=== PATIENT | male | born 1950 | race Caucasian/White ===

== ENCOUNTER 2021-09-06 10:59 | Inpatient (IN) | payer MEDICARE, OTHER, SELFPAY ==
[2021-09-06] VITALS (39 sets, daily range): BP systolic 86–140; BP diastolic 55–124; PULSE 68–94; RESP 11–38; TEMP 36–36.3; O2SAT 93–100; BMI 30.5
--- NOTE | ~2021-09-06 | US_ITS ---
EXAMINATION: US venous doppler [facility] DATE: 09/07/2021 19:10 INDICATION: elevated D-Dimer, SOB . TECHNIQUE: Grayscale images without and with compression and Doppler images of the bilateral lower ex tremity veins were obtained. COMPARISON: 02/27/2018. FINDINGS: The right common femoral vein, profunda (deep) femoral vein, femoral vein, popliteal vein, peroneal v ein, posterior tibial veins, gastrocnemius vein, and greater saphenous vein are patent. The left common femoral vein, profunda (deep) femoral vein, femoral vein, popliteal vein, peroneal ve in, posterior tibial veins, gastrocnemius vein, and greater saphenous vein are patent. IMPRESSION: 1. Patent bilateral lower extremity veins. No evidence of deep venous thrombosis Reviewed, dictated and finalized at location K. IMPRESSION: 1. Patent bilateral lower extremity veins. No evidence of deep venous thrombos is
--- NOTE | ~2021-09-06 | XR_ITS ---
EXAMINATION: XR chest 2V DATE: 09/06/2021 11:41 INDICATION: Shortness of breath. TECHNIQUE: Frontal and lateral views of the chest were obtained. COMPARISON: Chest 2 views 12/26/2018 FINDINGS: Tamiko B lines are noted, consistent with mild pulmonary edema. No pleural effusion or pneu mothorax. Cardiomegaly is noted. Median sternotomy wires and mediastinal surgical clips are seen, lik peggy from prior coronary artery bypass grafting. There is a left chest pacer/defibrillator with lead i n right ventricle. There is an old healed fracture of left clavicle. IMPRESSION: 1. Mild pulmonary edema. 2. Cardiomegaly. Reviewed, dictated and finalized at location B.
--- NOTE | ~2021-09-06 | XR_ITS ---
EXAMINATION: XR chest 2V DATE: 09/07/2021 14:08 INDICATION: Shortness of breath. TECHNIQUE: Frontal and lateral views of the chest were obtained. COMPARISON: Chest 2 views 09/06/2021 FINDINGS: There is no pneumonia, pleural effusion, or pneumothorax. Cardiomediastinal is noted. Media n sternotomy wires and mediastinal surgical clips are seen, likely from prior coronary artery bypass grafting. There is a left chest pacer/defibrillator with lead in right ventricle. There is an old hea led left clavicle fracture. IMPRESSION: 1. Cardiomegaly. Reviewed, dictated and finalized at location B. IMPRESSION: 1. Cardiomegaly.
--- NOTE | ~2021-09-06 | NM_ITS ---
EXAMINATION: NM pulmonary perfusion DATE: 09/08/2021 11:02 INDICATION: Shortness of breath. TECHNIQUE: 4.9 mCi Tc-99m MAA was administered intravenously for perfusion images. Scintigraphic jeremy ges of the chest were obtained. COMPARISON: Chest 2 views 09/07/2021 FINDINGS: Perfusion images show no defects. IMPRESSION: 1. Pulmonary embolism absent. Reviewed, dictated and finalized at location B.
--- NOTE | 2021-09-06 11:04 | ECG_ITS ---
Measurements Intervals [place] Rate: 78 P: FL: 0 QRS: 263 QRSD: 187 T: 109 QT: 471 QTc: 539 Interpretive Statements SINUS RHYTHM BORDERLINE AV CONDUCTION DELAY VENTRICULAR BIGEMINY RIGHT BUNDLE BRANCH BLOCK LEFT POSTERIOR FASCICULAR BLOCK ST-T WAVE ABNORMALITY IN ANTEROLATERAL LEADS- CONSIDER ISCHEMIA BASELINE ARTIFACT- I, III, AVR, AVL ABNORMAL ECG Electronically Signed On 09-06-2021 11:24:06 CDT by Perez Ariza D.O.
--- NOTE | 2021-09-06 12:31 | ED.SOB ---
HPI - SOB/Dyspnea General Chief Complaint: Shortness of Breath/Dyspnea Stated Complaint: dyspnea Time Seen by Provider: 09/06/21 11:50 History of Present Illness HPI Narrative: 71 y/o male presents to the ER today for worsening problems with shortness of breath over the past several days. He gets very short of breath and his O2 sats have been dropping into the 80s at home with minimal exertion. He has intermittent coughing spells as well, non-productive. No fever or chills. He denies having chest pain but says he gets annoying sensation in his ribs at times. No dizziness or lightheadeness. No abdominal pain, nausea or vomiting. No leg swelling. He has significant cardiac history. He has has 6 previous heart attacks. No history on file at our hospital. Related Data Allergies Allergy/AdvReac Type Severity Reaction Status Date / Time No Known Allergies Allergy Unknown Unverified 12/26/18 18:12 Review of Systems Constitutional: Constitutional: Denies chills, Denies fever(s) and Denies weakness Eyes: Eyes: Reports no additional eye complaints ENT: Reports system reviewed and no additional complaints, except as documented Cardiovascular: Cardiovascular: Reports no additional cardiovascular complaints, Denies chest pain and Denies radiating jaw, neck or arm pain Respiratory: Respiratory: Reports cough, Reports dyspnea and Denies wheezing Gastrointestinal: Gastrointestinal: Denies abdominal pain, Denies diarrhea, Denies nausea and Denies vomiting Genitourinary: Genitourinary: Denies oliguria, Denies dysuria and Denies urinary frequency Musculoskeletal: Musculoskeletal: Denies back pain, Denies myalgias and Denies arthralgias Integumentary/Breasts: Skin/Breast: Reports system reviewed and no additional complaints, except as docu Neurologic: Denies dizziness, Denies headache(s), Denies focal weakness and Denies numbness Psychiatric: Psychiatric: Denies anxiety and Denies depression Endocrine: Endocrine: Denies fatigue Hematologic/Lymphatic: Hematologic/Lymphatic: Reports no additional hematologic/lymphatic complaints Allergic/Immunologic: Allergic/Immunologic: Reports no additional allergic/immunologic complaints [facility] Past Medical History Medical History (Updated 09/06/21 @ 18:31 by Lata Lara, SANA) CAD (coronary artery disease) CHF (congestive heart failure) Myocardial infarction Exam Const: General: no acute distress Orientation/consciousness: patient oriented x3 HENMT: Head: normal to inspection Eyes: Conjunctivae: conjunctivae normal Neck: Neck: normal visual inspection Chest: Chest palpation & inspection: normal inspection of the chest Resp: Effort & Inspection: normal respiratory effort Auscultation: clear to auscultation bilaterally Cardio: Rate: regular rate Rhythm: regular rhythm GI: GI Palp: Yes Soft to palpation, No Tenderness to palpation present (GI) and No Guarding due to palpation present (GI) : Male General Exam: Yes normal external exam Testes: Testes normal Skin: General skin exam: normal color Rashes: no rashes Neuro: General: patient oriented x3 Extrem: General: normal to inspection Psych: Mental Status: mental status grossly normal Affect: normal affect Attitude: cooperative Course Course Emergency Course: 1500 Discussed with Yana CARY, hospitalist, accepting patient for admission for CHF exacerbation. Vital Signs Vital signs: Vital Signs Temperature 36.3 C L 09/06/21 11:03 Pulse Rate 79 09/06/21 11:03 Respiratory Rate 21 H 09/06/21 11:03 Blood Pressure 131/89 09/06/21 11:03 Pulse Oximetry 97 09/06/21 11:03 Temperature 36.3 C L 09/06/21 11:03 Pulse Rate 70 09/06/21 16:32 Respiratory Rate 23 H 09/06/21 16:32 Blood Pressure 110/85 09/06/21 16:02 Pulse Oximetry 97 09/06/21 16:32 MDM - SOB/Dyspnea Lab Data Attestation: I reviewed the patient's lab results. Result diagrams: 09/06/21 12:35 09/06/21 12:35
[2021-09-06 12:44] LABS: Basophils Absolute Auto 0.1 K/mm3 (0.0-0.1); Basophils Percent Auto 0.6 % (0.2-1.2); Eosinophils Percent Auto 0.2 % (0-4.4); Hematocrit 52.6 % (42.0-52.0); Hemoglobin 17.3 g/dL (14.0-18.0); Immature Granulocyte Absolute 0.02 K/mm3 (0.00-0.031); Immature Granulocyte Percent A 0.2 % (0-0.5); Lymphocytes Absolute Auto 1.08 K/mm3 (0.9-3.2); Mean Corpuscular HGB Conc 32.9 g/dl (32-36); Mean Corpuscular Hemoglobin 28.7 pg (26-34); Mean Corpuscular Volume 87.2 fl (80-100); Mean Platelet Volume 11.3 fl (7.4-10.4); Monocytes Absolute Auto 0.3 K/mm3 (0.1-0.6); Neutrophils Absolute Auto 7.6 K/mm3 (1.3-6.7); Platelet Count Result 171 k/mm3 (150-375); Red Blood Count 6.03 M/mm3 (4.6-6.20); Red Cell Distribution Width 13.2 % (11.5-14.5)
[2021-09-06 12:56] LABS: Alanine Aminotransferase 19 U/L (6-50); Albumin Level 4.2 g/dL (3.5-5.1); Alkaline Phosphatase 67 U/L (38-126); Anion Gap 8 mmol/L (8-16); Aspartate Amino Transferase 23 U/L (17-59); Bilirubin,Total 1.3 mg/dL (0.2-1.3); Blood Urea Nitrogen 18 mg/dL (9-20); Calcium 8.3 mg/dL (8.4-10.2); Carbon Dioxide 23 mmol/L (22-30); Chloride 106 mmol/L (98-107); Estimated CRCL calculation 55 ml/min; Estimated Glomerular Filt Rate 54; Glucose 116 mg/dL (65-110); Potassium 3.9 mmol/L (3.4-5.0); Sodium 137 mmol/L (137-145)
[2021-09-06 12:58] LABS: INR 1.2; Prothrombin Time 14.3 Seconds (11.1-14.7)
[2021-09-06 12:59] LABS: Partial Thromboplastin Time 27.9 SECONDS (22.3-36.8)
[2021-09-06 13:08] LABS: NT Pro B Type Natriuretic Pept 4440 pg/mL (5-100); Troponin I 0.029 ng/mL (0.000-0.034)
[2021-09-06] MEDS: FUROSEMIDE INJ 40 MG/4 ML VIAL IV PUSH (14:32)
--- NOTE | 2021-09-06 17:33 | PM.IMHP ---
H&P: HPI History of Present Illness Date/Time: 09/06/21 17:33 this is a 71-year-old male patient who states that he does have CHF he came to the emergency room today for worsening shortness of breath over the last several days. The patient stated that his O2 was dropping to the 80s at home with minimal exertion. Also when the patient fell asleep in the emergency room his son stated that the patient was having periods of apnea. The patient denies having any chest pain. The patient has no fever chills. No abdominal pain no nausea vomiting. He has trace swelling to his lower extremities. The patient does have a significant cardiac history with a triple bypass in 2 stents. He also has a defibrillator. The patient goes elsewhere for his cardiology care. EKG today shows sinus rhythm borderline AV conduction delay ventricular bigeminy right bundle branch block. Left posterior fascicular block. ST T-wave abnormality in anterolateral leads consider ischemia. Baseline artifact 1 3 AVR and aVL. Troponin negative x2. BNP is 4440. Patient typically has his care at [facility]. Patient is on room air and his chest x-ray was read as mild pulmonary edema. Cardiomegaly. Patient was given IV Lasix in the emergency room. The patient voided approximately 2000 mL in the emergency room. The patient also has a history of COPD. The patient is being admitted for observation on the date of service of 09/06/2021. Chief Complaint: Shortness of breath Review of Systems Review of Systems: All systems reviewed & are unremarkable except as noted in HPI and below Constitutional: Constitutional: Reports as per HPI and Reports no additional constitutional complaints Eyes: Eyes: Reports as per HPI and Reports no additional eye complaints ENT: Reports system reviewed and no additional complaints, except as documented and Reports Normal hearing present Cardiovascular: Cardiovascular: Reports no additional cardiovascular complaints Respiratory: Respiratory: Reports no additional respiratory complaints and Reports no additional respiratory complaints Gastrointestinal: Gastrointestinal: Reports as per HPI and Reports no additional gastrointestinal complaints Musculoskeletal: Musculoskeletal: Reports no additional musculoskeletal complaints Integumentary/Breasts: Skin/Breast: Reports system reviewed and no additional complaints, except as docu and Reports as per HPI Neurologic: Reports system reviewed and no additional complaints, except as documented, Reports as per HPI and Reports Normal hearing present Psychiatric: Psychiatric: Reports no additional psychiatric complaints and Reports as per HPI Endocrine: Endocrine: Reports no additional endocrine complaints Hematologic/Lymphatic: Hematologic/Lymphatic: Reports no additional hematologic/lymphatic complaints Allergic/Immunologic: Allergic/Immunologic: Reports no additional allergic/immunologic complaints [facility], [facility] Past Medical History Medical History (Updated 09/06/21 @ 22:14 by Yana Joseph NP) CAD (coronary artery disease) Cardiac defibrillator in situ CHF (congestive heart failure) COPD (chronic obstructive pulmonary disease) HTN (hypertension), malignant Hyperlipidemia Myocardial infarction Surgical History Surgical History History of coronary artery stent placement X2 History of tonsillectomy S/P triple vessel bypass Family History Family History (Updated 09/06/21 @ 22:14 by Yana Joseph NP) Mother Acute myocardial infarction Social History Social History (Updated 09/06/21 @ 22:15 by Yana Joseph NP) Social History: The patient lives at home with his . He has 4 children. His is the durable power claims attorney for healthcare. The patient occasionally has a social drink. The patient stated that he quit smoking at the beginning of COVID 19. He is retired. Code status full code Smoking packs per day: 1 Smoking c
--- NOTE | 2021-09-06 18:29 | PC.NURSE ---
This patient, Lamont Bustillo, was admitted to Medical Room 258-01. Patient/family oriented to hospital policies and general routines including ID bracelet, bed and alarms, visiting hours, pain management, procedures, bathroom and other care routines, personal items, smoking policy, room service/diet, and visiting hours. Information on how to activate the Rapid Response Team has been discussed. Patient/Family are encouraged to report perceived risks to care and to ask questions if they do not understand what they are told or what they should do.
[2021-09-06 20:20] LABS: Troponin I 0.033 ng/mL (0.000-0.034)
[2021-09-07] VITALS (14 sets, daily range): BP systolic 100–109; BP diastolic 74–77; PULSE 52–93; RESP 18–22; TEMP 36.1–36.3; O2SAT 95–100
--- NOTE | 2021-09-07 | ECHO_ITS ---
Patient Info Name: Lamont Bustillo Age: 71 years : 1950 Gender: Male Ht: 71 in Wt: 219 lbs BSA: 2.26 m2 HR: 93 bpm BP: 100 / 77 mmHg Heart Rhythm: Sinus Rhythm Technical Quality: Fair Exam Date: 09/07/2021 8:47 AM Exam Location: [facility] Pulmonary Patient Status: Outpatient Admit Date: 09/06/2021 Staff Ordering Physician: Yana Joseph NP Plastic And Reconstructive Surgeon: Khushboo Rossi RDCS Attending Provider: Mckenna Stokes PA-C Referring Physician: Jake LANDRUM; Exam Type: CA echo dop color flow w con Study Info Indications - pulmonary edema Complete two-dimensional, color flow and Doppler transthoracic echocardiogram is performed with contrast to opacify the left ventricle and to improve the deliniation of the left ventricle endocardial borders. Contrast/Agitated Saline Contrast/Ag. Saline: Definity Amount: 2.00 ml Administered By: Khushboo Rossi RDCS Existing IV Access: Yes IV Access Condition: patent with no signs of infiltration Summary 1. Echo contrast was used. Severe LV enlargement, normal wall thickness, severe global LV systolic dysfunction, ejection fraction about 20-25%. Grade 3/4 diastolic dysfunction. Mild left atrial enlargement. Normal mitral valve structure, trivial MR. Normal aortic valve structure, no stenosis or regurgitation. Trace TR, mild pulmonary hypertension, RVSP 36 mmHg. Left Ventricle Left ventricular chamber dimension is severely enlarged. Left ventricular systolic function is severely reduced, estimated at 20-25%. There is no increased left ventricular wall thickness. The left ventricular diastolic function is abnormal. Right Ventricle Right ventricular chamber dimension is normal. Right ventricular systolic function is reduced. Left Atria Left atrial chamber dimension is mildly enlarged. Right Atria Right atrial chamber dimension is mildly enlarged. Aortic Valve The aortic valve is normal. There is no aortic valve stenosis. Pulmonic Valve The pulmonic valve is normal. Mitral Valve The mitral valve has normal leaflets. There is trace mitral valve regurgitation. Tricuspid Valve The tricuspid valve leaflets are normal. There is trace tricuspid valve regurgitation. Mild pulmonary hypertension, estimated pulmonary arterial systolic pressure is 36 mmHg. Pericardium/Pleural The pericardium appears normal. Aorta The aortic root size at the sinus of Valsalva is normal. Left Ventricular Outflow Tract Name Value Normal LVOT 2D LVOT Diameter 2.10 cm LVOT Doppler LVOT Peak Gradient 2 mmHg LVOT Mean Gradient 1 mmHg LVOT VTI 10.74 cm LVOT VTI/AV VTI Ratio 0.68 LVOT Stroke Volume 37.17 ml LVOT CO 2.33 l/min LVOT CI 1.03 L/min/m2 Pulmonic Valve Name Value Normal
[2021-09-07 05:25] LABS: Basophils Absolute Auto 0.1 K/mm3 (0.0-0.1); Basophils Percent Auto 0.7 % (0.2-1.2); Eosinophils Absolute Auto 0.1 K/mm3 (0-0.3); Eosinophils Percent Auto 1.5 % (0-4.4); Hematocrit 49.8 % (42.0-52.0); Hemoglobin 16.7 g/dL (14.0-18.0); Immature Granulocyte Absolute 0.03 K/mm3 (0.00-0.031); Immature Granulocyte Percent A 0.4 % (0-0.5); Lymphocytes Absolute Auto 2.17 K/mm3 (0.9-3.2); Lymphocytes Percent Auto 30.1 % (18.3-44.2); Mean Corpuscular HGB Conc 33.5 g/dl (32-36); Mean Corpuscular Hemoglobin 29.2 pg (26-34); Mean Corpuscular Volume 87.2 fl (80-100); Mean Platelet Volume 11.3 fl (7.4-10.4); Monocytes Absolute Auto 0.4 K/mm3 (0.1-0.6); Neutrophils Absolute Auto 4.4 K/mm3 (1.3-6.7); Neutrophils Percent Auto 61.3 % (45.5-73.1); Platelet Count Result 146 k/mm3 (150-375); Red Blood Count 5.71 M/mm3 (4.6-6.20); Red Cell Distribution Width 12.8 % (11.5-14.5); White Blood Count 7.2 K/mm3 (4.5-10.0)
[2021-09-07 05:32] LABS: Alanine Aminotransferase 18 U/L (6-50); Albumin Level 4.1 g/dL (3.5-5.1); Alkaline Phosphatase 64 U/L (38-126); Anion Gap 10 mmol/L (8-16); Aspartate Amino Transferase 23 U/L (17-59); Blood Urea Nitrogen 20 mg/dL (9-20); Calcium 8.4 mg/dL (8.4-10.2); Carbon Dioxide 21 mmol/L (22-30); Chloride 106 mmol/L (98-107); Estimated CRCL calculation 48 ml/min; Estimated Glomerular Filt Rate 46; Glucose 106 mg/dL (65-110); Potassium 3.6 mmol/L (3.4-5.0); Sodium 137 mmol/L (137-145)
--- NOTE | 2021-09-07 08:47 | PM.IMPN ---
Progress Note: A&P Assessment and Plan (1) Acute exacerbation of CHF (congestive heart failure): Qualifiers: Heart failure type: unspecified Qualified Code(s): I50.9 - Heart failure, unspecified <Mckenna Stokes PA-C - Last Filed: 09/07/21 12:13> Code(s): I50.9 - Heart failure, unspecified <Mckenna Stokes PA-C - Last Filed: 09/07/21 12:13> Status: Acute <Mckenna TonyKathi Stokes PA-C - Last Filed: 09/07/21 12:13> Assessment and Plan: 09/07/2021 echo shows severe LV enlargement, severe global LV systolic dysfunction, EF 20-25%. Grade 3/4 diastolic dysfunction. Mild left atrial enlargement. No prior echos to compare to. Given his history I have consulted Cardiology and greatly appreciate their recommendations. Patient was admitted for shortness of breath x several days. Troponin I and 3 hour or 0.29 and 0.33 respectively, given his history, will complete third troponin. He does endorse orthopnea, PND, and his family does observed apneic episodes. Denies lower extremity swelling. EKG shows bigeminy, RBBB, LPFB, and ST-T wave abnormalities in Leads V1-V3. Chest x-ray was read as mild pulmonary edema with cardiomegaly. Patient was given IV Lasix and has already had 2000 mL out. Please continue with strict I&O. Continue with Coreg and lisinopril. Echo ordered Final troponin. Consult placed to cardiology Will continue diuresis. Daily weights Strict I&Os <Mckenna Stokes PA-C - Last Filed: 09/07/21 12:13> (2) Hx of CABG: Code(s): Z95.1 - Presence of aortocoronary bypass graft <Mckenna Stokes PA-C - Last Filed: 09/07/21 12:13> Status: Acute <Mckenna Stokes PA-C - Last Filed: 09/07/21 12:13> Assessment and Plan: Patient denies any chest pain, diaphoresis. Serial troponins negative here. Review of labs shows troponin elevations in 2019. Patient does verbally report history of CABG and now s/p revision potentially in 2020. He is a poor historian, and he is uncertain when he last saw his social psychologist. Patient is unsure if he takes aspirin and Plavix anymore at home. I do see that it is on his med list and have continued here. I have consulted cardiology given his history. Continue aspirin and plavix Continue to monitor for chest pain. <Mckenna Stokes PA-C - Last Filed: 09/07/21 12:13> (3) Ventricular bigeminy: Code(s): I49.8 - Other specified cardiac arrhythmias <Mckenna Stokes PA-C - Last Filed: 09/07/21 12:13> Status: Acute <Mckenna Stokes PA-C - Last Filed: 09/07/21 12:13> Assessment and Plan: Ventricular bigeminy seen upon admission. Patient is reportedly having runs of V-tach during his stay, and is symptomatically dyspneic during these. He does have a cardiac pacemaker defibrillator, and he states it has never gone off. He denies syncope or near syncope. TSH normal magnesium 2.0, potassium 3.6, calcium 8.4. Continue to monitor, plan as above. <Mckenna Stokes PA-C - Last Filed: 09/07/21 12:13> (4) Sleep apnea: Code(s): G47.30 - Sleep apnea, unspecified <Mckenna Stokes PA-C - Last Filed: 09/07/21 12:13> Status: Acute <Mckenna Stokes PA-C - Last Filed: 09/07/21 12:13> Assessment and Plan: Son reports several minutes on apneic episodes last night in the ER. Patient has never been previously evaluated for sleep apnea. ApneaLink was ordered on patient which showed N HI od 25.4 and probably silvia franco respirations with 112 apneic episodes. Patient hs a suspected breathing disorder, will be referred for OP sleep study. <Mckenna Stokes PA-C - Last Filed: 09/07/21 12:13> (5) COPD (chronic obstructive pulmonary disease): Code(s): J44.9 - Chronic obstructive pulmonary disease, unspecified <Mckenna Stokes PA-C - Last Filed: 09/07/21 12:13> Status: Acute <Mckenna Stokes PA-C - Last Filed: 09/07/21 12:13> As
[2021-09-07] MEDS: ATORVASTATIN 40 MG TABLET 80 MG PO (09:04)
[2021-09-07] MEDS: CLOPIDOGREL BISULFATE 75 MG TABLET PO (09:04)
[2021-09-07] MEDS: lisinopriL 20 MG TABLET PO (09:04)
[2021-09-07] MEDS: ENOXAPARIN 40 MG/0.4 ML SYRINGE SUB-Q (09:04)
[2021-09-07] MEDS: FUROSEMIDE INJ 40 MG/4 ML VIAL IV PUSH (09:04)
[2021-09-07] MEDS: carvediloL 25 MG TABLET PO ×2 (09:04→21:25)
[2021-09-07] MEDS: ASPIRIN 81 MG CHEWABLE TABLET PO (09:05)
[2021-09-07] MEDS: UMECLIDINIUM BROMIDE 62.5 MCG ELLIPTA 1 PUFF INHALATION (09:05)
[2021-09-07] MEDS: PERFLUTREN LIPID MICROSPHERES 1.5 ML VIAL DILUTED TO 10 ML TOTAL VOLUME IV PUSH (09:30)
--- NOTE | 2021-09-07 09:31 | IVDEFINITY ---
Prior to administration of IV Definity the patient was educated on the risks and benefits of the imaging enhancing agent including potential adverse side effects. The patient verbalized understanding. Allergies were verified. No exclusion criteria were identified and at least one of the following inclusion criteria were met: 1) physician request, 2) patient technically difficult to image (per the [place] [employer]chocardi[employer] guidelines of two or more segments not discernable within the apical view), or 3) questionable left ventricular function. ?
--- NOTE | 2021-09-07 09:42 | ECG_ITS ---
Measurements Intervals [place] Rate: 70 P: 57 MD: 201 QRS: 166 QRSD: 199 T: 73 QT: 463 QTc: 501 Interpretive Statements SINUS RHYTHM FREQUENT VENTRICULAR PREMATURE COMPLEXES RIGHT BUNDLE BRANCH BLOCK LEFT POSTERIOR FASCICULAR BLOCK ST-T WAVE ABNORMALITY IN ANTEROLATERAL LEADS- CONSIDER ISCHEMIA ABNORMAL ECG Electronically Signed On 09-07-2021 10:30:34 CDT by Perez Ariza D.O.
[2021-09-07 09:49] LABS: Troponin I 0.024 ng/mL (0.000-0.034)
--- NOTE | 2021-09-07 12:33 | PC.NURSE ---
1010am Called Mckenna DE LUNA to report Stat EKG findings. No new orders given.
[2021-09-07] MEDS: ALBUTEROL SULFATE NEB 2.5 MG/3 ML INH 0.63 MG INHALATION (13:39)
--- NOTE | 2021-09-07 14:06 | PM.CNCAR ---
Assessment and Plan Assessment and plan (1) Acute on chronic combined systolic and diastolic CHF (congestive heart failure): Code(s): I50.43 - Acute on chronic combined systolic (congestive) and diastolic (congestive) heart failure Status: Acute Assessment and Plan: Patient has worsening shortness of breath, somewhat odd because of its episodic nature which can occur at rest. Volume overloaded on admission, with edema and an elevated BNP. Does not appear to be very volume overloaded today, after receiving IV diuretic therapy. Chest x-ray is clear today.. Some of the patient's problem is just severe cardiomyopathy and very poor cardiac output. Wonder if some of the episodic nature is due to Valeriano-Brar respiration? Some is probably due to orthopnea and PND. I also wonder if any of this is due to arrhythmias--some tachycardia seen particularly with activity, but nothing that is clearly atrial fibrillation. Occasionally the patient's heart rate will a drop suddenly and he will start pacing VVI rate 40. Also he has spells of ventricular bigeminy. Unlikely that this is due to intermittent ischemic events. Troponins are minimally elevated and flat, and there is no chest pain. However, I will compare his current EKGs with old ones. Check a D-dimer, consider PE etc. although unlikely. (2) Ischemic cardiomyopathy: Code(s): I25.5 - Ischemic cardiomyopathy Status: Acute Assessment and Plan: Longstanding severe ischemic cardiomyopathy, EF 20-25%. Currently taking carvedilol and lisinopril Try switching lisinopril to enalapril, although this is not affordable in the past. Add spironolactone Add Farxiga Unlikely to benefit from an upgrade to a biventricular pacemaker since he has a right bundle branch block, not a left bundle branch block. Would be hesitant to use dobutamine or Milrinone because of his frequent ventricular ectopy. Try to increase carvedilol, samaria becaue of the ventricular ectopy, if his heart rate and blood pressure allow. (3) PVCs (premature ventricular contractions): Code(s): I49.3 - Ventricular premature depolarization Status: Acute Assessment and Plan: Patient has frequent PVCs, some brief nonsustained ventricular tachycardia, and occasional bigeminy. (4) Bradycardia: Code(s): R00.1 - Bradycardia, unspecified Status: Acute Assessment and Plan: Patient has exhibited a couple episodes of fairly abrupt but also fairly brief bradycardia during which he paces VVI rate 40. Has a single lead ICD; if he has frequent episodes of bradycardia and paces a lot we may need to consider an upgrade to a dual chamber device. So far I do not see evidence that we need to pursue this. (5) ICD (implantable cardioverter-defibrillator) in place: Code(s): Z95.810 - Presence of automatic (implantable) cardiac defibrillator Status: Acute Assessment and Plan: Implanted for primary prevention, no therapies delivered. (6) CAD (coronary artery disease): Code(s): I25.10 - Atherosclerotic heart disease of [place] coronary artery without angina pectoris Status: Acute Assessment and Plan: Extensive coronary history with CABG and interventions in the past. Flat troponins, minimally elevated No chest pain CAD is probably stable. Continue aspirin, Plavix and atorvastatin Patient does have anterolateral T-wave inversion however, will try to find an old EKG for comparison. (7) MADHU (obstructive sleep apnea): Code(s): G47.33 - Obstructive sleep apnea (adult) (pediatric) Status: Acute Assessment and Plan: Apnea link suggested sleep apnea and possible Valeriano-Brar respiration. Son describes seeing cyclical breathing consistent with Valeriano-Brar respiration, a sign of severely poor cardiac output History of Present Illness History of Present Illness Consult date/time: 09/07/21 14:06 Reason For Visit: CHF exa
[2021-09-07 15:56] LABS: D Dimer 1.74 ug/mL (<0.48)
[2021-09-07] MEDS: busPIRone HCL 10 MG, busPIRone HCL 5 MG 15 MG PO (21:25)
[2021-09-08] VITALS (23 sets, daily range): BP systolic 80–120; BP diastolic 40–72; PULSE 48–64; RESP 17–20; TEMP 35.8–36.3; O2SAT 93–100
[2021-09-08] MEDS: ALBUTEROL SULFATE NEB 2.5 MG/3 ML INH 0.63 MG INHALATION ×4 (02:09→21:20)
[2021-09-08] MEDS: carvediloL 25 MG TABLET PO (08:30)
[2021-09-08] MEDS: ENOXAPARIN 40 MG/0.4 ML SYRINGE SUB-Q (08:30)
[2021-09-08] MEDS: EMPAGLIFLOZIN 10 MG TABLET PO (08:30)
[2021-09-08] MEDS: UMECLIDINIUM BROMIDE 62.5 MCG ELLIPTA 1 PUFF INHALATION (08:31)
[2021-09-08] MEDS: ASPIRIN 81 MG CHEWABLE TABLET PO (08:31)
[2021-09-08] MEDS: ATORVASTATIN 40 MG TABLET 80 MG PO (08:31)
[2021-09-08] MEDS: busPIRone HCL 10 MG, busPIRone HCL 5 MG 15 MG PO ×2 (08:31→21:08)
[2021-09-08] MEDS: CLOPIDOGREL BISULFATE 75 MG TABLET PO (08:31)
[2021-09-08] MEDS: SPIRONOLACTONE 25 MG TABLET PO (08:31)
[2021-09-08] MEDS: FUROSEMIDE INJ 40 MG/4 ML VIAL IV PUSH (09:40)
--- NOTE | 2021-09-08 13:22 | PM.IMPN ---
Progress Note: A&P Assessment and Plan (1) Acute exacerbation of CHF (congestive heart failure): Qualifiers: Heart failure type: unspecified Qualified Code(s): I50.9 - Heart failure, unspecified Code(s): I50.9 - Heart failure, unspecified Status: Acute Assessment and Plan: 09/07/2021 echo shows severe LV enlargement, severe global LV systolic dysfunction, EF 20-25%. Grade 3/4 diastolic dysfunction. Mild left atrial enlargement. No prior echos to compare to. Given his history I have consulted Cardiology and greatly appreciate their recommendations. Patient was admitted for shortness of breath x several days. Troponins are minimally elevated and flat. He does endorse orthopnea, PND, and his family does observed apneic episodes. Denies lower extremity swelling. EKG shows bigeminy, RBBB, LPFB, and ST-T wave abnormalities in Leads V1-V3. Chest x-ray was read as mild pulmonary edema with cardiomegaly. Patient is on 40 mg IV Lasix daily with good output. Continue with Coreg and lisinopril. Echo reviewed Final troponin. Will continue diuresis. Daily weights Strict I&Os Further management per cardiology (2) Hx of CABG: Code(s): Z95.1 - Presence of aortocoronary bypass graft Status: Acute Assessment and Plan: Patient denies any chest pain, diaphoresis. Serial troponins minimally elevated but flat as noted above. Review of labs shows troponin elevations in 2019. Patient does verbally report history of CABG and now s/p revision potentially in 2019. 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 Patient is unsure if he takes aspirin and Plavix anymore at home. I do see that it is on his med list and have continued here. I have consulted cardiology given his history. Continue aspirin and plavix (3) Ventricular bigeminy: Code(s): I49.8 - Other specified cardiac arrhythmias Status: Acute Assessment and Plan: Ventricular bigeminy seen upon admission. Patient is reportedly having runs of V-tach during his stay, and is symptomatically dyspneic during these. He does have a cardiac pacemaker defibrillator, and he states it has never gone off. He denies syncope or near syncope. TSH normal magnesium 2.0, potassium 3.6, calcium 8.4. Continue to monitor, plan as above. (4) Sleep apnea: Code(s): G47.30 - Sleep apnea, unspecified Status: Acute Assessment and Plan: Son reports several minutes on apneic episodes last night in the ER. Patient has never been previously evaluated for sleep apnea. ApneaLink was ordered on patient which showed N HI od 25.4 and probably silvia franco respirations with 112 apneic episodes. Patient has a suspected breathing disorder. Consulted pulmonology as patient will need follow up for his COPD and MADHU and has never established with a log clerk. Will likely need to go home with home oxygen overnight until he can get a formal sleep study and CPAP (5) COPD (chronic obstructive pulmonary disease): Code(s): J44.9 - Chronic obstructive pulmonary disease, unspecified Status: Acute Assessment and Plan: Patient does not require supplemental oxygen at home. Saturating 99 on 2 L supplemental O2. Continue with Spiriva and albuterol. Currently has venturi mask, saturating 99% on RA, but continues to feel sob pulmonary consult appreciated (6) Hyperlipidemia: Code(s): E78.5 - Hyperlipidemia, unspecified Status: Acute Assessment and Plan: Continue with atorvastatin. (7) HTN (hypertension), malignant: Code(s): I10 - Essential (primary) hypertension Status: Acute Assessment and Plan: Continue with Coreg and lisinopril. (8) Hyperventilation: Code(s): R06.4 - Hyperventilation Status: Acute Assessment and Plan: -pt has been noted to have panic like episodes
[2021-09-08] MEDS: IPRATROPIUM BR 0.02% INH SOLN 0.5 MG/2.5 ML VIAL INHALATION ×2 (13:46→21:50)
--- NOTE | 2021-09-08 14:20 | PM.PNCARD ---
Progress Note: A&P Assessment and Plan (1) Acute on chronic combined systolic and diastolic CHF (congestive heart failure): Code(s): I50.43 - Acute on chronic combined systolic (congestive) and diastolic (congestive) heart failure Status: Acute Assessment and Plan: Patient has worsening shortness of breath, somewhat odd because of its episodic nature which can occur at rest. Mild volume overloaded on admission, with edema and an elevated BNP. Quickly resolved, after receiving IV diuretic therapy. Chest x-ray is clear today. PE ruled out May have a component of anxiety However, he has some periods of sinus bradycardia and has frequent ventricularly paced beats (ICD is set to pace when HR < 40 BPM), competing with atrial beats since he has just a single lead ICD implanted. Perhaps the bradycardia and AV desynchrony is contributing. Also, the pt just resumed his carvedilol 1 week ago and his problems worsened a few days ago, so his bradycardia may be worse than previous. Rec we reduce the carvedilol fr 25 mg BID to 6.25 mg BID and follow. Hold if HR < 60. If this problem continues, he may need an upgrade to a dual chamber device, or an electrophysiology consultation. (2) Ischemic cardiomyopathy: Code(s): I25.5 - Ischemic cardiomyopathy Status: Acute Assessment and Plan: Longstanding severe ischemic cardiomyopathy, EF 20-25%. Currently taking carvedilol and lisinopril Try switching lisinopril to Entresto, although this is not affordable in the past. (Will try this when BP better.) Added spironolactone Added Farxiga Unlikely to benefit from an upgrade to a biventricular pacemaker since he has a right bundle branch block, not a left bundle branch block. Would be hesitant to use dobutamine or Milrinone because of his frequent ventricular ectopy. (3) PVCs (premature ventricular contractions): Code(s): I49.3 - Ventricular premature depolarization Status: Acute Assessment and Plan: Patient has frequent PVCs, some brief nonsustained ventricular tachycardia, and occasional bigeminy. (4) Bradycardia: Code(s): R00.1 - Bradycardia, unspecified Status: Acute Assessment and Plan: Patient has exhibited a couple episodes of fairly abrupt but also fairly brief bradycardia during which he paces VVI rate 40. Has a single lead ICD; if he has frequent episodes of bradycardia and paces a lot we may need to consider an upgrade to a dual chamber device. REducing carvedilol dose (5) Hypotension: Code(s): I95.9 - Hypotension, unspecified Status: Acute Assessment and Plan: BP 80/60 this afternoon. Reducing carvedilol Discontinue IV furosemide IV fluids 125 ccc/hr X 2 hours; may need more (6) ROMIE (acute kidney injury): Code(s): N17.9 - Acute kidney failure, unspecified Status: Acute Assessment and Plan: BUN and creat rising Reduced/discontinued meds as above Small infusion IV fluids (7) ICD (implantable cardioverter-defibrillator) in place: Code(s): Z95.810 - Presence of automatic (implantable) cardiac defibrillator Status: Acute Assessment and Plan: Implanted for primary prevention, no therapies delivered. (8) CAD (coronary artery disease): Code(s): I25.10 - Atherosclerotic heart disease of [place] coronary artery without angina pectoris Status: Acute Assessment and Plan: Extensive coronary history with CABG and interventions in the past. Flat troponins, minimally elevated No chest pain CAD is probably stable. Continue aspirin, Plavix and atorvastatin Patient does have anterolateral T-wave inversion however, unable to find any old EKGs in our system or Epic for comparison. (9) MADHU (obstructive sleep apnea): Code(s): G47.33 - Obstructive sleep apnea (adult) (pediatric) Status: Acute Assessment and Plan: Apnea link suggested sleep apnea and possible C
[2021-09-08 14:30] LABS: Basophils Percent Auto 0.4 % (0.2-1.2); Eosinophils Percent Auto 0.4 % (0-4.4); Hematocrit 50.2 % (42.0-52.0); Hemoglobin 16.7 g/dL (14.0-18.0); Immature Granulocyte Absolute 0.02 K/mm3 (0.00-0.031); Immature Granulocyte Percent A 0.3 % (0-0.5); Lymphocytes Absolute Auto 1.16 K/mm3 (0.9-3.2); Lymphocytes Percent Auto 14.8 % (18.3-44.2); Mean Corpuscular HGB Conc 33.3 g/dl (32-36); Mean Corpuscular Volume 87.2 fl (80-100); Mean Platelet Volume 11.6 fl (7.4-10.4); Monocytes Absolute Auto 0.3 K/mm3 (0.1-0.6); Monocytes Percent Auto 3.8 % (2.6-8.5); Neutrophils Absolute Auto 6.3 K/mm3 (1.3-6.7); Neutrophils Percent Auto 80.3 % (45.5-73.1); Platelet Count Result 175 k/mm3 (150-375); Red Blood Count 5.76 M/mm3 (4.6-6.20); Red Cell Distribution Width 13.1 % (11.5-14.5); White Blood Count 7.9 K/mm3 (4.5-10.0)
--- NOTE | 2021-09-08 14:31 | PM.CNPUL ---
Assessment and Plan Assessment and plan (1) Acute on chronic combined systolic and diastolic CHF (congestive heart failure): Code(s): I50.43 - Acute on chronic combined systolic (congestive) and diastolic (congestive) heart failure Status: Acute Assessment and Plan: This 71-year-old man has history of congestive heart failure, coronary artery disease with previous MIs, presented with increasing shortness of breath related to exacerbation of his congestive heart failure. The patient is currently on treatment for his cardiac disease. He has history of COPD for which he has been on maintenance Lama bronchodilator for the last 2 years. there was no evidence of COPD exacerbation at this point. No previous pulmonary function testing are available. The patient was found to have evidence of sleep disordered breathing on ApneaLink while on supplemental oxygen 2 liters/minute. However, there was no significant oxyhemoglobin desaturation on oxygen 2 liters/minute. The patient will require a sleep study as outpatient as he may have sleep apnea. He will probably need supplemental oxygen 2 liters/minute while waiting for sleep apnea. 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 (2) COPD (chronic obstructive pulmonary disease): Code(s): J44.9 - Chronic obstructive pulmonary disease, unspecified Status: Acute (3) Nocturnal hypoxemia: Code(s): G47.34 - Idiopathic sleep related nonobstructive alveolar hypoventilation Status: Acute History of Present Illness History of Present Illness Consult date: 09/08/21 Chief complaint: CHF exacerbation Narrative: This 71-year-old man presented with shortness of breath. The patient has history of ischemic cardiomyopathy congestive heart failure, previous IA and previous coronary artery bypass grafting, status post pacemaker implantation approximately 2 years ago. In addition the patient has history of COPD diagnosed after pulmonary function testing at [facility] approximately 2 years ago. Since then he has been on Spiriva inhaler and short-acting bronchodilators for p.r.n. use. The patient had shortness of breath which was mostly episodic but no cough sputum production. He had no wheezing. He reported chronic orthopnea. Patient has been diagnosed with exacerbation of his CHF and has been followed by cardiology services. Workup with chest x-ray showed no lung infiltrates cardiomegaly. His BNP was elevated and workup for pulmonary embolism with perfusion scan was negative for pulmonary embolism. Patient underwent apnea link on 2 liters/minute supplemental oxygen which showed elevated AHI but no significant oxyhemoglobin desaturation. Patient never had a history of sleep apnea. Review of Systems Review of Systems: All systems reviewed & are unremarkable except as noted in HPI and below PMFSH Past Medical History Medical History (Updated 09/08/21 @ 14:40 by Carlos Bernard MD) Acute on chronic combined systolic and diastolic CHF (congestive heart failure) Bradycardia CAD (coronary artery disease) Cardiac defibrillator in situ CHF (congestive heart failure) COPD (chronic obstructive pulmonary disease) HTN (hypertension), malignant Hyperlipidemia ICD (implantable cardioverter-defibrillator) in place Ischemic cardiomyopathy Myocardial infarction MADHU (obstructive sleep apnea) PVCs (premature ventricular contractions) Surgical History Surgical History History of coronary artery stent placement X2 History of tonsillectomy S/P triple vessel bypass Family History Family History Mother Acute myocardial infarction Social History Social History (Reviewed 0
[2021-09-08 14:49] LABS: Alanine Aminotransferase 20 U/L (6-50); Albumin Level 4.2 g/dL (3.5-5.1); Alkaline Phosphatase 66 U/L (38-126); Anion Gap 10 mmol/L (8-16); Aspartate Amino Transferase 27 U/L (17-59); Bilirubin,Total 1.4 mg/dL (0.2-1.3); Blood Urea Nitrogen 32 mg/dL (9-20); Calcium 8.8 mg/dL (8.4-10.2); Carbon Dioxide 20 mmol/L (22-30); Chloride 106 mmol/L (98-107); Estimated CRCL calculation 42 ml/min; Estimated Glomerular Filt Rate 40; Glucose 140 mg/dL (65-110); Potassium 3.7 mmol/L (3.4-5.0); Sodium 136 mmol/L (137-145)
[2021-09-08] MEDS: SODIUM CHLORIDE 0.9% IV 1,000 ML 125 ML IV CONT (15:28)
[2021-09-08] MEDS: ALPRAZolam (*CRX) 0.5 MG TABLET PO (16:37)
[2021-09-08] MEDS: ALBUTEROL SULFATE NEB 2.5 MG/0.5 ML INH (21:52)
[2021-09-09] VITALS (21 sets, daily range): BP systolic 88–109; BP diastolic 52–74; PULSE 43–75; RESP 16–24; TEMP 36.3–36.6; O2SAT 92–98
[2021-09-09] MEDS: ALBUTEROL SULFATE NEB 2.5 MG/3 ML INH (02:05)
[2021-09-09] MEDS: ALBUTEROL SULFATE NEB 2.5 MG/3 ML INH 0.63 MG INHALATION ×4 (02:05→21:35)
[2021-09-09] MEDS: IPRATROPIUM BR 0.02% INH SOLN 0.5 MG/2.5 ML VIAL INHALATION ×4 (02:06→21:35)
[2021-09-09 06:03] LABS: Basophils Absolute Auto 0.1 K/mm3 (0.0-0.1); Basophils Percent Auto 0.7 % (0.2-1.2); Eosinophils Absolute Auto 0.1 K/mm3 (0-0.3); Eosinophils Percent Auto 1.5 % (0-4.4); Hematocrit 48.2 % (42.0-52.0); Hemoglobin 16.1 g/dL (14.0-18.0); Immature Granulocyte Absolute 0.01 K/mm3 (0.00-0.031); Immature Granulocyte Percent A 0.1 % (0-0.5); Immature Platelet Fraction Pct 8.6 % (0.9-11.2); Lymphocytes Absolute Auto 2.11 K/mm3 (0.9-3.2); Lymphocytes Percent Auto 31.3 % (18.3-44.2); Mean Corpuscular HGB Conc 33.4 g/dl (32-36); Mean Corpuscular Hemoglobin 29.1 pg (26-34); Mean Corpuscular Volume 87.2 fl (80-100); Mean Platelet Volume 11.4 fl (7.4-10.4); Monocytes Absolute Auto 0.4 K/mm3 (0.1-0.6); Monocytes Percent Auto 6.4 % (2.6-8.5); Neutrophils Absolute Auto 4.1 K/mm3 (1.3-6.7); Platelet Count Result 144 k/mm3 (150-375); Red Blood Count 5.53 M/mm3 (4.6-6.20); White Blood Count 6.8 K/mm3 (4.5-10.0)
[2021-09-09 06:23] LABS: Alanine Aminotransferase 19 U/L (6-50); Albumin Level 3.8 g/dL (3.5-5.1); Alkaline Phosphatase 62 U/L (38-126); Anion Gap 12 mmol/L (8-16); Aspartate Amino Transferase 24 U/L (17-59); Bilirubin,Total 0.9 mg/dL (0.2-1.3); Blood Urea Nitrogen 32 mg/dL (9-20); Calcium 8.1 mg/dL (8.4-10.2); Carbon Dioxide 20 mmol/L (22-30); Chloride 104 mmol/L (98-107); Estimated CRCL calculation 45 ml/min; Estimated Glomerular Filt Rate 43; Glucose 88 mg/dL (65-110); Potassium 3.4 mmol/L (3.4-5.0); Sodium 136 mmol/L (137-145)
[2021-09-09] MEDS: UMECLIDINIUM BROMIDE 62.5 MCG ELLIPTA 1 PUFF INHALATION (08:23)
[2021-09-09] MEDS: ENOXAPARIN 40 MG/0.4 ML SYRINGE SUB-Q (08:23)
[2021-09-09] MEDS: ASPIRIN 81 MG CHEWABLE TABLET PO (08:24)
[2021-09-09] MEDS: ALPRAZolam (*CRX) 0.5 MG TABLET PO ×3 (08:24→16:29)
[2021-09-09] MEDS: ATORVASTATIN 40 MG TABLET 80 MG PO (08:24)
[2021-09-09] MEDS: CLOPIDOGREL BISULFATE 75 MG TABLET PO (08:24)
[2021-09-09] MEDS: EMPAGLIFLOZIN 10 MG TABLET PO (08:24)
[2021-09-09] MEDS: SPIRONOLACTONE 25 MG TABLET PO (08:24)
[2021-09-09] MEDS: busPIRone HCL 10 MG, busPIRone HCL 5 MG 15 MG PO ×2 (08:24→20:46)
--- NOTE | 2021-09-09 14:13 | PM.PNCARD ---
Progress Note: A&P Assessment and Plan (1) Acute on chronic combined systolic and diastolic CHF (congestive heart failure): Code(s): I50.43 - Acute on chronic combined systolic (congestive) and diastolic (congestive) heart failure Status: Acute Assessment and Plan: Patient has worsening shortness of breath, somewhat odd because of its episodic nature which can occur at rest. Mild volume overloaded on admission, with edema and an elevated BNP. Quickly resolved after receiving IV diuretic therapy. PE ruled out May have a component of anxiety However, he has some periods of sinus bradycardia and has frequent ventricularly paced beats (ICD is set to pace when HR < 40 BPM), competing with atrial beats since he has just a single lead ICD implanted. Perhaps the bradycardia and AV desynchrony is contributing. Also, the pt just resumed his carvedilol 1 week ago and his problems worsened a few days ago, so his bradycardia may be worse than previous. Continue decreased dose of carvedilol 6.25 mg BID and follow. HR generally in the 60's, fewer episodes of bradycardia/pacing. Hold if HR < 60. If this problem continues, he may need an upgrade to a dual chamber device, or an electrophysiology consultation. (2) Ischemic cardiomyopathy: Code(s): I25.5 - Ischemic cardiomyopathy Status: Acute Assessment and Plan: Longstanding severe ischemic cardiomyopathy, EF 20-25%. Currently taking carvedilol and lisinopril Try switching lisinopril to Entresto, although this is not affordable in the past. (Will try this when BP better.) Added spironolactone Added Farxiga Unlikely to benefit from an upgrade to a biventricular pacemaker since he has a right bundle branch block, not a left bundle branch block. Would be hesitant to use dobutamine or Milrinone because of his frequent ventricular ectopy. Currently all HF meds on hold due to hypotension (3) PVCs (premature ventricular contractions): Code(s): I49.3 - Ventricular premature depolarization Status: Acute Assessment and Plan: Patient has frequent PVCs, some brief nonsustained ventricular tachycardia, and occasional bigeminy. (4) Bradycardia: Code(s): R00.1 - Bradycardia, unspecified Status: Acute Assessment and Plan: Patient has exhibited a couple episodes of fairly abrupt but also fairly brief bradycardia during which he paces VVI rate 40. Has a single lead ICD; if he has frequent episodes of bradycardia and paces a lot we may need to consider an upgrade to a dual chamber device. Reduced carvedilol dose (5) Hypotension: Code(s): I95.9 - Hypotension, unspecified Status: Acute Assessment and Plan: BP 80-90's systolically. Holding spironolactone, lasix, entresto. Decreased coreg yesterday. BP somewhat improved this evening. (6) ROMIE (acute kidney injury): Code(s): N17.9 - Acute kidney failure, unspecified Status: Acute Assessment and Plan: BUN and creat rising Reduced/discontinued meds as above Small infusion IV fluids given yesterday, Cr slightly improved today (7) ICD (implantable cardioverter-defibrillator) in place: Code(s): Z95.810 - Presence of automatic (implantable) cardiac defibrillator Status: Acute Assessment and Plan: Implanted for primary prevention, no therapies delivered. (8) CAD (coronary artery disease): Code(s): I25.10 - Atherosclerotic heart disease of [place] coronary artery without angina pectoris Status: Acute Assessment and Plan: Extensive coronary history with CABG and interventions in the past. Flat troponins, minimally elevated No chest pain CAD is probably stable. Continue aspirin, Plavix and atorvastatin Patient does have anterolateral T-wave inversion however, unable to find any old EKGs in our system or [facility] for comparison. (9) MADHU (obstructive sleep apnea): Code(s): G47.33 - Obstructiv
--- NOTE | 2021-09-09 16:10 | P.PNIM_ITS ---
Progress Note: A&P Assessment and Plan (1) Acute exacerbation of CHF (congestive heart failure): Qualifiers: Heart failure type: unspecified Qualified Code(s): I50.9 - Heart failure, unspecified Code(s): I50.9 - Heart failure, unspecified Status: Acute Assessment and Plan: Patient was admitted for shortness of breath x several days. Troponins are minimally elevated and flat. He does endorse orthopnea, PND, and his family does observed apneic episodes. Denies lower extremity swelling. EKG shows bigeminy, RBBB, LPFB, and ST-T wave abnormalities in Leads V1-V3. Chest x-ray was read as mild pulmonary edema with cardiomegaly. 09/07/2021 echo shows severe LV enlargement, severe global LV systolic dysfunction, EF 20-25%. Grade 3/4 diastolic dysfunction. Mild left atrial enlargement. No prior echos to compare to. * Continue with Coreg as BP toelrates * He is off Lasix now * Further management per cardiology (2) CAD (coronary artery disease): Code(s): I25.10 - Atherosclerotic heart disease of [place] coronary artery without angina pectoris Status: Acute Assessment and Plan: Patient denies chest pain. Serial troponins minimally elevated but flat as noted above. Patient has a history of CABG and now s/p revision potentially in 2019. Patient was unsure if he takes aspirin and Plavix anymore at home. * Continue aspirin and plavix * Continue medical management (3) Ventricular bigeminy: Code(s): I49.8 - Other specified cardiac arrhythmias Status: Acute Assessment and Plan: Ventricular bigeminy seen upon admission. Patient is reportedly having runs of V-tach during his stay and may correlate with his symptomatic dyspnea. He does have a cardiac pacemaker defibrillator, and he states it has never gone off. TSH normal. * Continue to monitor, plan as above. * Appreciate Cardiology input (4) Sleep apnea: Code(s): G47.30 - Sleep apnea, unspecified Status: Acute Assessment and Plan: * Son reports several minutes on apneic episodes when patient in the ER. Patient has never been previously evaluated for sleep apnea. * ApneaLink on 2L showed AHI 25.4 and probably Valeriano Brar respirations with 112 apneic episodes. * Pulmonology following (5) Hyperventilation: Code(s): R06.4 - Hyperventilation Status: Acute Assessment and Plan: * Patient has been noted to have panic like episodes with hyperventilation. Oxygen saturations remain in the high 90s during these episodes * VQ ruled out PE. Venous doppler negative. * Patient was started on Buspar and Xanax added. * Symptoms better today. Follow (6) COPD (chronic obstructive pulmonary disease): Code(s): J44.9 - Chronic obstructive pulmonary disease, unspecified Status: Acute Assessment and Plan: Patient does not require supplemental oxygen at home. * Medications changed to Incruse * He remains on Albuterol and Atrovent nebs and feels these are helping him * Currently has venturi mask that he uses intermittently * Appreciate pulmonary input (7) HTN (hypertension), malignant: Code(s): I10 - Essential (primary) hypertension Status: Acute Assessment and Plan: * Patient with episode of HoTN related to over-diuresis. Aldactone held. Entresto stopped. Remains on Coreg but held. Continue Coreg with parameters. (8) Hyperlipidemia: Code(s): E78.5 - Hyperlipidemia, unspecified Status: Acute Assessment and Plan: * LFTs normal * Continu
--- NOTE | 2021-09-09 16:10 | PM.IMPN ---
Progress Note: A&P Assessment and Plan (1) Acute exacerbation of CHF (congestive heart failure): Qualifiers: Heart failure type: unspecified Qualified Code(s): I50.9 - Heart failure, unspecified Code(s): I50.9 - Heart failure, unspecified Status: Acute Assessment and Plan: Patient was admitted for shortness of breath x several days. Troponins are minimally elevated and flat. He does endorse orthopnea, PND, and his family does observed apneic episodes. Denies lower extremity swelling. EKG shows bigeminy, RBBB, LPFB, and ST-T wave abnormalities in Leads V1-V3. Chest x-ray was read as mild pulmonary edema with cardiomegaly. 09/07/2021 echo shows severe LV enlargement, severe global LV systolic dysfunction, EF 20-25%. Grade 3/4 diastolic dysfunction. Mild left atrial enlargement. No prior echos to compare to. Continue with Coreg as BP toelrates He is off Lasix now Further management per cardiology (2) CAD (coronary artery disease): Code(s): I25.10 - Atherosclerotic heart disease of [place] coronary artery without angina pectoris Status: Acute Assessment and Plan: Patient denies chest pain. Serial troponins minimally elevated but flat as noted above. Patient has a history of CABG and now s/p revision potentially in 2019. Patient was unsure if he takes aspirin and Plavix anymore at home. Continue aspirin and plavix Continue medical management (3) Ventricular bigeminy: Code(s): I49.8 - Other specified cardiac arrhythmias Status: Acute Assessment and Plan: Ventricular bigeminy seen upon admission. Patient is reportedly having runs of V-tach during his stay and may correlate with his symptomatic dyspnea. He does have a cardiac pacemaker defibrillator, and he states it has never gone off. TSH normal. Continue to monitor, plan as above. Appreciate Cardiology input (4) Sleep apnea: Code(s): G47.30 - Sleep apnea, unspecified Status: Acute Assessment and Plan: Son reports several minutes on apneic episodes when patient in the ER. Patient has never been previously evaluated for sleep apnea. ApneaLink on 2L showed AHI 25.4 and probably Valeriano Brar respirations with 112 apneic episodes. Pulmonology following (5) Hyperventilation: Code(s): R06.4 - Hyperventilation Status: Acute Assessment and Plan: Patient has been noted to have panic like episodes with hyperventilation. Oxygen saturations remain in the high 90s during these episodes VQ ruled out PE. Venous doppler negative. Patient was started on Buspar and Xanax added. Symptoms better today. Follow (6) COPD (chronic obstructive pulmonary disease): Code(s): J44.9 - Chronic obstructive pulmonary disease, unspecified Status: Acute Assessment and Plan: Patient does not require supplemental oxygen at home. Medications changed to Incruse He remains on Albuterol and Atrovent nebs and feels these are helping him Currently has venturi mask that he uses intermittently Appreciate pulmonary input (7) HTN (hypertension), malignant: Code(s): I10 - Essential (primary) hypertension Status: Acute Assessment and Plan: Patient with episode of HoTN related to over-diuresis. Aldactone held. Entresto stopped. Remains on Coreg but held. Continue Coreg with parameters. (8) Hyperlipidemia: Code(s): E78.5 - Hyperlipidemia, unspecified Status: Acute Assessment and Plan: LFTs normal Continue with atorvastatin. Subjective Date/time seen: 09/09/21 16:10 Interval history: 71yo male with hx of COPD, HTN, CAD with HI and CABG, CHF, and cardiac defibrillator in-situ who presents with worsening shortness of breath over the last several days from self reported oxygen saturations in the 80s at home. Cough this morning. He did sleep well last night. Sill episodes of shortness of breath but family f
[2021-09-09] MEDS: POTASSIUM CHLORIDE 20 MEQ TABLET 40 MEQ PO (17:35)
[2021-09-09] MEDS: carvediloL 6.25 MG TABLET PO (22:07)
--- NOTE | 2021-09-09 22:17 | PC.NURSE ---
DISCUSSED VITAL SIGNS AND COREG WITH HAYLEY BAEZ NP, ORDER TO GIVE COREG DOSE TONIGHT
[2021-09-10] VITALS (18 sets, daily range): BP systolic 93–129; BP diastolic 45–99; PULSE 51–78; RESP 18–22; TEMP 35.8–36.6; O2SAT 95–100
[2021-09-10] MEDS: ALBUTEROL SULFATE NEB 2.5 MG/3 ML INH 0.63 MG INHALATION ×4 (02:29→21:10)
[2021-09-10] MEDS: IPRATROPIUM BR 0.02% INH SOLN 0.5 MG/2.5 ML VIAL INHALATION ×4 (02:30→21:07)
[2021-09-10 06:38] LABS: Hematocrit 48.9 % (42.0-52.0); Hemoglobin 16.3 g/dL (14.0-18.0); Mean Corpuscular HGB Conc 33.3 g/dl (32-36); Mean Corpuscular Hemoglobin 29.3 pg (26-34); Mean Corpuscular Volume 87.9 fl (80-100); Mean Platelet Volume 11.9 fl (7.4-10.4); Platelet Count Result 169 k/mm3 (150-375); Red Blood Count 5.56 M/mm3 (4.6-6.20); Red Cell Distribution Width 12.9 % (11.5-14.5); White Blood Count 6.4 K/mm3 (4.5-10.0)
[2021-09-10 06:49] LABS: Albumin Level 3.7 g/dL (3.5-5.1); Anion Gap 9 mmol/L (8-16); Blood Urea Nitrogen 27 mg/dL (9-20); Calcium 8.3 mg/dL (8.4-10.2); Carbon Dioxide 21 mmol/L (22-30); Chloride 108 mmol/L (98-107); Estimated CRCL calculation 55 ml/min; Estimated Glomerular Filt Rate 54; Glucose 93 mg/dL (65-110); Magnesium 2.2 mg/dL (1.6-2.3); Phosphorus 3.8 mg/dL (2.5-4.5); Potassium 4.1 mmol/L (3.4-5.0); Sodium 138 mmol/L (137-145)
[2021-09-10] MEDS: UMECLIDINIUM BROMIDE 62.5 MCG ELLIPTA 1 PUFF INHALATION (08:00)
[2021-09-10] MEDS: ENOXAPARIN 40 MG/0.4 ML SYRINGE SUB-Q (08:47)
[2021-09-10] MEDS: busPIRone HCL 10 MG, busPIRone HCL 5 MG 15 MG PO ×2 (08:49→21:15)
[2021-09-10] MEDS: carvediloL 6.25 MG TABLET PO ×2 (08:49→21:15)
[2021-09-10] MEDS: CLOPIDOGREL BISULFATE 75 MG TABLET PO (08:49)
[2021-09-10] MEDS: ASPIRIN 81 MG CHEWABLE TABLET PO (08:49)
[2021-09-10] MEDS: ALPRAZolam (*CRX) 0.5 MG TABLET PO ×3 (08:49→16:58)
[2021-09-10] MEDS: ATORVASTATIN 40 MG TABLET 80 MG PO (08:49)
[2021-09-10] MEDS: EMPAGLIFLOZIN 10 MG TABLET PO (08:50)
--- NOTE | 2021-09-10 10:05 | PM.PNCARD ---
Progress Note: A&P Assessment and Plan (1) Acute on chronic combined systolic and diastolic CHF (congestive heart failure): Code(s): I50.43 - Acute on chronic combined systolic (congestive) and diastolic (congestive) heart failure Status: Acute Assessment and Plan: Patient has worsening shortness of breath, somewhat odd because of its episodic nature which can occur at rest. Mild volume overloaded on admission, with edema and an elevated BNP. Quickly resolved after receiving IV diuretic therapy. PE ruled out May have a component of anxiety However, he has some periods of sinus bradycardia and has frequent ventricularly paced beats (ICD is set to pace when HR < 40 BPM), competing with atrial beats since he has just a single lead ICD implanted. Perhaps the bradycardia and AV desynchrony is contributing. Also, the pt just resumed his carvedilol 1 week ago and his problems worsened a few days ago, so his bradycardia may be worse than previous. Continue decreased dose of carvedilol 6.25 mg BID and follow. HR generally in the 60's, fewer episodes of bradycardia/pacing. Hold if HR < 60. If this problem continues, he may need an upgrade to a dual chamber device, or an electrophysiology consultation. (2) Ischemic cardiomyopathy: Code(s): I25.5 - Ischemic cardiomyopathy Status: Acute Assessment and Plan: Longstanding severe ischemic cardiomyopathy, EF 20-25%. Currently taking carvedilol and lisinopril Try switching lisinopril to Entresto when BP improves, although was not affordable in the past. Added spironolactone Added Farxiga Unlikely to benefit from an upgrade to a biventricular pacemaker since he has a right bundle branch block, not a left bundle branch block. Would be hesitant to use dobutamine or Milrinone because of his frequent ventricular ectopy. Currently all HF meds on hold due to hypotension... (3) PVCs (premature ventricular contractions): Code(s): I49.3 - Ventricular premature depolarization Status: Acute Assessment and Plan: Patient has frequent PVCs, some brief nonsustained ventricular tachycardia, and occasional bigeminy. (4) Bradycardia: Code(s): R00.1 - Bradycardia, unspecified Status: Acute Assessment and Plan: Patient has exhibited a couple episodes of fairly abrupt but also fairly brief bradycardia during which he paces VVI rate 40. Has a single lead ICD; if he has frequent episodes of bradycardia and paces a lot we may need to consider an upgrade to a dual chamber device. Reduced carvedilol dose (5) Hypotension: Code(s): I95.9 - Hypotension, unspecified Status: Acute Assessment and Plan: BP 80-90's systolically. Holding spironolactone, lasix, entresto. Decreased coreg 09/08. BP is somewhat improved. (6) ROMIE (acute kidney injury): Code(s): N17.9 - Acute kidney failure, unspecified Status: Acute Assessment and Plan: BUN and creat rising Reduced/discontinued meds as above Small infusion IV fluids given yesterday, Cr improved (7) ICD (implantable cardioverter-defibrillator) in place: Code(s): Z95.810 - Presence of automatic (implantable) cardiac defibrillator Status: Acute Assessment and Plan: Implanted for primary prevention, no therapies delivered. (8) CAD (coronary artery disease): Code(s): I25.10 - Atherosclerotic heart disease of [place] coronary artery without angina pectoris Status: Acute Assessment and Plan: Extensive coronary history with CABG and interventions in the past. Flat troponins, minimally elevated No chest pain CAD is probably stable. Continue aspirin, Plavix and atorvastatin Patient does have anterolateral T-wave inversion however, unable to find any old EKGs in our system or [facility] for comparison. (9) MADHU (obstructive sleep apnea): Code(s): G47.33 - Obstructive sleep apnea (adult) (pediatric) Status: A
--- NOTE | 2021-09-10 13:19 | P.PNIM_ITS ---
Progress Note: A&P Assessment and Plan (1) Acute exacerbation of CHF (congestive heart failure): Qualifiers: Heart failure type: unspecified Qualified Code(s): I50.9 - Heart failure, unspecified Code(s): I50.9 - Heart failure, unspecified Status: Acute Assessment and Plan: Patient was admitted for shortness of breath x several days prior to admission. Troponins are minimally elevated but flat. EKG shows bigeminy, RBBB, LPFB, and ST-T wave abnormalities in Leads V1-V3. CXR showing mild pulmonary edema with cardiomegaly. Echo shows severe LV enlargement, severe global LV systolic dysfunction, EF 20-25%, Grade 3/4 diastolic dysfunction, and mild LAE. He was treated with IV lasix but held due to soft BP. Having episodes of SOB with panting. Repeat CXR clear. Pulm perfusion scan showing no PE and venous doppler negative for DVT. Symptoms better. As below. (2) Hyperventilation: Code(s): R06.4 - Hyperventilation Status: Acute Assessment and Plan: Patient has been noted to have panic like episodes with hyperventilation. Oxygen saturations remain in the high 90s during these episodes. VQ ruled out PE. Venous doppler negative. Suspect component of anxiety and patient was started on Buspar and Xanax. He did recently resume his Coreg 25mg bid and is having some periods of sinus bradycardia with frequent ventricularly paced beats (ICD paced at HR<40bpm) that is competing with atrial beats since he has just a single lead ICD implanted. Perhaps the bradycardia and AV desynchrony is contributing to his symptoms. Coreg dose cut back so may also be helping his symptoms. * Continue Buspar and Xanax * Symptoms better today. * Start PT/OT. Out of bed. * Care coordination consult for discharge planning for possible SNF placement (3) CAD (coronary artery disease): Code(s): I25.10 - Atherosclerotic heart disease of [place] coronary artery without angina pectoris Status: Acute Assessment and Plan: Patient denies chest pain. Serial troponins minimally elevated but flat as not ed above. Patient has a history of CABG and now s/p revision potentially in 2019. Patient was unsure if he takes aspirin and Plavix anymore at home. Aspirin and Plavix resumed here. Coreg dose has been decreased and appears to be tolerating this. Continue Lipitor. Continue medical management (4) Ventricular bigeminy: Code(s): I49.8 - Other specified cardiac arrhythmias Status: Acute Assessment and Plan: Ventricular bigeminy seen upon admission. Patient is reportedly having runs of V-tach during his stay and may correlate with his symptomatic dyspnea. He does have a cardiac pacemaker defibrillator, and he states it has never gone off. T SH normal. Continue to monitor, plan as above. Appreciate Cardiology input (5) Sleep apnea: Code(s): G47.30 - Sleep apnea, unspecified Status: Acute Assessment and Plan: * Son reports several minutes on apneic episodes when patient in the ER. Sesar mills has never been previously evaluated for sleep apnea. * ApneaLink on 2L showed AHI 25.4 and probably Valeriano Brar respirations with 112 apneic episodes. * Pulmonology following and appreciate their input (6) COPD (chronic obstructive pulmonary disease): Code(s): J44.9 - Chronic obstructive pulmonary disease, unspecified Status: Acute Assessment and Plan: Patient does not require supplemental oxygen at home. * Medications changed to Incruse * He remains on Albuterol and Atrovent nebs and feels these are helping him * Appreciate pulmonary input
[2021-09-11] VITALS (23 sets, daily range): BP systolic 103–127; BP diastolic 59–79; PULSE 57–78; RESP 16–18; TEMP 36.1–36.7; O2SAT 90–100
--- NOTE | 2021-09-11 05:14 | PC.NURSE ---
called respiratory pt requesting his breathing treatment.
[2021-09-11] MEDS: IPRATROPIUM BR 0.02% INH SOLN 0.5 MG/2.5 ML VIAL INHALATION ×4 (05:32→20:54)
[2021-09-11] MEDS: ALBUTEROL SULFATE NEB 2.5 MG/3 ML INH 0.63 MG INHALATION ×4 (05:32→20:54)
[2021-09-11] MEDS: UMECLIDINIUM BROMIDE 62.5 MCG ELLIPTA 1 PUFF INHALATION (08:13)
[2021-09-11] MEDS: busPIRone HCL 10 MG, busPIRone HCL 5 MG 15 MG PO ×2 (08:14→20:31)
[2021-09-11] MEDS: ENOXAPARIN 40 MG/0.4 ML SYRINGE SUB-Q (08:14)
[2021-09-11] MEDS: CLOPIDOGREL BISULFATE 75 MG TABLET PO (08:14)
[2021-09-11] MEDS: ATORVASTATIN 40 MG TABLET 80 MG PO (08:14)
[2021-09-11] MEDS: carvediloL 6.25 MG TABLET PO ×2 (08:14→20:30)
[2021-09-11] MEDS: EMPAGLIFLOZIN 10 MG TABLET PO (08:15)
[2021-09-11] MEDS: ASPIRIN 81 MG CHEWABLE TABLET PO (08:15)
[2021-09-11] MEDS: ALPRAZolam (*CRX) 0.5 MG TABLET PO ×3 (08:15→16:19)
--- NOTE | 2021-09-11 11:54 | PCOTNOTE ---
OT treatment not completed this date x3 attempts due to patient sleeping soundly. ECT handouts left for pending review.
--- NOTE | 2021-09-11 12:32 | PM.PNCARD ---
Progress Note: A&P Additional Plan 71-year-old man with: Relatively severe ischemic cardiomyopathy who is in a state of decompensation. He is not really not very volume overloaded at this point. Going to resume his lisinopril at a modest dose and observe his a blood pressure carefully. Long discussion with the family about the concept of reduction of his beta-keegan dose so he does not pace in the ventricle as much. They understand this but are skeptical of the contribution this made because they point out that he was not pacing at the time he was having spells of severe shortness of breath. Rhett Farmer MD [facility] Subjective Date/time seen: Date of service: 09/11/21 12:32 Interval history: FU SOB, CHF, Longstanding cardiomyopathy, EF 25-30%, PVCs. 09/08/2021: Check a D-Dimer, cont tx CHF Date of service 09/09/2021: D-Dimer was high, but VQ scan neg for PE and LE doppler neg for DVT. Still feeling SOB, sometimes episodic for 5 minutes. There is concern some of this may be 2nd anxiety; trying hydroxyzine and also albuterol nebs to see if any better. Son reports pt was off all heart meds, nebs for a month; just resumed 1 week ago and seems worse since then. Telemetry shows sinus rate dropping at times then ICD paces a few beats; set for 40 BPM. However since there is no atrial lead this is desynchronous with atrial contractions. Also occ to frequent PVCs, couplets, triplets, up to 5 beats VT. Date of service 09/09/2021: Continues to feel short of breath with episodes significant dyspnea from time to time. Somewhat lethargic today. Remains hypotensive. Telemetry shows sinus rhythm rate improved since coreg decreased, predominantly in the 60s. Still has frequent PVCs. He denies any palpitations or chest pain. Date of service 09/10/2021: No acute events overnight. He reports that his breathing is slightly improved. He is fatigued. Date of service 09/11/2021: Patient visiting family members does not appear to be in any distress this morning. Did note that with getting up with a therapist he was short of breath just ambulating in the room. Long discussion with the patient and the family about resuming vasodilators. He is no longer hypotensive. He mentioned several times that Entresto was not affordable for him. He was on lisinopril at 20 mg per day. Plan to resume that at a lower dose today Exam Narrative: Const: General: comfortable, no acute distress and uncomfortable; No confusion Orientation/consciousness: No confusion HENMT: General nose exam: no epistaxis Mouth: Yes moist mucous membranes Eyes: EOM: EOMs intact bilaterally Neck: Neck: supple and no JVD Thyroid: thyroid normal Carotids: no bruits Lymphatic: lymphadenopathy not noted Resp: Effort & Inspection: normal respiratory effort Auscultation: clear to auscultation bilaterally Other: Had an episode of acute dyspnea while laying 45? in bed. Resolved with sitting up on the edge of the bed. Cardio: Rate: regular rate Rhythm: regular rhythm Heart sounds: no gallops and no murmurs Other: Pedal pulses not palpable but feet are warm and not discolored GI: Inspection: non-distended Skin: General skin exam: normal color and no rashes or lesions noted Neuro: General: No confusion Cognition (Neuro): normal cognition Speech: normal speech and No Abnormal speech present Extrem: General: no edema and no pedal edema Psych: Mental Status: mental status grossly normal Affect: normal affect and Anxious affect present Objective Data Vital Signs Vital Signs: Vital Signs - 24 hr 09/10/21 13:44 09/10/21 13:52 09/10/21 14:00 Temperature 36.4 C Pulse Rate 68 Pulse Rate [At Rest Prior to Therapy Session] Respiratory Rate 18 20 18 Blood Pressure 112/65 Pulse Oximetry 100 Pulse Oximetry [At Rest Prior to Therapy Session] 09/10/21 16:00 09/10/21 20:00 09/10/21 21:06 Temperature 35.8 C L Pulse Rate 66 64 63 Pulse Rate [At
[2021-09-11] MEDS: lisinopriL 5 MG TABLET PO (12:57)
--- NOTE | 2021-09-11 15:28 | PM.IMPN ---
Progress Note: A&P Assessment and Plan (1) Acute exacerbation of CHF (congestive heart failure): Qualifiers: Heart failure type: unspecified Qualified Code(s): I50.9 - Heart failure, unspecified Code(s): I50.9 - Heart failure, unspecified Status: Acute Assessment and Plan: Patient was admitted for shortness of breath x several days prior to admission. Troponins are minimally elevated but flat. EKG shows bigeminy, RBBB, LPFB, and ST-T wave abnormalities in Leads V1-V3. CXR showing mild pulmonary edema with cardiomegaly. Echo shows severe LV enlargement, severe global LV systolic dysfunction, EF 20-25%, Grade 3/4 diastolic dysfunction, and mild LAE. He was treated with IV lasix but held due to soft BP. Having episodes of SOB with panting. Repeat CXR clear. Pulm perfusion scan showing no PE and venous doppler negative for DVT. Symptoms better. As below. (2) Hyperventilation: Code(s): R06.4 - Hyperventilation Status: Acute Assessment and Plan: Patient has been noted to have panic like episodes with hyperventilation. Oxygen saturations remain in the high 90s during these episodes. VQ ruled out PE. Venous doppler negative. Suspect component of anxiety and patient was started on Buspar and Xanax. He did recently resume his Coreg 25mg bid and is having some periods of sinus bradycardia with frequent ventricularly paced beats (ICD paced at HR<40bpm) that is competing with atrial beats since he has just a single lead ICD implanted. Perhaps the bradycardia and AV desynchrony is contributing to his symptoms. Coreg dose cut back so may also be helping his symptoms. Continue Buspar and Xanax Symptoms better today. Start PT/OT. Out of bed. Care coordination consult for discharge planning for possible SNF placement (3) CAD (coronary artery disease): Code(s): I25.10 - Atherosclerotic heart disease of [place] coronary artery without angina pectoris Status: Acute Assessment and Plan: Patient denies chest pain. Serial troponins minimally elevated but flat as noted above. Patient has a history of CABG and now s/p revision potentially in 2019. Patient was unsure if he takes aspirin and Plavix anymore at home. Aspirin and Plavix resumed here. Coreg dose has been decreased and appears to be tolerating this. Continue Lipitor. Continue medical management (4) Ventricular bigeminy: Code(s): I49.8 - Other specified cardiac arrhythmias Status: Acute Assessment and Plan: Ventricular bigeminy seen upon admission. Patient is reportedly having runs of V-tach during his stay and may correlate with his symptomatic dyspnea. He does have a cardiac pacemaker defibrillator, and he states it has never gone off. TSH normal. Continue to monitor, plan as above. Appreciate Cardiology input (5) Sleep apnea: Code(s): G47.30 - Sleep apnea, unspecified Status: Acute Assessment and Plan: Son reports several minutes on apneic episodes when patient in the ER. Patient has never been previously evaluated for sleep apnea. ApneaLink on 2L showed AHI 25.4 and probably Valeriano Brar respirations with 112 apneic episodes. Pulmonology following and appreciate their input (6) COPD (chronic obstructive pulmonary disease): Code(s): J44.9 - Chronic obstructive pulmonary disease, unspecified Status: Acute Assessment and Plan: Patient does not require supplemental oxygen at home. Medications changed to Incruse He remains on Albuterol and Atrovent nebs and feels these are helping him Appreciate pulmonary input (7) Hyperlipidemia: Code(s): E78.5 - Hyperlipidemia, unspecified Status: Acute Assessment and Plan: LFTs normal Continue with atorvastatin. (8) HTN (hypertension), benign: Code(s): I10 - Essential (primary) hypertension Status: Acute Assessment and Plan: Patient with episode of HoTN re
[2021-09-12] VITALS (21 sets, daily range): BP systolic 95–116; BP diastolic 45–65; PULSE 58–80; RESP 14–20; TEMP 36.1–36.4; O2SAT 98–100
[2021-09-12] MEDS: ALBUTEROL SULFATE NEB 2.5 MG/3 ML INH 0.63 MG INHALATION ×4 (02:52→19:39)
[2021-09-12] MEDS: IPRATROPIUM BR 0.02% INH SOLN 0.5 MG/2.5 ML VIAL INHALATION ×4 (02:52→19:39)
[2021-09-12] MEDS: UMECLIDINIUM BROMIDE 62.5 MCG ELLIPTA 1 PUFF INHALATION (07:50)
[2021-09-12] MEDS: ENOXAPARIN 40 MG/0.4 ML SYRINGE SUB-Q (08:33)
[2021-09-12] MEDS: ATORVASTATIN 40 MG TABLET 80 MG PO (08:33)
[2021-09-12] MEDS: CLOPIDOGREL BISULFATE 75 MG TABLET PO (08:34)
[2021-09-12] MEDS: carvediloL 6.25 MG TABLET PO ×2 (08:34→20:15)
[2021-09-12] MEDS: lisinopriL 5 MG TABLET PO (08:35)
[2021-09-12] MEDS: ASPIRIN 81 MG CHEWABLE TABLET PO (08:35)
[2021-09-12] MEDS: EMPAGLIFLOZIN 10 MG TABLET PO (08:35)
[2021-09-12 09:00] LABS: Anion Gap 9 mmol/L (8-16); Blood Urea Nitrogen 20 mg/dL (9-20); Calcium 8.2 mg/dL (8.4-10.2); Carbon Dioxide 22 mmol/L (22-30); Chloride 105 mmol/L (98-107); Estimated CRCL calculation 55 ml/min; Estimated Glomerular Filt Rate 54; Glucose 93 mg/dL (65-110); Magnesium 2.4 mg/dL (1.6-2.3); Potassium 4.2 mmol/L (3.4-5.0); Sodium 136 mmol/L (137-145)
[2021-09-12] MEDS: busPIRone HCL 10 MG, busPIRone HCL 5 MG 15 MG PO ×2 (09:07→20:15)
--- NOTE | 2021-09-12 11:41 | PM.PNPUL ---
Progress Note: A&P Additional Plan Assessment and plan (1) Acute on chronic combined systolic and diastolic CHF (congestive heart failure): Code(s): I50.43 - Acute on chronic combined systolic (congestive) and diastolic (congestive) heart failure Status: Acute Assessment and Plan: This 71-year-old man has history of congestive heart failure, coronary artery disease with previous MIs, presented with increasing shortness of breath related to exacerbation of his congestive heart failure. The patient is currently on treatment for his cardiac disease. He has history of COPD for which he has been on maintenance [place] bronchodilator for the last 2 years. there was no evidence of COPD exacerbation at this point. No previous pulmonary function testing are available. The patient was found to have evidence of sleep disordered breathing on ApneaLink while on supplemental oxygen 2 liters/minute. However, there was no significant oxyhemoglobin desaturation on oxygen 2 liters/minute. The patient will require a sleep study as outpatient as he may have sleep apnea. He will probably need supplemental oxygen 2 liters/minute while waiting for sleep apnea. patient will need to return to pulmonary clinic for evaluation for COPD and sleep apnea. Plan: I would repeat ApneaLink study on room air tonight as the patient was in acute exacerbation of congestive heart failure when studied with ApneaLink and may no longer has nocturnal hypoxemia. Code(s): J44.9 - Chronic obstructive pulmonary disease, unspecified Status: Acute (3) Nocturnal hypoxemia: Code(s): G47.34 - Idiopathic sleep related nonobstructive alveolar hypoventilation Status: Acu Subjective Date/time seen: 09/12/21 11:41 Patient's respiratory status significantly improved. He has no new respiratory symptoms. He still on supplemental oxygen. Review of Systems Review of Systems: All systems reviewed & are unremarkable except as noted in HPI and below Exam Narrative: GENERAL APPEARANCE: Well developed, well nourished, alert and cooperative, and appears to be in no acute distress While on supplemental oxygen via nasal cannula SKIN: Inspection of the skin reveals no rashes, ulcerations or petechiae. HEENT: Sclerae anicteric and conjunctivae pink and moist. Extraocular movements were intact and pupils were equal. NECK: Supple. There was no thyroid enlargement, and no tenderness, or masses were felt. CHEST: Normal AP diameter and normal contour without any kyphoscoliosis. LUNGS: Auscultation of the lungs revealed distant breath sounds bilaterally no wheezing. CARDIAC: There was a regular rate and rhythm without any murmurs, gallops, rubs. ABDOMEN: Soft and nontender with normal bowel sounds. There was no organomegaly. LYMPH NODES: No lymphadenopathy was appreciated in the neck. EXTREMITIES: No cyanosis, clubbing or edema. NEUROLOGIC: Alert and oriented x 3. Normal affect. Objective Data Vital Signs Vital Signs: Vital Signs - 24 hr 09/11/21 12:00 09/11/21 13:58 09/11/21 14:09 Temperature Pulse Rate 78 60 63 Respiratory Rate 18 18 Blood Pressure Pulse Oximetry 09/11/21 14:17 09/11/21 16:00 09/11/21 20:00 Temperature 36.7 C Pulse Rate 64 59 L 64 Respiratory Rate 16 Blood Pressure 103/79 Pulse Oximetry 100 09/11/21 20:30 09/11/21 20:55 09/11/21 21:00 Temperature Pulse Rate 77 71 Respiratory Rate 18 Blood Pressure Pulse Oximetry 95 09/11/21 21:05 09/11/21 22:56 09/12/21 00:00 Temperature 36.4 C Pulse Rate 70 70 72 Respiratory Rate 18 16 Blood Pressure 118/59 L Pulse Oximetry 97 09/12/21 00:18 09/12/21 02:52 09/12/21 03:04 Temperature Pulse Rate 60 67 69 Respiratory Rate 18 18 Blood Pressure Pulse Oximetry 09/12/21 04:00 09/12/21 06:17 09/12/21 07:45 Temperature 36.1 C L Pulse Rate 63 68 66 Respiratory Rate 14 18 Blood Pressure 95/65 L Pulse Oximetry 98 05
--- NOTE | 2021-09-12 11:42 | PM.PNCARD ---
Progress Note: A&P Additional Plan 71-year-old man with: Congestive heart failure significant LV systolic dysfunction. Patient is being placed back on basal dilator treatment. Lisinopril is being used because he could not afford Entresto in the past. So far tolerating 5 mg daily without problematic/symptomatic hypotension. Continue lower dose of carvedilol as mentioned in previous notes so that he does less ventricular pacing. Patient still is rather weak and deconditioned. Will not recommend any advancement in his heart failure medication today with systolic blood pressure in the mid 90s. Rhett Farmer MD [facility] Subjective Date/time seen: Date of service: 09/12/21 11:42 Interval history: FU SOB, CHF, Longstanding cardiomyopathy, EF 25-30%, PVCs. 09/08/2021: Check a D-Dimer, cont tx CHF Date of service 09/09/2021: D-Dimer was high, but VQ scan neg for PE and LE doppler neg for DVT. Still feeling SOB, sometimes episodic for 5 minutes. There is concern some of this may be 2nd anxiety; trying hydroxyzine and also albuterol nebs to see if any better. Son reports pt was off all heart meds, nebs for a month; just resumed 1 week ago and seems worse since then. Telemetry shows sinus rate dropping at times then ICD paces a few beats; set for 40 BPM. However since there is no atrial lead this is desynchronous with atrial contractions. Also occ to frequent PVCs, couplets, triplets, up to 5 beats VT. Date of service 09/09/2021: Continues to feel short of breath with episodes significant dyspnea from time to time. Somewhat lethargic today. Remains hypotensive. Telemetry shows sinus rhythm rate improved since coreg decreased, predominantly in the 60s. Still has frequent PVCs. He denies any palpitations or chest pain. Date of service 09/10/2021: No acute events overnight. He reports that his breathing is slightly improved. He is fatigued. Date of service 09/11/2021: Patient visiting family members does not appear to be in any distress this morning. Did note that with getting up with a therapist he was short of breath just ambulating in the room. Long discussion with the patient and the family about resuming vasodilators. He is no longer hypotensive. He mentioned several times that Entresto was not affordable for him. He was on lisinopril at 20 mg per day. Plan to resume that at a lower dose today Date of service 09/12/2021: Patient feels and looks better today. Stop receiving Xanax and is more alert following that. He was a loose typical stand up in the room and ambulate to the bathroom a couple of times. Seems to be tolerating low-dose of lisinopril which was resumed yesterday. Systolic blood pressure in the mid 90s. Exam Narrative: Const: General: comfortable, no acute distress and uncomfortable; No confusion Orientation/consciousness: No confusion HENMT: General nose exam: no epistaxis Mouth: Yes moist mucous membranes Eyes: EOM: EOMs intact bilaterally Neck: Neck: supple and no JVD Thyroid: thyroid normal Carotids: no bruits Lymphatic: lymphadenopathy not noted Resp: Effort & Inspection: normal respiratory effort Auscultation: clear to auscultation bilaterally Other: Had an episode of acute dyspnea while laying 45? in bed. Resolved with sitting up on the edge of the bed. Cardio: Rate: regular rate Rhythm: regular rhythm Heart sounds: no gallops and no murmurs Other: Pedal pulses not palpable but feet are warm and not discolored GI: Inspection: non-distended Skin: General skin exam: normal color and no rashes or lesions noted Neuro: General: No confusion Cognition (Neuro): normal cognition Speech: normal speech and No Abnormal speech present Extrem: General: no edema and no pedal edema Psych: Mental Status: mental status grossly normal Affect: normal affect and Anxious affect present Objective Data Vital Signs Vital Signs: Vital Signs - 24 hr 09/11/21 12:00 09/11/21 13:58 09/11/21
[2021-09-13] VITALS (14 sets, daily range): BP systolic 90–105; BP diastolic 55–68; PULSE 57–90; RESP 16–20; TEMP 36.3–36.6; O2SAT 84–100
[2021-09-13 06:22] LABS: Hemoglobin 16.2 g/dL (14.0-18.0); Mean Corpuscular HGB Conc 32.4 g/dl (32-36); Mean Corpuscular Hemoglobin 29.1 pg (26-34); Mean Corpuscular Volume 89.9 fl (80-100); Mean Platelet Volume 11.3 fl (7.4-10.4); Platelet Count Result 145 k/mm3 (150-375); Red Blood Count 5.56 M/mm3 (4.6-6.20); Red Cell Distribution Width 12.7 % (11.5-14.5); White Blood Count 5.4 K/mm3 (4.5-10.0)
[2021-09-13 06:32] LABS: Anion Gap 8 mmol/L (8-16); Blood Urea Nitrogen 20 mg/dL (9-20); Calcium 8.1 mg/dL (8.4-10.2); Carbon Dioxide 20 mmol/L (22-30); Chloride 109 mmol/L (98-107); Estimated CRCL calculation 55 ml/min; Estimated Glomerular Filt Rate 54; Glucose 96 mg/dL (65-110); Potassium 3.8 mmol/L (3.4-5.0); Sodium 137 mmol/L (137-145)
[2021-09-13] MEDS: UMECLIDINIUM BROMIDE 62.5 MCG ELLIPTA 1 PUFF INHALATION (08:24)
[2021-09-13] MEDS: CLOPIDOGREL BISULFATE 75 MG TABLET PO (08:34)
[2021-09-13] MEDS: lisinopriL 5 MG TABLET PO (08:34)
[2021-09-13] MEDS: EMPAGLIFLOZIN 10 MG TABLET PO (08:34)
[2021-09-13] MEDS: ENOXAPARIN 40 MG/0.4 ML SYRINGE SUB-Q (08:34)
[2021-09-13] MEDS: busPIRone HCL 10 MG, busPIRone HCL 5 MG 15 MG PO (08:34)
[2021-09-13] MEDS: ATORVASTATIN 40 MG TABLET 80 MG PO (08:34)
[2021-09-13] MEDS: ASPIRIN 81 MG CHEWABLE TABLET PO (08:35)
[2021-09-13] MEDS: carvediloL 6.25 MG TABLET PO (08:35)
--- NOTE | 2021-09-13 09:34 | PM.PNCARD ---
Progress Note: A&P Assessment and Plan (1) Acute on chronic combined systolic and diastolic CHF (congestive heart failure): Code(s): I50.43 - Acute on chronic combined systolic (congestive) and diastolic (congestive) heart failure Status: Acute Assessment and Plan: Patient has worsening shortness of breath, somewhat odd because of its episodic nature which can occur at rest. Mild volume overloaded on admission, with edema and an elevated BNP. Quickly resolved after receiving IV diuretic therapy. PE ruled out May have a component of anxiety Continue decreased dose of carvedilol 6.25 mg BID and follow. HR generally in the 60's, fewer episodes of bradycardia/pacing. Hold if HR < 60. If this problem continues, he may need an upgrade to a dual chamber device, or an electrophysiology consultation. (2) Ischemic cardiomyopathy: Code(s): I25.5 - Ischemic cardiomyopathy Status: Acute Assessment and Plan: Longstanding severe ischemic cardiomyopathy, EF 20-25%. Currently taking carvedilol and lisinopril Added spironolactone Added Farxiga Unlikely to benefit from an upgrade to a biventricular pacemaker since he has a right bundle branch block, not a left bundle branch block. Would be hesitant to use dobutamine or Milrinone because of his frequent ventricular ectopy. (3) PVCs (premature ventricular contractions): Code(s): I49.3 - Ventricular premature depolarization Status: Acute Assessment and Plan: Patient has frequent PVCs, some brief nonsustained ventricular tachycardia, and occasional bigeminy. (4) Bradycardia: Code(s): R00.1 - Bradycardia, unspecified Status: Acute Assessment and Plan: Patient has exhibited a couple episodes of fairly abrupt but also fairly brief bradycardia during which he paces VVI rate 40. Has a single lead ICD; if he has frequent episodes of bradycardia and paces a lot we may need to consider an upgrade to a dual chamber device. Reduced carvedilol dose (5) Hypotension: Code(s): I95.9 - Hypotension, unspecified Status: Acute Assessment and Plan: BP 80-90's systolically earlier in admission. Improving. (6) ROMIE (acute kidney injury): Code(s): N17.9 - Acute kidney failure, unspecified Status: Acute Assessment and Plan: BUN and creat improved Has been restarted on JESICA (7) ICD (implantable cardioverter-defibrillator) in place: Code(s): Z95.810 - Presence of automatic (implantable) cardiac defibrillator Status: Acute Assessment and Plan: Implanted for primary prevention, no therapies delivered. (8) CAD (coronary artery disease): Code(s): I25.10 - Atherosclerotic heart disease of [place] coronary artery without angina pectoris Status: Acute Assessment and Plan: Extensive coronary history with CABG and interventions in the past. Flat troponins, minimally elevated No chest pain CAD is probably stable. Continue aspirin, Plavix and atorvastatin Patient does have anterolateral T-wave inversion however, unable to find any old EKGs in our system or [employer] for comparison. (9) MADHU (obstructive sleep apnea): Code(s): G47.33 - Obstructive sleep apnea (adult) (pediatric) Status: Acute Assessment and Plan: Apnea link suggested sleep apnea and possible Valeriano-Brar respiration. Son describes seeing cyclical breathing consistent with Valeriano-Brar respiration, a sign of severely poor cardiac output Pulmonary consulted, appreciate recs Subjective Date/time seen: 09/13/21 09:34 Interval history: FU SOB, CHF, Longstanding cardiomyopathy, EF 25-30%, PVCs. 09/08/2021: Check a D-Dimer, cont tx CHF Date of service 09/09/2021: D-Dimer was high, but VQ scan neg for PE and LE doppler neg for DVT. Still feeling SOB, sometimes episodic for 5 minutes. There is concern some of this may be 2nd anxiety; trying hydroxyzine and also albuterol
[2021-09-13] MEDS: ALBUTEROL SULFATE NEB 2.5 MG/3 ML INH 0.63 MG INHALATION (10:20)
[2021-09-13 12:29] LABS: Alveolar/Arterial O2 Gradient 91.8 mmHg; Fractional Inspired Oxygen 28 %; HCO3 ABG 20.5 mEq/l (22.0-26.0); Oxygen Content ABG 23.7 %vol (16.0-22.0); Oxygen Saturation ABG 95.4 % (95.0-100.0); Oxyhemoglobin 94.2 % THb (90.0-100.0); PCO2 ABG 30.2 mmHg (35.0-45.0); PO2 ABG 72.2 mmHg (80.0-100.0); PO2 FiO2 Ratio Arterial Blood 2.58 %; Total Hemoglobin 17.9 g/dL (12.0-18.0); pH ABG 7.449 (7.350-7.450)
[2021-09-13 12:31] LABS: Device NASAL CANNULA; Modified Allen's Test Pass; Site Drawn RIGHT RADIAL
--- NOTE | 2021-09-13 12:39 | PM.PNPUL ---
Progress Note: A&P Assessment and Plan (1) Nocturnal hypoxemia: Code(s): G47.34 - Idiopathic sleep related nonobstructive alveolar hypoventilation Status: Acute Assessment and Plan: Patient is obese with a BMI of 30.7 and with an abnormal apnea link on 09/06/2021. Overnight oximetry on room air on 09/12/2021 demonstrates Average saturation 94%. Lowest saturation 80%. Time with saturation less than or equal to 88% was 25 minutes. Of note patient had an oxygen desaturation index of 33.3. the patient states he occasionally naps during the day and does not know if he snores. The patient may have an sleep related breathing disorder and will require an outpatient split night sleep study. This will be ordered through the Pulmonary Clinic after he follows up with us in the clinic. He has no no evidence of daytime hypercarbia with a blood gas on 2 L today at 7.. While he is awaiting his outpatient split night sleep study, I would discharge him on 2 L nasal cannula at night. (2) COPD (chronic obstructive pulmonary disease): Code(s): J44.9 - Chronic obstructive pulmonary disease, unspecified Status: Acute Assessment and Plan: the patient carries a history of COPD. He is currently not smoking. I have no PFTs or CT scan of the chest. He is maintained on tiotropium bromide 2.5 mcg 2 puffs q.day at home and albuterol p.r.n.. There is no evidence of a COPD exacerbation at this time. Blood gases as above demonstrates no daytime hypercarbia. patient should have a home O2 assessment prior to discharge. Patient is stable for discharge from a pulmonary perspective on these pulmonary medicines: Spiriva Respimat 2.5 mcg at 2 inhalations q.day. Albuterol inhaler 2 puffs Q 4-6 hours p.r.n. shortness of breath or wheezing. Home O2 at rest and with ambulation per formal home O2 assessment on the day of discharge. 2 L nasal cannula oxygen at night and when he naps during the day. Follow-up in the Pulmonary Clinic in 2-4 weeks for outpatient split night sleep study and outpatient PFTs if he is clinically stable. Discussed with Dr. Nuñez, will sign off, call with questions. Subjective Date/time seen: 09/13/21 12:39 Interval history: 09/13 patient states that his breathing is much improved since admission. Patient had an overnight oximetry on room air. Average saturation 94%. Lowest saturation 80%. Time with saturation less than or equal to 88% was 25 minutes. Of note patient had an oxygen desaturation index of 33.3. DATA: Patient had an apnea link on 09/06/2021 after he was admitted to the hospital on 2 L nasal cannula oxygen. Patient had an average saturation of 96%, lowest saturation 85%, time with saturation less than or equal to 88% was 2 minutes. Of note patient had an oxygen desaturation in a day index of 20.6. Review of Systems Review of Systems: All systems reviewed & are unremarkable except as noted in HPI and below Eyes: Eyes: Reports no additional eye complaints ENT: Reports system reviewed and no additional complaints, except as documented Cardiovascular: Cardiovascular: Reports no additional cardiovascular complaints Respiratory: Respiratory: Reports no additional respiratory complaints Gastrointestinal: Gastrointestinal: Reports no additional gastrointestinal complaints Musculoskeletal: Musculoskeletal: Reports no additional musculoskeletal complaints Integumentary/Breasts: Skin/Breast: Reports system reviewed and no additional complaints, except as docu Neurologic: Reports system reviewed and no additional complaints, except as documented Psychiatric: Psychiatric: Reports no additional psychiatric complaints Endocrine: Endocrine: Reports no additional endocrine complaints Exam Const: General: cooperative and healthy appearing Orientation/consciousness: oriented to person, oriented to place and oriented to time HENMT: Head: normal to i
--- NOTE | 2021-09-13 15:19 | PM.DS ---
DS: Admitting Diagnosis Discharge Date 09/13/21 Admitting Diagnosis Shortness of breath DS: Discharge Diagnosis Discharge Diagnosis (1) Acute exacerbation of CHF (congestive heart failure): Qualifiers: Heart failure type: unspecified Qualified Code(s): I50.9 - Heart failure, unspecified Code(s): I50.9 - Heart failure, unspecified Status: Acute Assessment and Plan: Patient was admitted for shortness of breath x several days prior to admission. Troponins were minimally elevated but flat. EKG showed bigeminy, RBBB, LPFB, and ST-T wave abnormalities in Leads V1-V3. CXR with mild pulmonary edema with cardiomegaly. Echo shows severe LV enlargement, severe global LV systolic dysfunction, EF 20-25%, Grade 3/4 diastolic dysfunction, and mild LAE. He was treated with IV Lasix but held due to soft BP. He began to have episodes of SOB with hyperventilating. Repeat CXR clear. Pulm perfusion scan showing no PE and venous doppler negative for DVT. CHF symptoms have resolved. He has a defibrillator in place. Appreciate Cardiology input. (2) Hyperventilation: Code(s): R06.4 - Hyperventilation Status: Acute Assessment and Plan: Patient was having panic like episodes with hyperventilation. Oxygen saturations remain in the high 90s during these episodes. Pulmonary perfusion negative for PE. Venous doppler negative for DVT. Suspect component of anxiety and patient was started on Buspar and prn Xanax. He did recently resume his Coreg 25mg bid prior to admission and was having some periods of sinus bradycardia with frequent ventricularly paced beats (ICD paced at HR<40bpm) that is competing with atrial beats since he has just a single lead ICD implanted. Perhaps the bradycardia and AV desynchrony is contributing to his symptoms. Coreg dose was cut back so may also be helping his symptoms. He worked with therapy. He is up walking in the room and to the bathroom with standby assist. He was independent. (3) CAD (coronary artery disease): Code(s): I25.10 - Atherosclerotic heart disease of [place] coronary artery without angina pectoris Status: Acute Assessment and Plan: Patient denied chest pain. Serial troponins minimally elevated but flat as noted above. Patient has a history of CABG and now s/p revision potentially in 2019. Patient was unsure if he takes aspirin and Plavix anymore at home. Aspirin and Plavix resumed here. Coreg dose was decreased and appears to be tolerating this. We continued Lipitor. (4) Ventricular bigeminy: Code(s): I49.8 - Other specified cardiac arrhythmias Status: Acute Assessment and Plan: Ventricular bigeminy seen on admission. Patient is reportedly having runs of nonsustained V-tach during his stay and may correlate with his symptomatic dyspnea. He does have a cardiac pacemaker defibrillator, and he states it has never gone off. TSH normal. Plan as above. Appreciate Cardiology input (5) Sleep apnea: Code(s): G47.30 - Sleep apnea, unspecified Status: Acute Assessment and Plan: Son reports several minutes on apneic episodes when patient in the ER. Patient has never been previously evaluated for sleep apnea. ApneaLink on 2L showed AHI 25.4 and probably Valeriano Brar respirations with 112 apneic episodes. Pulmonology followed and appreciate their input. Plan for outpatient sleep study. He did get another ApneaLink on room air that showed he need 2L O2 at night. Home oxygen evaluation also showing that he needs 2L with activity but room air at rest. This was arranged at discharge. (6) COPD (chronic obstructive pulmonary disease): Code(s): J44.9 - Chronic obstructive pulmonary disease, unspecified Status: Acute Assessment and Plan: Patient had not required supplemental oxygen at home prior to admission. He remains on Albuterol and Atrovent nebs and felt these were helping him. (7) Hyper
--- NOTE | 2021-09-13 15:40 | HOMEO2EVAL ---
Evaluation was performed at [facility] Home Oxygen Evaluation RC: Home Oxygen (O2) Evaluation Start: 09/13/21 14:39 Freq: ONCE Status: Active Protocol: RPE Activity Type Activity Date Activity User E-Sign Co-Sign Detail Recorded Client Recorded Date Recorded By Document 09/13/21 15:15 MOON [email or web address] 09/13/21 15:40 MOON Document 09/13/21 15:18 MOON [email or web address] 09/13/21 15:40 MOON Document 09/13/21 15:19 MOON [email or web address] 09/13/21 15:40 MOON Document 09/13/21 15:20 MOON [email or web address] 09/13/21 15:40 MOON Document 09/13/21 15:30 MOON [email or web address] 09/13/21 15:40 MOON 09/13/21 09/13/21 09/13/21 15:15 15:18 15:19 Home O2 Evaluation Test Phase Resting Exercise Exercise Oxygen Delivery Room Air Room Air Nasal Cannula Oxygen Flow Rate (L/min) 1 Pulse Oximetry (90-100 %) 100 84 L 87 L Pulse Rate (60-100 beats/min) 78 89 Home Oxygen Evaluation Comments Treatment Charges O2 Evaluation - Inpatient 09/13/21 09/13/21 15:20 15:30 Home O2 Evaluation Test Phase Exercise Resting Oxygen Delivery Nasal Cannula Room Air Oxygen Flow Rate (L/min) 2 Pulse Oximetry (90-100 %) 93 98 Pulse Rate (60-100 beats/min) 90 79 Home Oxygen Evaluation Comments PT REQUIRES 2 L O2 WITH ACTIVITY Treatment Charges
== END 2021-09-13 19:25 | disposition home or self-care (01) | DRG 291 ==
LOC: ANHED 13:45 → ANH2MED 16:27
PROVIDERS: Emergency Medicine; Family Medicine; Internal Medicine Cardiovascular Disease; Internal Medicine Pulmonary Disease; Nurse Practitioner; Physician Assistant; Student in an Organized Health Care Education/Training Program; Admitting Provider Student in an Organized Health Care Education/Training Program; Emergency Provider Nurse Practitioner Family; PCP Physician Assistant; Visit Provider Internal Medicine
DX: I11.0 Hypertensive heart disease with heart failure (principal); I50.43 Acute on chronic combined systolic (congestive) and diastolic (congestive) heart failure; N17.9 Acute kidney failure, unspecified; G47.33 Obstructive sleep apnea (adult) (pediatric); R06.4 Hyperventilation; I49.8 Other specified cardiac arrhythmias; I95.9 Hypotension, unspecified; J44.9 Chronic obstructive pulmonary disease, unspecified; E78.5 Hyperlipidemia, unspecified; I25.10 Atherosclerotic heart disease of native coronary artery without angina pectoris; I25.5 Ischemic cardiomyopathy; E66.9 Obesity, unspecified; Z68.30 Body mass index [BMI] 30.0-30.9, adult; I25.2 Old myocardial infarction; Z95.1 Presence of aortocoronary bypass graft; Z95.5 Presence of coronary angioplasty implant and graft; Z95.810 Presence of automatic (implantable) cardiac defibrillator; Z79.82 Long term (current) use of aspirin; Z79.899 Other long term (current) drug therapy
CPT/HCPCS: 36415; 36600; 71046; 78580; 80048; 80053; 80069; 82728; 82805; 83735; 83880; 84443; 84484; 85025; 85027; 85055; 85380; 85610; 85730; 93005; 93970; 94618; 94640; 94762; 96372; 96374; 96375; 96376; 97110; 97162; 97165; 97530; 97535; 99285; A9270; A9540; C8929; G0378; J1650; J1940; J7030; Q9957

== ENCOUNTER 2021-11-05 13:58 | Outpatient (CLI) | payer MEDICARE, OTHER, SELFPAY ==
--- NOTE | ~2021-11-05 | CT_ITS ---
EXAMINATION: CT lung screening DATE: 11/05/2021 15:11 INDICATION: COPD. Former smoker. Shortness of breath. TECHNIQUE: Computed tomography (CT) of the chest was performed without intravenous contrast. The dose -length product was 180.47 mGy-cm. Automated exposure control and iterative reconstruction technique were employed. COMPARISON: Chest x-ray dated 09/07/2021 FINDINGS: No significant pleural or pericardial effusion. Borderline heart size. There is atheroscler osis of the aorta and coronary arteries. Status post median sternotomy for CABG. No thoracic lymphade nopathy. There are pancreatic calcifications, consistent with chronic pancreatitis. There is gynecoma stia. There are a few scattered subpleural 1-2 mm nodules there are a few small focal areas of ground glass opacification in the upper lobes, possibly small airway disease there are small fissural nodule s on the right measuring 4 mm or less. There is mild emphysema. Mild thoracic spondylosis.. IMPRESSION: 1. Lung-RADS category 2: Benign appearance or behavior. Continue annual screening with noncontrast lo w-dose chest CT in 12 months. Reviewed, dictated and finalized at location A. IMPRESSION: 1. Lung-RADS category 2: Benign appearance or behavior. Continue annual screeni ng with noncontrast low-dose chest CT in 12 months.
--- NOTE | 2021-11-07 17:01 | WPDPFTINT ---
PFT Interpretation DOS: 11/05/2021 REQUESTING: Dr Rhett Ardon REASON FOR TESTING: Dyspnea PULMONARY FUNCTION TESTS The patient had COVID a month prior to testing. Results are reliable and reproducible. Spirometry: Pre bronchodilator FEV1 is 72% predicted, 2.33 L, normal. Pre bronchodilator FVC is 75% predicted, 3.24 L, normal. FEV1/FVC ratio is 72% normal. FEV F 25-75 is 57% predicted. After bronchodilator administration, there is a non statistically significant change in the FVC which is now 80% predicted, 6% increase, 3.44 L. There is a 5% increase in the FEV1, 76% predicted, 2.44 L. There is a 9% increase in the MEU40-89%, 62% predicted, 1.49 L. Lung volumes: Total lung capacity is 90% predicted, 6.48 L, normal. ERV is 17% predicted, 0.26 L, decreased. Residual volume is 125% predicted, mildly increased, 3.18 L consistent with mild air trapping. RV/TLC is increased 49% consistent with air trapping. Airway resistance is 233 elevated. Diffusion: DLCO 61% predicted. DLCO/VA 83%. Flow volume loop: Incomplete closure of the inspiratory limb. This was reproduced on all efforts. IMPRESSION: Normal spirometry without change to bronchodilator, mild air trapping and mild diffusion impairment. This is a non-specific pattern. Lack of response to bronchodilator should not preclude use if clinically indicated. Isabel Mari MD
== END 2021-11-05 13:59 | disposition home or self-care (01) ==
LOC: ANHPFT 14:03
PROVIDERS: PCP Physician Assistant; Visit Provider Internal Medicine Pulmonary Disease
DX: Z12.2 Encounter for screening for malignant neoplasm of respiratory organs (principal); Z87.891 Personal history of nicotine dependence; R06.00 Dyspnea, unspecified
CPT/HCPCS: 71271; 94060; 94726; 94729

== ENCOUNTER → 2021-11-16 00:21 | Outpatient (CLI) | payer MEDICARE, OTHER, SELFPAY ==
[2021-11-16 11:11] LABS: SARS-CoV-2 RNA PCR Negative
== END ==
PROVIDERS: PCP Physician Assistant; Visit Provider Internal Medicine Critical Care Medicine
DX: R68.89 Other general symptoms and signs (principal); Z20.822 Contact with and (suspected) exposure to COVID-19
CPT/HCPCS: C9803; U0003; U0005

== ENCOUNTER 2021-11-18 08:40 | Outpatient (CLI) | payer MEDICARE, OTHER, SELFPAY ==
--- NOTE | 2021-12-16 12:11 | WPDSLEEPSTUD ---
Sleep Study Date of Study: 11/18/21 Ordering Provider: Rhett Ardon MD Interpreting Physician: Isabel Mari MD Sleep Study Type: Polysomnogram Height: 1.8 m Weight: 94.347 kg Body Mass Index: 29.0 Neck Circumference (inches): 17.5 [place]: 4 Reason for Sleep Study Poor quality of sleep, shortness of breath at night Sleep History Buck Bustillo is a 71-year-old man with systolic congestive heart failure, his EF is 25%. He does not sleep well at night and he feels short of breath at night. He wakes up throughout the night. He occasionally wakes up at night gasping for breath. Occasionally wakes up with breathing problems observed by others. He occasionally falls asleep during the day. He occasionally remembers his dreams. He does not grind his teeth during sleep, he is not bothered by pain during the day and he is not awakened by pain during the night. He does not wake up feeling stiff in the morning with sore achy muscles or pain in the neck and spine. His bedtime is midnight, falling asleep within 5-10 minutes, waking throughout the night a minimum of 6 episodes sometimes more. He may change positions before returning to sleep. On average he stays awake for 3 minutes. He wakes up for the day by 6:00 a.m.. His weekend schedule is the same. He takes naps during the day. A short nap may be refreshing. He is usually drowsy after waking for 3 hours or longer. Habits: Tobacco: 1 and half packs per day, quit 2 years ago. Caffeine: He drinks soda, 3 bottles 12 oz or less daily. No alcohol or recreational drugs. [facility] Past Medical History Medical History Acute on chronic combined systolic and diastolic CHF (congestive heart failure) Bradycardia CAD (coronary artery disease) Cardiac defibrillator in situ CHF (congestive heart failure) COPD (chronic obstructive pulmonary disease) HTN (hypertension), malignant Hyperlipidemia ICD (implantable cardioverter-defibrillator) in place Ischemic cardiomyopathy Myocardial infarction MADHU (obstructive sleep apnea) PVCs (premature ventricular contractions) Surgical History Surgical History History of coronary artery stent placement X2 History of tonsillectomy S/P triple vessel bypass Family History Family History Mother Acute myocardial infarction Social History Social History Social History: The patient lives at home with his . He has 4 children. 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 The patient occasionally has a social drink. The patient stated that he quit smoking at the beginning of COVID 19. He is retired. Code status full code Smoking packs per day: 1 Smoking cigarettes per day: 20.0 Smoking status: Former smoker Tobacco type: cigarettes Second hand tobacco smoke exposure: No Smoking end date: 08/23/19 Alcohol intake: former Spiritual care concerns: No Medications Home Medications Medication Instructions Recorded Confirmed Type albuterol sulfate 0.63 mg/3 mL 0.63 mg inhalation Q6H PRN Wheezing 09/06/21 11/10/21 History solution for nebulization albuterol sulfate 90 mcg/actuation 2 puff inhalation Q4-6H 09/06/21 11/10/21 History aerosol inhaler aspirin 81 mg tablet 81 mg PO DAILY 09/06/21 11/10/21 History atorvastatin 80 mg tablet 80 mg PO DAILY 09/06/21 11/10/21 History clopidogrel 75 mg tablet 75 mg PO DAILY 09/06/21 11/10/21 History alprazolam 0.5 mg tablet 0.5 mg PO TID PRN Anxiety #20 tabs 09/13/21 11/10/21 Rx buspirone 15 mg tablet 15 mg PO Q12HR #60 tabs 09/13/21 11/10/21 Rx carvedilol 6.25 mg tablet (Coreg) 6.25 mg PO Q12HR #60 tabs 09/13/21 11/10/21 Rx empagliflozin 10 mg tablet 10 mg PO QAM #30 tabs 09/13/21 11/10/21 Rx (Jardiance) lisinopril 5 mg tablet 5 mg PO QAM #3
[2021-12-16 13:20] VITALS: BMI 29.0
== END 2021-11-19 06:34 | disposition home or self-care (01) ==
LOC: ANHCSM 08:42
PROVIDERS: PCP Physician Assistant; Visit Provider Internal Medicine Pulmonary Disease
DX: G47.10 Hypersomnia, unspecified (principal); G47.30 Sleep apnea, unspecified; G47.33 Obstructive sleep apnea (adult) (pediatric); G47.31 Primary central sleep apnea
CPT/HCPCS: 95810

== ENCOUNTER 2022-04-20 09:45 | Outpatient (RCR) | payer MEDICARE, OTHER, SELFPAY ==
[2022-01-25 11:37] VITALS: PULSE 62
== END 2022-04-20 13:10 | disposition home or self-care (01) ==
LOC: ANHCPREHAB 09:45
PROVIDERS: PCP Physician Assistant; Visit Provider Nurse Practitioner Adult Health
DX: I50.89 Other heart failure (principal)
CPT/HCPCS: 93798

== ENCOUNTER 2022-08-26 17:25 | Outpatient (CLI) | payer MEDICARE, OTHER, SELFPAY ==
[2022-08-26 18:29] LABS: Anion Gap 10 mmol/L (8-16); Blood Urea Nitrogen 26 mg/dL (9-20); Calcium 8.7 mg/dL (8.4-10.2); Carbon Dioxide 28 mmol/L (22-30); Chloride 99 mmol/L (98-107); Estimated Glomerular Filt Rate 46; Glucose 123 mg/dL (65-110); Potassium 3.6 mmol/L (3.4-5.0); Sodium 137 mmol/L (137-145)
== END 2022-08-26 17:26 | disposition home or self-care (01) ==
PROVIDERS: PCP Physician Assistant; Visit Provider Internal Medicine Cardiovascular Disease
DX: I25.5 Ischemic cardiomyopathy (principal)
CPT/HCPCS: 36415; 80048

== ENCOUNTER 2024-06-18 11:07 | Outpatient (CLI) | payer MEDICARE, OTHER, SELFPAY ==
[2024-06-18 11:38] LABS: Basophils Absolute Auto 0.1 K/mm3 (0.0-0.1); Basophils Percent Auto 1.4 % (0.2-1.2); Eosinophils Absolute Auto 0.4 K/mm3 (0-0.3); Eosinophils Percent Auto 5.6 % (0-4.4); Hematocrit 52.3 % (42.0-52.0); Hemoglobin 17.5 g/dL (14.0-18.0); Immature Granulocyte Absolute 0.02 K/mm3 (0.00-0.031); Immature Granulocyte Percent A 0.3 % (0-0.5); Lymphocytes Absolute Auto 1.54 K/mm3 (0.9-3.2); Mean Corpuscular HGB Conc 33.5 g/dl (32-36); Mean Corpuscular Hemoglobin 29.6 pg (26-34); Mean Corpuscular Volume 88.3 fl (80-100); Mean Platelet Volume 10.4 fl (7.4-10.4); Monocytes Absolute Auto 0.3 K/mm3 (0.1-0.6); Monocytes Percent Auto 3.8 % (2.6-8.5); Neutrophils Percent Auto 67.9 % (45.5-73.1); Platelet Count Result 184 k/mm3 (150-375); Red Blood Count 5.92 M/mm3 (4.6-6.20); Red Cell Distribution Width 12.8 % (11.5-14.5); White Blood Count 7.3 K/mm3 (4.5-10.0)
--- OUTSIDE RECORDS SUMMARY | 2024-06-18 13:13 | XMS_ITS | Encounter Summary ---
Author Organization [facility]EL[facility] Address [address] [place] [address] Care Team Providers Care Station Worker Name Role Phone Unavailable Primary Care Provider Unavailabl e Reason for Referral * Laboratory Services (Routine) - Open Specialty Diagnoses / Procedures Referred By Contac t Referred To Contact Diagnoses Polycythemia, secondary Procedures JAK2 MUTATION Fortunato Kathleen MD [address] [facility] [place] [address] [address] Phone: tel: fax: Referral ID Status Reason Start Date Expiration Date Visits Re quested Visits Authorized [id number] Open 06/18/2024 07/19/2025 1 1 A LIBRARIAN Reason for Visit * Reason Comments Establish Care Encounter Details Date Type Department Care Team (Late st Contact Info) Description 06/18/2024 10:30 AM MEDIA LIBRARIAN Office Visit [facility] Oncology and Hematology - [place] [address] [place] [phone] Fortunato Kathleen MD [facility] [employer] [facility] [address] [place] [phone] Polycythemia, secondary (Primary Dx) Social History Tobacco Use Types Packs/Day Years Used Date Smoking Tobacco: Former Cigarettes 1 50 0 06/18/1964 - 06/18/2014 Smokeless Tobacco: Never Tobacco Cessation:Counseling Given: Not Answered Alcohol Use Standard Drinks/Week Comments Not Currently 0 (1 standard drink = 0.6 oz pur e alcohol) Sex and Gender Information Value Date Recorded Sex Assigned at Not on file Legal Sex Male 8:57 AM MEDIA LIBRARIAN Gender Identity Not on file Sexual Orientation Not on file documented as of this encounter Last Filed Vital Signs Vital Sign Reading Time Taken Comments Blood Pressure 117/77 06/18/2024 10:35 AM MEDIA LIBRARIAN Pulse 69 06/18/2024 10:35 AM MEDIA LIBRARIAN Temperature 36.8 C (98.3 F) 06/18/2024 10:35 AM MEDIA LIBRARIAN Respiratory Rate 17 06/18/2024 10:3 5 AM MEDIA LIBRARIAN Oxygen Saturation 97% 06/18/2024 10: 35 AM MEDIA LIBRARIAN Inhaled Oxygen Concentration - - Weight 98.8 kg (217 lb 12.8 oz) 025 10:35 AM MEDIA LIBRARIAN Height 180.3 cm (5' 11 ) 06/18/2024 10: 35 AM MEDIA LIBRARIAN Body Mass Index 30.38 06/18/2024 10:35 AM MEDIA LIBRARIAN documented in this encounter Progress Notes * Fortunato Kathleen MD - 06/18/2024 11:07 AM CST Hematology-oncology consult Note Requesting Physician Primary Care Physician No primary care provider on file. Problem list There is no problem list on file for this patient. Previous TREATMENT ? Measurable Disease ? Reason for Visit Lamont Bustillo is a 73 y.o. male who was referred for consultation for erythrocytosis. History of present illness This is a pleasant 73-year-old male with history of smoking and COPD quit smoking 10 years ago along with history of coronary artery disease status post coronary artery bypass grafting x 3 in 1999 currently on aspirin and Plavix referred to me for erythrocytosis. He also possibly has sleep apnea but did not complete the sleep study. He has history of hypertension and hyperlipidemia. He denies any history of thromboembolic events and stroke. He denies any chest pain but does have some shortness of breath and uses oxygen and nighttime. No other new complaints. Past Medical History Past Medical History: Diagnosis Date Emphysema of lung (CMS/HCC) Hyperlipidemia Hypertension Coronary artery disease status post coronary artery bypass grafting Surgical History Past Surgical History: Procedure Laterality Date HX BYPASS Defibrillator placement Medications Current Outpatient Medications Medication Sig Dispense Refill carvediloL (COREG) 25 mg tablet Take 25 mg by mouth 2 times daily. furosemide (LASIX) 40 mg tablet Take 40 mg by mouth daily. lisinopriL (PRINIVIL) 20 mg tablet Take 20 mg by mouth daily. aspirin (ECOTRIN EC) 81 mg Tablet, Delayed Release (E.C.) Take 81 mg by mouth daily. atorvastatin (LIPITOR) 80 mg tablet Take 80 mg by mouth daily. clopidogreL (PLAVIX) 75 mg Tablet Take 75 mg by mouth. empagliflozin (JARDIANCE) 10 mg tablet Take 10 mg by mouth daily. spironolactone (ALDACTONE) 25 mg tablet Take 25 mg by mouth daily. Breztri Aerosphere 160 mcg-9mcg-4.8mcg/actuation HFA aerosol inhaler Take 2 Puffs by inhalation 2 times daily. No current facility-administered medications for this visit. Allergies No Known Allergies Immunizations: There is no immunization history on file for this patient. Family History Family History Adopted: Yes Problem Relation Name Age of Onset No Known Problems Father Cancer Mother Heart Disease Mother No Known Problems Brother No Known Problems Brother No Known Problems Child No Known Problems Child No Known Problems Child No Known Problems Child Breast Cancer Sister Social History Social History Tobacco Use Smoking status: Former Current packs/day: 0.00 Average packs/day: 1 pack/day for 50.0 years (50.0 ttl pk-yrs) Types: Cigarettes Start date: 06/18/1964 Quit date: 06/18/2014 Years since quittin.0 Smokeless tobacco: Never Substance Use Topics Alcohol use: Not Currently Review of Systems Constitutional: Patient did not mention fever; no night sweats; no anorexia; no weight loss; no fatique NEENT: Patient did not mention headache; no change in vision; no change in hearing; no sore throat;no dysphagia Respiratory: Patient did not mention shortness of breath; no pleuritic chest pain; no cough; no hemoptysis Cardiac: Patient did not mention cardiac-like chest pain; no palpitations; no orthopnea; no PND; noDOE GI: Patient did not mention abdominal pain; no nausea; no vomiting; no diarrhea; no hematochezia; no melena : Patient did not mention dysuria; no frequency; no hesitancy; no hematuria RECORDS ASSOCIATE: Musculosketetal: Patient did not mention bone pain; no arthralgia; no joint swelling; no myalgia; Skin: Patient did not mention pruritis; no rash; no petechiae; no ecchymoses Endocrine: Patient did not mention polydipsia; no polyuria; no unusual weight gain Neuro: Patient did not mention headache; no change in vision; no sensory changes; no muscle weakness; no confusion; no seizures Psych: Patient did not mention anxiety; no depression; Physical Exam Vitals: As per nursing note Constitutional: Well developed, well nourished, no acute distress, non-toxic appearance Teeth and gum. No signs of infection or swelling. Eyes: PERRL, conjunctiva normal HEENT: Atraumatic, external ears normal, nose normal, oropharynx moist, no pharyngeal exudates. no sinus tenderness Neck- normal range of motion, no tenderness, supple Respiratory: No respiratory distress, normal breath sounds, no rales, no wheezing Cardiovascular: Normal rate, normal rhythm, no murmurs, no gallops, no rubs GI: Soft, nondistended, normal bowel sounds, nontender, no splenomegaly, no hepatomegaly, no mass, no rebound, no guarding : No costovertebral angle tenderness Musculoskeletal: No edema, no tenderness, no deformities. Back- no tenderness Integument: Well hydrated, no rash, Digits and nails inspection normal Lymphatic: No lymphadenopathy noted Neurologic: Alert & oriented x 3, CN 2-12 normal, normal motor function, normal sensory function, no focal deficits noted Psychiatric: Speech and behavior appropriate ? labs No results found for this or any previous visit (from the past 24 hours). Labs from March 27, 2024 showed WBC 6.6 hemoglobin 18.4 hematocrit 54 platelet 183,000 Pathology ? Imaging & Other Studies Performance Status? Assessment / Plan: ? Erythrocytosis. This is a pleasant 73-year-old male with history of smoking and COPD along with history of coronary artery disease status post coronary artery bypass grafting, hypertension and hyperlipidemia referred to me for erythrocytosis. He also possibly have history of sleep apnea but did not completed the sleep study. He uses oxygen at nighttime. He quit smoking about 10 years ago. I have discussed the differential diagnosis of erythrocytosis which include erythrocytosis secondary to smoking history/COPD and possibly sleep apnea and obesity. We will order the blood test including CBC with differential, CMP, erythropoietin level and JAK2 mutation. He will continue baby aspirin and Plavix. I will order phlebotomy of 500 cc to keep hematocrit less than 50 based on the repeatlabs. I will discuss this with patient in 2 weeks. I have answered all the questions to patient andson satisfaction. Coronary artery disease status post coronary artery bypass grafting. He is on Plavix and aspirin. Hypertension. He is on Prinivil and Coreg. Hyperlipidemia. Patient is on Lipitor. Thank you very much for allowing me to participate in Lamont Bustillo's evaluation and management. Please feel free to contact if I can be of any further assistance in your patient???s care requiring hematology or oncology evaluation. Sincerely, ? ? Fortunato Kathleen M.D. cell TOBACCO COUNSELING He is not a tobacco/nicotine user. Fortunato Kathleen MD ,06/18/2024 11:07 AM ? Total time spent 60 minutes, two third of the total time spent counseling patient [id number]. CC:? A LIBRARIAN documented in this encounter Plan of Treatment Upcoming Encounters Date Type Department Care Team (Late st Contact Info) Description 07/02/2024 4:30 PM CDT Telephone Check Up [facility] Oncology and Hematology [facility] [address] [facility] [address] [place] [phone] Fortunato Kathleen MD [address] [facility] [address] [place] [address] Scheduled Orders Name Type Priority Associated Diagnoses Orde r Schedule CBC WITH DIFFERENTIAL Lab Stat Polycythemia, secondary Expected: 06/18/2024, Expires: 06/18/2025 COMPREHENSIVE METABOLIC PANEL Lab Stat Polycythemia, secondary Expected: 06/18/2024, Expires: 06/18/2025 ERYTHROPOIETIN LEVEL Lab Routine Polycythemia, secondary Expected: 06/18/2024, Expires: 06/18/2025 JAK2 MUTATION Lab Routine Polycythemia, secondary Expected: 06/18/2024, Expires: 06/18/2025 documented as of this encounter Visit Diagnoses Diagnosis Polycythemia, secondary- Primary documented in this encounter
--- OUTSIDE RECORDS SUMMARY | 2024-06-18 13:13 | XMS_ITS | Clinical Summary ---
Author Organization [place] [id number] [facility] Address [address] [place] [address] Care Team Providers Care Monorail Car Operator Name Role Phone No, Physician Unavailable Vika Landa Primary Care Provider [phone] Allergies No known active allergies Medications albuterol 0.63 mg/3 mL nebulizer solutionIndication s:Shortness of breath Take 3 mL (0.63 mg total) by nebulization every 6 (six) hours as needed for wheezing 75 mL 3 10/15/19 21 Active albuterol HFA (ProAir HFA) 90 mcg/actuation inhalerIndications :Chronic obstructive pulmonary disease, unspecified COPD type (HCC) Inhale 2 puffs every 4 (four) hours as needed for wheezing or shortness of breath 3 Inhaler 3 10/15/19 21 Active aspirin 81 mg enteric coated tabletIndications: Coronary artery disease involving yomba shoshone coronary artery of yomba shoshone heart with angina pectoris (HCC) Take 1 tablet (81 mg total) by mouth daily 90 tablet 3 10/15/19 21 Active atorvastatin (LIPITOR) 80 mg tabletIndications: Coronary artery disease involving yomba shoshone coronary artery of yomba shoshone heart with angina pectoris (HCC) Take 1 tablet (80 mg total) by mouth daily 90 tablet 3 10/15/19 21 Active clopidogreL (PLAVIX) 75 mg tabletIndications: myocardial infarction prevention,cardiov ascular disease Take 1 tablet (75 mg total) by mouth daily 90 tablet 3 10/15/19 21 Active budesonide-glycopy r-formoterol (Breztri Aerosphere) 160-9-4.8 mcg/actuation HFA aerosol inhaler Inhale 2 puffs 2 (two) times a day Active empagliflozin (JARDIANCE) 10 mg tabletIndications: type 2 diabetes mellitus Take 1 tablet (10 mg total) by mouth daily Active spironolactone (ALDACTONE) 25 mg tablet daily Active furosemide (LASIX) 40 mg tablet Take 1 tablet (40 mg total) by mouth daily 30 tablet 11 08/19/19 23 Active carvediloL (COREG) 25 mg tabletIndications: Ischemic cardiomyopathy Take 1 tablet (25 mg total) by mouth 2 (two) times a day with meals 04/26/19 25 026 Active lisinopriL (PRINIVIL,ZESTRIL) 20 mg tablet Take 1 tablet (20 mg total) by mouth daily 90 tablet 3 06/17/19 25 026 Active lisinopriL (PRINIVIL,ZESTRIL) 20 mg tablet Take 1 tablet (20 mg total) by mouth daily 04/26/19 25 025 Discontin ued(Reord er) Active Problems Problem Noted Date Diagnosed Date Hx of CABG 04/26/2024 History of percutaneous coronary intervention Primary hypertension 04/26/2024 Chronic HFrEF (heart failure with reduced ejection fraction) (CMS/HCC) 01/20/2022 NSVT (nonsustained ventricular tachycardia) 12/24 Sensorineural hearing loss (SNHL) of both ears 0 10/09/2018 ICD (implantable cardioverter-defibrillator) in place 09/19/2018 Overview (09/24/2018): Medtronic Single ICD. Dx; ICM. Gen change 09/06/2018-[employer]heria, chronic lead 03/19/2007. Carelink remote monitoring, office device checks Q1 yr. Ischemic cardiomyopathy 08/28/2018 Assessment & Plan (08/28/2018 1:49 AM CDT): s/p ICD placement (Medtronic). Follow with [employer] Staff Officer Dr. Palomo at [facility]. ECHO in 02/2018 with reports of severe LV enlargement, with swevere global systolic dys function and moderate LAE. LVEF is </=25%. Report of battery needing replacement and currently non-functional (?) - Interrogate ICD - Consult EP for any necessary battery exchange. - If no LHC is pursued for NSTEMI, can consider obtaining TTE for further evaluation. COPD (chronic obstructive pulmonary disease) 10/2018 Assessment & Plan (08/28/2018 1:50 AM CDT): COPD is stable, and quite mild. Questionable diagnosis per family. Takes no home inhalers, although is prescribed albuterol PRN. No home oxygen requirement. - duonebs PRN for any SOB Mixed hyperlipidemia 08/28/2018 Assessment & Plan (08/28/2018 1:52 AM CDT): Lipid abnormalities are stable and generally at goal levels per OSH lipid Panel. Has been on 20mg Atorvastatin qPM prior to admission. - Increased to 80mg Atrovastatin qPM given apparent worsening of CAD in setting of NSTEMI (second in past year). CAD (coronary artery disease) 08/28/2018 Assessment & Plan (08/28/2018 1:54 AM CDT): Coronary artery disease is worsening given apparent second NSTEMI within past year. 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 Known graft and yomba shoshone artery occlusive disease. Most recent NSTEMI in 02/2018 managed medically without intervention. - Increasing atorvastatin from 20mg to 80mg given apparent worsening of CAD occlusive disease of yomba shoshone coronaries. Continue on Aspirin 81mg QD History of tobacco abuse 08/28/2018 Assessment & Plan (08/28/2018 1:56 AM CDT): Has smoked 1.5 ppd for ~57 years, more recently down to 1 ppd. Has made little improvement despite years of education and encouragement. - Empathized with patient that smoking cessation is difficult, but strongly advised patient to decrease and eventually quit smoking as this is contributing to his overall poor cardiovascular health. Resolved Problems Problem Noted Date Diagnosed Date Resolved Date Continuous dependence on cigarette smoking 03/13/2019 10/19/2020 Animal scratch 03/13/2019 10/19/2020 JESICA-inhibitor cough 12/12/2018 06/25/19 20 S/P coronary artery stent placement 09/19/2018 10/19/2020 Pseudoaneurysm following procedure ([facility]) 9 10/19/2020 Encounter due to AICD at end of battery life 9 10/19/2020 Overview (08/30/2018): Added automatically from request for surgery NSTEMI (non-ST elevated myoc ardial infarction) ([facility]) 08/28/2018 10/19/2020 Assessment & Plan (08/28/2018 1:45 AM CDT): Patient presented to OSH with chest discomfort with elevated trop as high as 10.0's. LHC at OSH was completed showing new subtotal blockage of circumflex. Chest discomfort no longer present after transfer, thsi is with nitro patch still in place from OSH. Troponin downtrended to 4.88 (appears to be same scale as OSH). - Trend trops, monitor on tele, continue heparain gtt, aspirin, high intensity atorvastatin, and beta keegan - Holding ACEi as patient had contrast load at OSH, with potential for additional contrast load. - Consult interventional cardiology for review of LHC images (uploaded and available for review) to determine need for possible LHC and stenting Encounters Date Type Department Care Team Description 05/28/2024 Telephone [facility] Cardiology [address] [facility] [address] [place] [phone] Deepa Hurd MD 04/26/2024 2:45 PM FAT PURIFICATION WORKER Office Visit [facility] Cardiology [address] [facility] [address] [place] [phone] Deepa Hurd MD Chronic HFrEF (heart failure with reduced ejection fraction) ([facility]) ([facility]) (Primary Dx); Coronary artery disease involving yomba shoshone coronary artery of yomba shoshone heart without angina pectoris; Hx of CABG; History of percutaneous coronary intervention; Ischemic cardiomyopathy; 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; Mixed hyperlipidemia; Primary hypertension 04/26/2024 1:00 PM FAT PURIFICATION WORKER Ancillary Procedure [facility] Cardiology [address] [place] [address] Ischemic cardiomyopathy; Mixed hyperlipidemia; Coronary artery disease involving yomba shoshone coronary artery of yomba shoshone heart without angina pectoris; 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; Chronic HFrEF (heart failure with reduced ejection fraction) ([facility]) ([facility]) 04/26/2024 Telephone [facility] Cardiology [address] [place] [phone] Deepa Hurd MD from Last 3 Months Immunizations Immunization Administration Dates Next Due Influenza, Trivalent, High D ose, Split, Preservative Free, Intramuscular 03/13/2019 Pneumococcal Conjugate PCV 13 06/12/2019 Tdap 03/13/2019 Medical History Medical History Date Comments Animal scratch 03/13/2019 NSTEMI (non-ST elevated myoc ardial infarction) ([facility] ([facility]) 08/28/2018 Encounter due to AICD at end of battery life 08/30/2018 Added automatically from [employer] TKO for surgery Pseudoaneurysm following pro cedure ([facility] ([facility]) 09/03/2018 S/P coronary artery stent placement 09/19/2018 Continuous dependence on cig arette smoking 03/13/2019 Family History Medical History Relation Name Comments No Known Problems Father No Known Problems Mother Relation Name Status Comments Father Mother Social History Tobacco Use Types Packs/Day Years Used Date Smoking Tobacco: Former Cigarettes 1 15 S tarted: 08/23/2018 Smokeless Tobacco: Never Tobacco Cessation:Counseling Given: Not Answered Comments:last cigarette 4 days ago Alcohol Use Standard Drinks/Week Comments Not Currently 0 (1 standard drink = 0.6 oz pur e alcohol) PHQ-2 Answer Date Recorded PHQ-2 Score 0 12/12/2018 Sex and Gender Information Value Date Recorded Sex Assigned at Not on file Legal Sex Male 2:13 AM FAT PURIFICATION WORKER Gender Identity Not on file Sexual Orientation Not on file Obstetrics History Last Filed Vital Signs Vital Sign Reading Time Taken Comments Blood Pressure 118/74 04/26/2024 2:34 PM FAT PURIFICATION WORKER Pulse 75 04/26/2024 2:34 PM FAT PURIFICATION WORKER Temperature 36.5 C (97.7 F) 06/12/2019 10:19 AM FAT PURIFICATION WORKER Respiratory Rate 18 06/12/2019 10:19 AM FAT PURIFICATION WORKER Oxygen Saturation 100% 04/26/2024 2:34 PM FAT PURIFICATION WORKER Inhaled Oxygen Concentration - - Weight 98.4 kg (217 lb) 04/26/2024 2:34 PM FAT PURIFICATION WORKER Height 180.3 cm (5' 11 ) 04/26/2024 2:34 PM FAT PURIFICATION WORKER Body Mass Index 30.27 04/26/2024 2:34 PM FAT PURIFICATION WORKER Plan of Treatment Health Maintenance Due Date Last Done Comments Colon Cancer Screening-Colonoscopy 1950 Fall Risk Assessment 1950 Hepatitis C Screening 1950 Hepatitis B Screening 07/01/1967 Zoster Vaccine (1 of 2) 07/01/1999 Abdominal Aortic Aneurysm (A AA) Screen 2014 Well Visit 65+ 2014 Depression Screening 08/28/2019 08/27/2018, 08/28/19 Pneumococcal vaccine 65+ (2 of 2 - PPSV23) 01/12/2022 11/17/2021, 06/12/2019, 11/19/2004 Influenza Vaccine (#1) 2023 9, 03/17/2004, 03/09/2001 DTaP/Tdap/Td Vaccine (3 - Td or Tdap) 11/18/2031 11/17/2021, 03/13/2019, 11/19/2004 Goals Goal Patient Goal Type Associated Problems Recent Progress Patient-Stated? Author Med Mgmt Goal - Patient will understand importance of following medication regimen and will take appropriate steps to maintain regimen ACO Care Management Bowen Mercer, RN Note: Problem: Medication management Interventions: - Assess barriers to medication adherence: Provide coordination of care, education and resources to address these barriers. Include SW in patient's plan of care for resources if needed. - Instruct patient to: Take each medication each day at the times indicated by using a system (list, pill box, etc.). Do not allow prescriptions to or bottles to become empty before requesting refills. Bring all medications to each office visit. Contact physician or CM if they feel they are having side effects from medications (rather than stopping them without telling anyone). Medical Devices Implanted Type Area Sales Manager [place] Device Identifier Shelf Expiration Date Model / Serial / Lot Medtronic Cardiac Rhythm Mgmt [id number] Visia Af Mri Surescan [id number] Defibrillator Cardiac - [id number] - [id number] Implanted:Qty: 1 on 09/06/2018 by Temo Mederos MD at [facility] ICD N/A: Chest Medtronic Cardiac Rhythm Mgmt 11/05/2019 [id number] / [id number] / [employer] Shantelle [id number] Synergy 3.5mm 16mm 144cm Radiopaque 1 Access Port Inflation Lumen - [id number] - [id number] Implanted:Qty: 1 on 08/28/2018 by Abdirashid Larsen MD PhD at [facility] Stent N/A: Coronary [employer] Shantelle 05/13/2020 [id number] / [id number] / [id number] [employer]ant[employer] [id number] Synergy 2.5mm 38mm 144cm Radiopaque 1 Access Port Inflation Lumen - [id number] - [id number] Implanted:Qty: 1 on 08/28/2018 by Abdirashid Larsen MD PhD at [facility] Stent N/A: Coronary [employer] Shantelle 06/06/2020 [id number] / [id number] / [id number] Icd Left: Chest Procedures Procedure Name Priority Date/Time Associated Diagnosis Comments POCT LIPID PANEL Routine 04/26/2024 4:04 PM FAT PURIFICATION WORKER Mixed hyperlipidemia TRANSTHORACIC ECHO (TTE) COMPLETE W DOPPLER/CF W CONTRAST W BUBBLE Routine 04/26/2024 1:55 PM FAT PURIFICATION WORKER Ischemic cardiomyopathy Mixed hyperlipidemia Coronary artery disease involving yomba shoshone coronary artery of yomba shoshone heart without angina pectoris 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 Chronic HFrEF (heart failure with reduced ejection fraction) (CMS/HCC) ([facility]) from Last 3 Months Results * POCT lipid panel (04/26/2024 4:04 PM FAT PURIFICATION WORKER) Cholesterol, POC 114 mg/dL Comment:GLU = 128 HDL, POC <15 mg/dL Triglycerides, POC 112 mg/dL LDL Cholesterol POC 76 mg/dL Chol/HDL Ratio, POC n/a Non-HDL Cholesterol, POC n/a mg/dL Cholesterol Total, POC 114 mg/dL Capillary blood 04/26/2024 4 :04 PM FAT PURIFICATION WORKER Deepa Hurd MD POINT OF CARE TEST ORDMian BRYAN Final Result * TRANSTHORACIC ECHO (TTE) COMPLETE W DOPPLER/CF W CONTRAST W BUBBLE (04/26/2024 1:55 PM FAT PURIFICATION WORKER) Anatomical Region Laterality Modality Ultrasound 04/26/2024 1:03 PM FAT PURIFICATION WORKER Narrative 04/26/2024 3:21 PM FAT PURIFICATION WORKER [facility] Cardiology [address] [facility] [address], [place] [address] [address] [facility] [address], [place] [address] P:[phone] P:[phone] Echocardiographic Report Patient Name: LAMONT BUSTILLO Radha : 1950 Study Date: 04/26/2024 1:03:44 PM Gender: M Tech: Location: [facility] Provider: DEEPA HURD Height(Cm): 180 BSA: 2.23 Weight(Kg): 99.3 Heart Rate: 99 BP: 128 / 78 Quality: Definity contrast agent used to enhance endocardial border definition Order Provider: DEEPA HURD PROCEDURES: Echocardiographic Report: Transthoracic echocardiogram with 2D, M-Mode, color Doppler/color flow examination with saline contrast study and Definity contrast. INDICATIONS: I25.5 Ischemic cardiomyopathy, E78.2 Mixed hyperlipidemia, I25.10 Atherosclerotic heart disease of yomba shoshone coronary artery without angina pectoris, Z95.810 Presence of automatic (implantable) cardiac defibrillator, and I50.22 Chronic systolic (congestive) heart failure. MEASUREMENTS: 2D/MM Value Range Doppler Value Range EF Mod BP 20 % [ 52 - 72 ] AV Mean PG 4 mmHg EF Teich MM 20 % [ 52 - 72 ] AV Peak Justino 1.39 m/s [ 1.00 - 1.70 ] Estimated EF 20-25 % AV Peak PG 8 mmHg LVIDd 2D 7.40 cm [ 4.20 - 5.80 ] AV VTI 21.78 cm LVIDd MM 7.57 cm [ 4.20 - 5.80 ] LVOT Peak Justino 1.07 m/s [ 0.70 - 1.10 ] LVIDs 2D 6.53 cm [ 2.50 - 4.00 ] LVOT VTI 20.17 cm LVIDs MM 6.85 cm [ 2.50 - 4.00 ] MV E Peak Justino 0.45 m/s [ 0.60 - 1.30 ] LVPWd MM 0.82 cm [ 0.60 - 1.00 ] MV A Peak Justino 0.73 m/s [ 1.00 - 1.20 ] IVSd 2D 1.09 cm [ 0.60 - 1.00 ] MV Decel Time 76 msec [ 104 - 258 ] IVSd MM 0.89 cm [ 0.60 - 1.00 ] PV Peak Justino 0.86 m/s [ 0.40 - 0.80 ] LA Dimension MM 4.49 cm [ 3.00 - 4.00 ] TR Peak Justino 2.64 m/s [ 1.00 - 2.80 ] AoR Diam MM 3.87 cm [ 3.10 - 3.70 ] TR Peak PG 28 mmHg LA Volume Index 37 cc/m2 [ 16 - 34 ] RVSP 36.00 mmHg [ 10.00 - 36.00 ] ACS MM 1.68 cm [ 1.50 - 2.60 ] E` 0.06 m/s E/E` 8 2D/MM Value Range Doppler Value Range - FINDINGS: Interpretation Site: Exam was interpreted at [facility]. Left Ventricle: Definity contrast agent used to visually enhance endocardial wall motion and contractility. Left ventricular wall thickness upper limits of normal. Severe enlargement of left ventricle cavity. Severe global left ventricular systolic dysfunction. Impaired diastolic relaxation Grade I. Ejection fraction is measured at 20 %. Ejection Fraction is visually estimated to be 20-25 %. Right Ventricle: Normal right ventricular size. Normal right ventricular systolic function. Linear artifact in right ventricle suggestive of catheter(s), pacemaker lead(s), or ICD lead(s). Left Atrium: There is mild enlargement of left atrium. Right Atrium: The right atrium is normal in size. Linear artifact in right atrium suggestive of catheter(s), pacemaker lead(s), or ICD lead(s). Atrial Septum: Normal atrial septum. Saline contrast study performed without evidence of right to left shunt. Mitral Valve: Mild mitral valve regurgitation. Aortic Valve: Aortic valve not well visualized. No evidence of hemodynamically significant aortic stenosis by Doppler. No aortic regurgitation. Tricuspid Valve: Estimated peak RVSP is 31 mmHg. Mild tricuspid regurgitation. Pulmonic Valve: Pulmonic valve not well visualized. Trivial regurgitation in the pulmonic valve. Pericardium: Normal pericardium with no significant pericardial effusion. Aorta: Normal aortic root. IVC: Normal size and normal respiratory collapse consistent with normal right atrial pressure (<5 mmHg). CONCLUSIONS: Left ventricular wall thickness upper limits of normal. Severe enlargement of left ventricle cavity. Severe global left ventricular systolic dysfunction. Impaired diastolic relaxation Grade I. Ejection fraction is measured at 20 %. Ejection Fraction is visually estimated to be 20-25 %. Normal right ventricular size. Normal right ventricular systolic function. There is mild enlargement of left atrium. Mild mitral valve regurgitation. Estimated peak RVSP is 31 mmHg. Mild tricuspid regurgitation. Electronically Signed By: Deepa Hurd MD 04/26/2024 3:20:39 PM FAT PURIFICATION WORKER 20-25 Procedure Note Deepa Hurd MD - 04/26/2024 [facility] Cardiology [address] [facility] [address], [place] [address] [address] [facility] [address], [place] [address] P:[phone] P:[phone] Echocardiographic Report Patient Name: LAMONT BUSTILLO D : 1950 Study Date: 04/26/2024 1:03:44 PM Gender: M Tech: Location: [place] Ref Provider: DEEPA HURD Height(Cm): 180 BSA: 2.23 Weight(Kg): 99.3 Heart Rate: 99 BP: 128 / 78 Quality: Definity contrast agent used to enhance endocardial borderdefinition Order Provider: DEEPA HURD PROCEDURES: Echocardiographic Report: Transthoracic echocardiogram with 2D, M-Mode, color Doppler/color flowexamination with saline contrast study and Definity contrast. INDICATIONS: I25.5 Ischemic cardiomyopathy, E78.2 Mixed hyperlipidemia, I25.10Atherosclerotic heart disease of yomba shoshone coronary artery without angina pectoris, Z95.810Presence of automatic (implantable) cardiac defibrillator, and I50.22 Chronic systolic(congestive) heart failure. MEASUREMENTS: 2D/MM Value Range Doppler ValueRange EF Mod BP 20 % [ 52 - 72 ] AV Mean PG 4mmHg EF Teich MM 20 % [ 52 - 72 ] AV Peak Justino 1.39m/s [ 1.00 - 1.70 ] Estimated EF 20-25 % AV Peak PG 8mmHg LVIDd 2D 7.40 cm [ 4.20 - 5.80 ] AV VTI 21.78cm LVIDd MM 7.57 cm [ 4.20 - 5.80 ] LVOT Peak Justino 1.07m/s [ 0.70 - 1.10 ] LVIDs 2D 6.53 cm [ 2.50 - 4.00 ] LVOT VTI 20.17cm LVIDs MM 6.85 cm [ 2.50 - 4.00 ] MV E Peak Justino 0.45m/s [ 0.60 - 1.30 ] LVPWd MM 0.82 cm [ 0.60 - 1.00 ] MV A Peak Justino 0.73m/s [ 1.00 - 1.20 ] IVSd 2D 1.09 cm [ 0.60 - 1.00 ] MV Decel Time 76 msec[ 104 - 258 ] IVSd MM 0.89 cm [ 0.60 - 1.00 ] PV Peak Justino 0.86m/s [ 0.40 - 0.80 ] LA Dimension MM 4.49 cm [ 3.00 - 4.00 ] TR Peak Justino 2.64m/s [ 1.00 - 2.80 ] AoR Diam MM 3.87 cm [ 3.10 - 3.70 ] TR Peak PG 28mmHg LA Volume Index 37 cc/m2 [ 16 - 34 ] RVSP 36.00mmHg [ 10.00 - 36.00 ] ACS MM 1.68 cm [ 1.50 - 2.60 ] E` 0.06m/s E/E` 8 2D/MM Value Range Doppler ValueRange - FINDINGS: Interpretation Site: Exam was interpreted at [facility]. Left Ventricle: Definity contrast agent used to visually enhance endocardial wall motionand contractility. Left ventricular wall thickness upper limits of normal.Severe enlargement of left ventricle cavity. Severe global left ventricular systolicdysfunction. Impaired diastolic relaxation Grade I. Ejection fraction is measured at 20 %.Ejection Fraction is visually estimated to be 20-25 %. Right Ventricle: Normal right ventricular size. Normal right ventricular systolic function.Linear artifact in right ventricle suggestive of catheter(s), pacemaker lead(s),or ICD lead(s). Left Atrium: There is mild enlargement of left atrium. Right Atrium: The right atrium is normal in size. Linear artifact in right atriumsuggestive of catheter(s), pacemaker lead(s), or ICD lead(s). Atrial Septum: Normal atrial septum. Saline contrast study performed without evidence ofright to left shunt. Mitral Valve: Mild mitral valve regurgitation. Aortic Valve: Aortic valve not well visualized. No evidence of hemodynamicallysignificant aortic stenosis by Doppler. No aortic regurgitation. Tricuspid Valve: Estimated peak RVSP is 31 mmHg. Mild tricuspid regurgitation. Pulmonic Valve: Pulmonic valve not well visualized. Trivial regurgitation in the pulmonicvalve. Pericardium: Normal pericardium with no significant pericardial effusion. Aorta: Normal aortic root. IVC: Normal size and normal respiratory collapse consistent with normal rightatrial pressure (<5 mmHg). CONCLUSIONS: Left ventricular wall thickness upper limits of normal. Severe enlargementof left ventricle cavity. Severe global left ventricular systolic dysfunction.Impaired diastolic relaxation Grade I. Ejection fraction is measured at 20 %. EjectionFraction is visually estimated to be 20-25 %. Normal right ventricular size. Normal right ventricular systolicfunction. There is mild enlargement of left atrium. Mild mitral valve regurgitation. Estimated peak RVSP is 31 mmHg. Mild tricuspid regurgitation. Electronically Signed By: Deepa Hurd MD 04/26/2024 3:20:39 PM FAT PURIFICATION WORKER 20-25 Deepa Hurd MD CV ECHO PROCEDURES Alecia l Result from Last 3 Months Insurance [facility] INSURANCE [facility] MEDICARE [facility]ICARE [facility] INSURANCE Advance Directives For more information, please contact: [phone] * Full Code (Latest Code Status on File) Date Activated Date Inactivated Comments 08/27/2018 8:59 PM 08/29/2018 10:12 PM Care Teams Monorail Car Operator Relationship Specialty Start Date End Date Vika Landa PA [address] [place] [address] PCP - General 10/14/21 No, Physician 08/27/18
--- OUTSIDE RECORDS SUMMARY | 2024-06-18 13:13 | XMS_ITS | Data Portability ---
Author Organization [place] - [facility], Main Office Address [address] [place] [address] Assessment No assessment recorded. Plan of Treatment Reminders Order Date Submit Date Provider Last Modified By Organization Details Last Modified Time Details Appointments None recorded. Lab noninvasiv e colorectal cancer DNA + occult blood screening, QL, stool 2023 [facility] (Cologuard Orders Only), [address], [address], [place], [address], 07:34:56 hepatitis C virus Ab, serum 2023 [facility] (Lab), [address] [place], [address], 4 23:40:21 lipid panel, serum 2023 [facility] (Lab), [address] [place], [address], 4 23:40:22 TSH, serum or plasma 2023 [facility] (Lab), [address] [place], [address], 4 23:40:22 CBC w/ auto diff 2023 [facility] (Lab), [address] [place], [address], 4 23:40:22 CMP, serum or plasma 2023 [facility] (Lab), [address] [place], [address], 4 23:40:21 unlisted lab - hemoglobin A1C 496 [facility]23 [facility] [address] [place], [address], 4 07:34:56 lipid panel, serum [address] (Lab), [address] [place], [address], 4 09:56:00 PSA, serum or plasma [address] (Lab), [address] [place], [address], 4 09:56:00 CMP, serum or plasma [address] (Lab), [address] [place], [address], 4 09:56:00 CBC w/ auto diff [address] (Lab), [address] [place], [address], 4 09:56:00 glycohemog lobin, total, blood [address] (Lab), [address] [place], [address], 4 09:56:00 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 2023 024 RITCHIE Guido, [address] [place], [address], Ph [phone] 13:49:50 Procedures None recorded. Surgeries None recorded. Imaging None recorded. Medication Orders clotrimazo le-betamet hasone 1 %-0.05 % topical cream 2023 024 [facility] [address] [facility], [place], [address], 11:00:12 Patient TargetsNo targets recorded. Patient Instructions Encounter Date Encounter Id Patient Instructions Last Modified By Organization Details Last Modified Time 08/25/2023 [id number] dementia rating scale-2* [email or web address] Not available 08/28/2023 08:49:46 multi-dimensiona l health assessment questionnaire* [email or web address] Not available 08/28/2023 08:49:50 care plan* Not available 08/24 16:34:59 advance care planning: care instructions Not available 08/25/2023 16:34:59 advance directiv es: care instructions Not available 08/25/2023 16:34:58 [place] Advance Directives Not available 08/25/2023 16:34:59 [facility] and Screening Recommendations Advance Directives - Do you have one? No Advance Directives - Do we have your advance directive on file in your health record? Primary Prevention/Interven tion (prevents or decreases the chance of common diseases from occurring) Smoking Risk: Non Smoker Alcohol Misuse Screening: Negative Weight: Appropriate Overwei ght Physical activity: Appropriate physical activity Nutrition: Good Average Fall Risk (screened today): Low Vaccines Pneumococcal: Ordered Recommended today Recommended today, but you have declined Influenza: Ordered Recommended today Recommended today, but you have declined Chronic Disease Risks Stroke: Low Risk Intermediate Risk I have no recommendations Act mat diagnosis, Continue current treatment plan Heart Attack: Low risk Intermediate Risk I have no recommendations Act mat diagnosis, Continue current treatment plan Clogging of the Arteries: Low risk I have no recommendations Act mat diagnosis, Continue current treatment plan Diabetes: Low Risk Active diagnosis, Continue current treatment plan Secondary Prevention/Interven tion (detects treatable diseases before they may cause symptoms, disability, or ) Prostate Cancer Screening: No PSA screening necessary Colon Cancer Screening: No screening necessary Date Screening Last Performed: Eye Disease Screening: Dementia Risk: Low Depression Screening: Negative Active diagnosis, Continue current treatment plan Not available 08/25/2023 16:31:18 03/27/2024 [id number] Follow up in 6 months Prescriptions sent to pharmacy Obtain labs Tests: Referral: Dr. GuidoBttqfc-jwyrquai-ozt l trim and left foot dryness/rash Recommend: Follow up with [facility] Pneumococcal vaccine Shingles vaccine [email or web address] Not available 03/27/2024 11:12:08 Reason for Referral [employer] Referral for Prudence a pedis Please call patient to schedule.Note from provider: Needs nail trims and has dry, pruritic rash to left foot, history of vein removal for heart surgery in left. Referring Physician: Veronica Infante, Internal Medicine, Encounter Date: 03/27/2024 Results Created Date Observation Date Name Description Value Unit Range Abnormal Flag Note LastModifiedBy Organization Detail LastModifiedTime 11/18/19 22 11/17/2021 urina lysis , dipst ick Color Dark Yellow Not Available [address] , [place], [address], 11/17/2021 14:53:57 11/18/19 22 11/17/2021 urina lysis , dipst ick Appearance Slight ly Cloudy Not Available [address], [place], [address], 11/17/2021 14:53:57 11/18/19 22 11/17/2021 urina lysis , dipst ick Glucose (reference range: negative mg/dl) Negati ve Not Available [address] , [place], [address], 11/17/2021 14:53:57 11/18/19 22 11/17/2021 urina lysis , dipst ick Bilirubin (reference range: negative mg/dl) Negati ve Not Available [address], [place], [address], 11/17/2021 14:53:57 11/18/19 22 11/17/2021 urina lysis , dipst ick Ketone (reference range: negative mg/dl) Negati ve Not Available [address], [place], [address], 11/17/2021 14:53:57 11/18/19 22 11/17/2021 urina lysis , dipst ick Specific Horace (reference range: 1.005-1.030) 1.020 Not Available [address] , [place], [address], 11/17/2021 14:53:57 11/18/19 22 11/17/2021 urina lysis , dipst ick Blood (reference range: negative Dwain/ l) Negati ve Not Available [address], [place], [address], 11/17/2021 14:53:57 11/18/19 22 11/17/2021 urina lysis , dipst ick pH (reference range: 5-7) 5.0 Not Available [address], [place], [address], 11/17/2021 14:53:57 11/18/19 22 11/17/2021 urina lysis , dipst ick Protein (reference range: negative mg/dl) Negati ve Not Available [address], [place], [address], 11/17/2021 14:53:57 11/18/19 22 11/17/2021 urina lysis , dipst ick Urobilinogen (reference range: 0.2-1 mg/dl) 0.2 Not Available [address] , [place], [address], 11/17/2021 14:53:57 11/18/19 22 11/17/2021 urina lysis , dipst ick Nitrite (reference rage: negative mg/dl) negati ve Not Available [address] , [place], [address], 11/17/2021 14:53:57 11/18/19 22 11/17/2021 urina lysis , dipst ick Leukocytes (reference range: negative dannielle/ l) Negati ve Not Available [address] , [place], [address], 11/17/2021 14:53:57 09/09/19 22 09/08/2021 NM, lung scan, quant itati ve diffe renti al pulmo nary perfu ruperto No observ ation record ed. [id number] [facility], [place], [address], 06/23/2022 00:59:34 11/06/19 22 11/05/2021 LDCT, chest , for lung cance r naveedkylie peoples No observ ation record ed. [id number] [address], [place], [address], 06/23/2022 00:59:34 Result Notes None recorded. Problems Name Problem SNOMED Code Status Onset Date Resolution Date Notes Provider Name and Address Organization Details Recorded Time Chronic obstructive pulmonary disease 04752730 Active 2021 Veronica Infante APRN [address], [address], [place], [address], [facility] 09:26:15 Coronary atherosclerosi s 639620086 Active 2021 Veronica Infante APRN [address], [address], [place], [address], [facility] 4 09:26:18 Hyperlipidemia 35274827 Active 2021 Veronica Infante APRN [address], [address], [place], [address], [facility] 4 09:26:21 Essential hypertension 98147293 Active 2021 Veronica Infante APRN [address], [address], [place], [address], [facility] 4 09:26:19 Upper respiratory infection 36992868 Active 2023 PIETRO Shaw [address], [address], [place], [address], [facility] [employer] [facility] 4 11:33:56 Tinea pedis 9564194 Active 2023 Veronica Infante APRN [address], [address], [place], [address], [facility] [employer] [facility] 4 10:54:46 Abnormal heart beat 770568380 Active 2023 Veronica Infante APRN [address], [address], [place], [address], [facility] [employer] [facility] 4 11:08:08 Erythrocytosis 000046634 Active 2023 Veronica Infante APRN [address], [address], [place], [address], [facility] [employer] [facility] 16:30:58 Problem Notes None recorded. Procedures Surgical History Date Name Laterality Status Provider Name and Address Organization Details Recorded Time Medicare Wellness CPT Code, subsequent completed Luma Johns RN [facility] [employer] [facility] 08/25/2023 16:00:56 Imaging Results Imaging Date Name Status LastModified by Organization Details LastModified Time 09/08/2021 NM, lung scan, quantitative differential pulmonary perfusion completed [id number] [address], [address], 06/23/2022 00:59:34 11/05/2021 LDCT, chest, for lung cancer screening completed [id number] [address], [place], [address], 06/23/2022 00:59:34 Procedure Notes None recorded. Medical Equipment None Reported. Allergies No known drug allergies Medications Name Sig Start Date Stop Date Status Note LastModified by Organization Details LastModified Time furosemide 40 mg tablet TAKE 1 TABLET BY MOUTH ONCE DAILY active Not Available Not Available No t Available albuterol sulfate 0.63 mg/3 mL solution for nebulizatio n INHALE THE CONTENTS OF 1 VIAL VIA NEBULIZER EVERY 4-6 HOURS NEEDED active Not Available Not Available No t Available atorvastati n 80 mg tablet Take 1 tablet by mouth once daily 2023 active Not Available Not Available Not Avai lable carvedilol 25 mg tablet Take 1 tablet twice a day by oral route with meals. 11/17 completed Not Available Not Available Not Available carvedilol 6.25 mg tablet TAKE 1 TABLET BY MOUTH TWICE DAILY active Not Available Not Available No t Available prednisone 10 mg tablet Take 2 tablets every day by oral route for 5 days. 03/19 completed Not Available Not Available Not Available carvedilol 12.5 mg tablet TAKE 1 TABLET BY MOUTH TWICE DAILY WITH MEALS 03/19 completed Not Available Not Available Not Available lisinopril 20 mg tablet Take 1 tablet every day by oral route. 11/17 completed Not Available Not Available Not Available Zithromax Z-Kb 250 mg tablet TAKE 2 TABLETS (500 MG) BY ORAL ROUTE ONCE DAILY FOR 1 DAY THEN 1 TABLET (250 MG) BY ORAL ROUTE ONCE DAILY FOR 4 DAYS 03/19 completed Not Available Not Available Not Available clopidogrel 75 mg tablet TAKE 1 TABLET BY MOUTH ONCE DAILY . APPOINTME NT REQUIRED FOR FUTURE REFILLS 2023 active Not Available Not Available Not Avai lable aspirin 81 mg tablet,vincenzo yed release Take 1 tablet every day by oral route. active Not Available Not Available No t Available spironolact one 25 mg tablet Take 1 tablet by mouth once daily for 90 days 2023 active Not Available Not Available Not Avai lable alprazolam 0.5 mg tablet TAKE 1 TABLET BY MOUTH THREE TIMES DAILY NEEDED 08/24 completed Not Available Not Available Not Available clotrimazol e-betametha sone 1 %-0.05 % topical cream APPLY TO THE AFFECTED AND SURROUNDI NG AREAS OF SKIN BY TOPICAL ROUTE 2 TIMES PER DAY IN THE MORNING AND EVENING FOR 2 WEEKS 2023 active Not Available Not Available Not Avai lable lisinopril 10 mg tablet Take 1 tablet every day by oral route as directed, for hypertens ion. 2023 active Not Available Not Available Not Avai lable lisinopril 5 mg tablet TAKE 1 TABLET BY MOUTH IN THE MORNING 03/19 completed Not Available Not Available Not Available buspirone 15 mg tablet TAKE 1 TABLET BY MOUTH EVERY 12 HOURS 08/24 completed Not Available Not Available Not Available atorvastati n 09/01 completed Not Available Not Available Not Available carvedilol 09/01 completed Not Available Not Available Not Available lisinopril 09/01 completed Not Available Not Available Not Available Asprin Ec Low Dose 09/01 completed Not Available Not Available Not Available ProAir HFA 90 mcg/actuati on aerosol inhaler Inhale 2 puffs every 4 hours by inhalatio n route. 2021 active Not Available Not Available Not Avai lable Jardiance 10 mg tablet Take 1 tablet every day by oral route. 2021 active Not Available Not Available Not Avai lable Spiriva Respimat 2.5 mcg/actuati on solution for inhalation Inhale 2 puffs every day by inhalatio n route. active Not Available Not Available No t Available Proair Digihaler 09/01 completed Not Available Not Available Not Available aspirin 81 mg capsule Take 1 capsule every day by oral route. 09/01 completed Not Available Not Available Not Available Vitals Date Recorded Oxygen saturation Oxygen saturation in Arterial blood by Pulse oximetry Heart rate Body temperature Body weight Systolic blood pressure Diastolic blood pressure Provider Name and Address Organization Details Last Updated DateTime 2 97 % 97 % 110 /min 97.1 [degF] 87400.7 7 g 128 mm[Hg] 74 mm[Hg] Not Available [facility] 3 00:57:32 Date Recorded Oxygen saturation Oxygen saturation in Arterial blood by Pulse oximetry Heart rate Body temperature Body weight Systolic blood pressure Diastolic blood pressure Provider Name and Address Organization Details Last Updated DateTime 2 99.01 % 99.01 % 78 /min 98.1 [degF] 01952.2 1 g 146 mm[Hg] 80 mm[Hg] Not Available [facility] 3 00:57:32 Date Recorded Body weight Body mass index (BMI) Body height Body temperature Heart rate Oxygen saturation Oxygen saturation in Arterial blood by Pulse oximetry Systolic blood pressure Diastolic blood pressure Provider Name and Address Organization Details Last Updated DateTime 4 56549.5 4 g 31.1 kg/m2 177.8 cm 96.8 [degF] 91 /min 97 % 97 % 130 mm[Hg] 92 mm[Hg] LIDIA Beltran [facility] [employer] 4 16:07:10 Date Recorded Body height Body mass index (BMI) Body weight Body temperature Heart rate Oxygen saturation Oxygen saturation in Arterial blood by Pulse oximetry Systolic blood pressure Diastolic blood pressure Provider Name and Address Organization Details Last Updated DateTime 4 177.8 cm 31.1 kg/m2 29960.5 4 g 96.8 [degF] 112 /min 99 % 99 % 142 mm[Hg] 86 mm[Hg] LIDIA Beltran [facility] [employer] [facility] 4 10:43:12 Social History Question Answer Notes LastModified by Organizat ion Details LastModified Time Tobacco Smoking Status Never Smoker Not Available [facility] 06/23/2022 00:56:56 In The 14 Days Before Symptom Onset, Have You Had Close Contact With A Laboratory-confirm ed COVID-19 While That Case Was Ill? No [id number] Information not available 06/23/2022 In The 14 Days Before Symptom Onset, Have You Had Close Contact With A Person Who Is Under Investigation For COVID-19 While That Person Was Ill? No [id number] Information not available 06/23/2022 What Type Of Diet Are You Following? REGULAR [id number] Information not available 06/23/2022 Do You Have Any Dietary Restrictions? No [id number] Information not available 06/23/2022 Sex: Unknown Functional Status Question Answer Note LastModified by Organizat ion Details LastModified Time What is your exercise level? None [id number] Information not available 06/23/2022 Mental Status None recorded. Family History Relationship Description Onset Age of this Age Resolved Age Notes LastModified by Organization Details LastModified Time Father Hypertensive disorder [id number] Not available 06/23/2022 00:57:05 Mother Family history of malignant neoplasm [id number] Not available 06/23/2022 00:57:05 Medical History No medical history recorded. Immunizations Vaccine Type Date Status Note Provider Nam e and Address Organization Details Recorded Time Tdap 2 completed Not Available [facility] 06/23/2022 00:59:26 Pneumococcal conjugate PCV 13 2 completed Not Available [facility] 06/23/2022 00:59:26 Tdap 9 completed Veronica Infante APRN [address] [facility], [address], [place], [address], [employer] 03/19/2024 09:25:06 Pneumococcal conjugate PCV 13 0 completed Veronica Infante APRN [address] [facility] [facility], [facility] [address], [place], [address], [employer] 03/19/2024 09:25:07 Influenza, high-dose, trivalent, PF 9 completed Veronica Infante APRN [address] [facility], [address], [place], [address], [employer] 03/19/2024 09:25:07 Past Encounters Encounter ID Performer Location Encounter Start Date Encounter Closed Date Diagnosis/Indication Diagnosis SNOMED-CT Code Diagnosis ICD10 Code Diagnosis Note [id number] [facility] Primary Care [facility] [address] [place] [address] 09/01/2021 00:00:00 09/01/2021 14:18:30 [id number] [facility] [place] [address] [place] [address] 11/17/2021 00:00:00 11/17/2021 16:11:06 [id number] PIETRO Goddard [facility] Primary Care [facility] [address] [place] [address] 08/25/2023 15:57:20 08/25/2023 16:53:01 Adult health examination 238932542 Z00.00 Screening for disorder 202406686 Z13.9 Hyperlipid emia screening 644875766 Z13.220 Essential hypertension 35963655 I10 Screening for malignant neoplasm of prostate 372175535 Z12.5 Diabetes m ellitus screening 373569305 Z13.1 [id number] Veronica Infante APRN [facility] [place] [facility] [address] [place] [address] 03/27/2024 10:18:15 03/27/2024 11:28:48 Hyperlipidemia 51258859 E78.5 Hepatitis C screening 41 8671299 Z11.59 Screening for malignant neoplasm of colon 477815814 Z12.11 Tinea pedis 7244582 B35. 3 Chronic ob structive pulmonary disease 53886282 J44.9 Refuses pulmonolog ist. Health Concerns Section Related Observation LastModified by Organization Detai ls LastModified Time None Recorded Concern Status LastModified by Organization Details LastModified Time None Recorded Advance Directives Directive None Recorded Payers Encounter Date Sequence Insurance Name Policy Number Policy Paul Covered Member ID Paul Member ID Guarantor Name 08/25/2023 1 [place] Lamont Bustillo [id number] Lamont Bustillo 08/25/2023 2 [facility] IONE (MEDICARE SUPPLEMENT) Lamont Bustillo [id number] Lamont Bustillo 03/27/2024 1 [place] Lamont Bustillo [id number] Lamont Bustillo 03/27/2024 2 [facility] IN[employer]MN[facility] IONE (MEDICARE SUPPLEMENT) Lamont Bustillo [id number] Lamont Radha Bustillo Notes Date Note Type Note Provider Name and Address Organization Details Recorded Time 08/25/2023 text/html pt is here for medicare wellness PIETRO Goddard [address], [facility] [address], [place], [address], [facility] [employer] 08/29/2023 08:09:24 03/27/2024 text/html Lamont presents today to establish care. He states that he has bruising to his arms. He also states that he has a rash area to his foot that is dry and itching. 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 Veronica Infante APRN [address], [facility] [address], [place], [address], [employer] 03/27/2024 11:16:36
--- OUTSIDE RECORDS SUMMARY | 2024-06-18 13:13 | XMS_ITS | Referral Summary ---
Author Organization [facility] [address] [facility] Address [address] [place] [address] Care Team Providers Care Family And Marriage Counsellor Name Role Phone No, Physician Unavailable Vika Landa Primary Care Provider [phone] Encounters Date Type Department Care Team Description 05/28/2024 Telephone [facility] [address] [place] [address] [place] [phone] Deepa Hudr MD 04/26/2024 Telephone [facility] [address] [place] [address] [place] [phone] Deepa Hurd MD 04/26/2024 1:00 PM WAX BALL MOLDER Ancillary Procedure [facility] [address] [place] [address] [address] [place] [phone] Ischemic cardiomyopathy; Mixed hyperlipidemia; Coronary artery disease involving alturas coronary artery of alturas heart without angina pectoris; 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; Chronic HFrEF (heart failure with reduced ejection fraction) (CMS/HCC) ([facility]) 04/26/2024 2:45 PM WAX BALL MOLDER Office Visit [facility] [address] [place] [address] [address] [place] [phone] Deepa Hurd MD Chronic HFrEF (heart failure with reduced ejection fraction) (CMS/HCC) (HCC) (Primary Dx); Coronary artery disease involving alturas coronary artery of alturas heart without angina pectoris; Hx of CABG; History of percutaneous coronary intervention; Ischemic cardiomyopathy; 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; Mixed hyperlipidemia; Primary hypertension from Last 3 Months Allergies No known active allergies Medications albuterol 0.63 mg/3 mL nebulizer solutionIndication s:Shortness of breath Take 3 mL (0.63 mg total) by nebulization every 6 (six) hours as needed for wheezing 75 mL 3 10/15/19 21 Active albuterol HFA (ProAir HFA) 90 mcg/actuation inhalerIndications :Chronic obstructive pulmonary disease, unspecified COPD type ([facility]) Inhale 2 puffs every 4 (four) hours as needed for wheezing or shortness of breath 3 Inhaler 3 10/15/19 21 Active aspirin 81 mg enteric coated tabletIndications: Coronary artery disease involving alturas coronary artery of alturas heart with angina pectoris ([facility]) Take 1 tablet (81 mg total) by mouth daily 90 tablet 3 10/15/19 21 Active atorvastatin (LIPITOR) 80 mg tabletIndications: Coronary artery disease involving alturas coronary artery of alturas heart with angina pectoris ([facility]) Take 1 tablet (80 mg total) by [...] HFrEF (heart failure with reduced ejection fraction) ([facility]) 01/20/2022 NSVT (nonsustained ventricular tachycardia) 12/24 Sensorineural hearing loss (SNHL) of both ears 0 10/09/2018 ICD (implantable cardioverter-defibrillator) in place 09/19/2018 Overview (09/24/2018): Medtronic Single ICD. Dx; ICM. Gen change 09/06/2018-Noheria, chronic lead 03/19/2007. Carelink remote monitoring, office device checks Q1 yr. Ischemic cardiomyopathy 08/28/2018 Assessment & Plan (08/28/2018 1:49 AM CDT): s/p ICD placement (Medtronic). Follow with Film Processing Shift Supervisor Dr. Palomo at [facility]. ECHO in 02/2018 with reports of severe [...] 1998 ) and stentings. Known graft and alturas artery occlusive disease. Most recent NSTEMI in 02/2018 managed medically without intervention. - Increasing atorvastatin from 20mg to 80mg given apparent worsening of CAD occlusive disease of alturas coronaries. Continue on Aspirin 81mg QD History [...] stent placement 09/19/2018 10/19/2020 Pseudoaneurysm following procedure ([facility]) 9 10/19/2020 Encounter due to AICD at end of battery life 9 10/19/2020 Overview (08/30/2018): Added automatically from request for surgery NSTEMI (non-ST elevated myoc ardial infarction) ([facility]) 08/28/2018 10/19/2020 Assessment & Plan (08/28/2018 1:45 [...] determine need for possible LHC and stenting Immunizations Immunization Administration Dates Next Due Influenza, Trivalent, High D ose, Split, Preservative Free, Intramuscular 03/13/2019 Pneumococcal Conjugate PCV 13 06/12/2019 Tdap 03/13/2019 Social History Tobacco Use Types Packs/Day Years [...] on file Legal Sex Male 2:13 AM WAX BALL MOLDER Gender Identity Not on file Sexual Orientation Not on file Last Filed Vital Signs Vital Sign Reading Time Taken Comments Blood Pressure 118/74 04/26/2024 2:34 PM WAX BALL MOLDER Pulse 75 04/26/2024 2:34 PM WAX BALL MOLDER Temperature 36.5 C (97.7 F) 06/12/2019 10:19 AM WAX BALL MOLDER Respiratory Rate 18 06/12/2019 10:19 AM WAX BALL MOLDER Oxygen Saturation 100% 04/26/2024 2:34 PM WAX BALL MOLDER Inhaled Oxygen Concentration - - Weight 98.4 kg (217 lb) 04/26/2024 2:34 PM WAX BALL MOLDER Height 180.3 cm (5' 11 ) 04/26/2024 2:34 PM WAX BALL MOLDER Body Mass Index 30.27 04/26/2024 2:34 PM WAX BALL MOLDER Plan of Treatment Not on file Goals Goal Patient Goal Type Associated Problems [...] telling anyone). Medical Devices Implanted Type Area Acid Adjuster Device Identifier Shelf Expiration Date Model / Serial / Lot Medtronic Cardiac Rhythm Mgmt [id number] Visia Af Mri Surescan [id number] Defibrillator Cardiac - [id number] - [id number] Implanted:Qty: 1 on 09/06/2018 by Temo Mederos MD at [facility] ICD N/A: Chest Medtronic Cardiac Rhythm Mgmt 11/05/2019 [id number] / [id number] / [employer] [id number] Synergy 3.5mm 16mm 144cm Radiopaque 1 Access Port Inflation Lumen - [id number] - [id number] Implanted:Qty: 1 on 08/28/2018 by Abdirashid Larsen MD PhD at [facility] Stent N/A: Coronary [employer] 05/13/2020 [id number] / [id number] / [id number] [employer] [id number] Synergy 2.5mm 38mm 144cm Radiopaque 1 Access Port Inflation Lumen - [id number] - [id number] Implanted:Qty: 1 on 08/28/2018 by Abdirashid Larsen MD PhD at [facility] Stent N/A: Coronary [employer] 06/06/2020 [id number] / [id number] / [id number] Icd Left: Chest Procedures Procedure Name Priority Date/Time Associated Diagnosis Comments POCT LIPID PANEL Routine 04/26/2024 4:04 PM WAX BALL MOLDER Mixed hyperlipidemia TRANSTHORACIC ECHO (TTE) COMPLETE W DOPPLER/CF W CONTRAST W BUBBLE Routine 04/26/2024 1:55 PM WAX BALL MOLDER Ischemic cardiomyopathy Mixed hyperlipidemia Coronary artery disease involving alturas coronary artery of alturas heart without angina pectoris 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 Chronic HFrEF (heart failure with reduced ejection fraction) (CMS/HCC) (HCC) from Last 3 Months Results * POCT lipid panel (04/26/2024 4:04 PM WAX BALL MOLDER) Cholesterol, POC 114 mg/dL Comment:GLU = 128 HDL, POC <15 mg/dL Triglycerides, POC 112 mg/dL LDL Cholesterol POC 76 mg/dL Chol/HDL Ratio, POC n/a Non-HDL Cholesterol, POC n/a mg/dL Cholesterol Total, POC 114 mg/dL Capillary blood 04/26/2024 4 :04 PM WAX BALL MOLDER [facility] Hurd MD POINT OF CARE TEST ORDE IRVIN Final Result * TRANSTHORACIC ECHO (TTE) COMPLETE W DOPPLER/CF W CONTRAST W BUBBLE (04/26/2024 1:55 PM WAX BALL MOLDER) Anatomical Region Laterality Modality Ultrasound 04/26/2024 1:03 PM WAX BALL MOLDER Narrative 04/26/2024 3:21 PM WAX BALL MOLDER [facility] [address] [facility] [address] [address] [address] [facility] [address], [place] [address] P:[phone] P:[phone] Echocardiographic Report Patient Name: LAMONT BUSTILLORadha : 1950 Study Date: 04/26/2024 1:03:44 PM Gender: M Tech: SW Location: [place] Ref Provider: DEEPA HURD Height(Cm): 180 BSA: 2.23 Weight(Kg): 99.3 Heart Rate: 99 BP: 128 / 78 Quality: Definity contrast agent used to enhance endocardial border definition Order Provider: DEEPA HURD PROCEDURES: Echocardiographic Report: Transthoracic echocardiogram with 2D, M-Mode, color Doppler/color flow examination with saline contrast study and Definity contrast. INDICATIONS: I25.5 Ischemic cardiomyopathy, E78.2 Mixed hyperlipidemia, I25.10 Atherosclerotic heart disease of alturas coronary artery without angina pectoris, Z95.810 Presence [...] FINDINGS: Interpretation Site: Exam was interpreted at [facility]. Left Ventricle: Definity contrast agent used to [...] By: Deepa Hurd MD 04/26/2024 3:20:39 PM WAX BALL MOLDER 20-25 Procedure Note Deepa Hurd MD - 04/26/2024 [facility] [address], [place] [address] [address], [place] [address] P:[phone] P:[phone] Echocardiographic Report Patient Name: LAMONT BUSTILLO D : 1950 Study Date: 04/26/2024 1:03:44 PM Gender: M Tech: Location: [facility] Provider: DEEPA HURD Height(Cm): 180 BSA: 2.23 Weight(Kg): 99.3 Heart Rate: 99 BP: 128 / 78 Quality: Definity contrast agent used to enhance endocardial borderdefinition Order Provider: DEEPA HURD PROCEDURES: Echocardiographic Report: Transthoracic echocardiogram with 2D, M-Mode, color Doppler/color flowexamination with saline contrast study and Definity contrast. INDICATIONS: I25.5 Ischemic cardiomyopathy, E78.2 Mixed hyperlipidemia, I25.10Atherosclerotic heart disease of alturas coronary artery without angina pectoris, Z95.810Presence of [...] FINDINGS: Interpretation Site: Exam was interpreted at [facility]. Left Ventricle: Definity contrast agent used to [...] By: Deepa Hurd MD 04/26/2024 3:20:39 PM WAX BALL MOLDER 20- Deepa Hurd MD CV ECHO PROCEDURES Alecia l Result from Last 3 Months Insurance MEDICARE [facility] INSURANCE [facility] MEDICARE [facility] MEDICARE [facility] INSURANCE Advance Directives For more information, please contact: [phone] * Full Code (Latest Code Status on File) Date Activated Date Inactivated Comments 08/27/2018 8:59 PM 08/29/2018 10:12 PM Care Teams Family And Marriage Counsellor Relationship Specialty Start Date End Date Vika aLnda PA [address] [place] [address] PCP - General 10/14/21 No, Physician 08/27/18
--- OUTSIDE RECORDS SUMMARY | 2024-06-18 13:13 | XMS_ITS | Continuity of Care Document ---
Author Name [facility] Organization [facility] Care Team Providers Care Store Worker Name Role Phone [facility] Unavailable Unavailable Problems Combined list of problems from Department of Defense and [facility] Affairs facilities. It does not include entries that were removed or entered in error. Problem Status Onset Date Problem Type Date of Resolution Comments Source Fungus, disease NEC Active 1 Condition Dec 04, 2000 Entered By: ALEXA BO Comment: typical jock itch involving inguinal area [facility] Acute myocardial infarction Inactive 9 Condition 12/04/2000 Dec 04, 2000 Entered By: ALEXA BO Comment: CABG 3 vessel post mi [facility] Acute myocardial infarction, unspecified site, episode of care unspecified (ICD- Active Condition [facility] ANGINA PECTORIS NEC/NOS Active Condition [place] [facility] COR ATHEROSCL UNSP TYP-VES Active [place] [facility] Coronary Artery Disease * (ICD-9-CM 414.9) Active Condition Mar 17 4 Entered By: GIANFRANCO VICENTE V Comment: s/p bypass surgery 2005 Entered By: ARLYN TAVERAS Comment: 1998: 1998 (BABIN-LAD, SVG-OM, SVG>RCA)Jul 06, 2005 Entered By: ARLYN TAVERAS Comment: 07/04/05: LHC/grafts. Plan PTCA prox LAD in July [facility] DIAPHRAGMATIC HERNIA Active Condition [place]) ESOPHAGEAL REFLUX Active [place] [facility] Hearing loss * (ICD-9-CM 389.9) Active Condition [facility] Hyperlipidemia * (ICD-9-CM 272.4) Active Condition [facility] Impacted cerumen * (ICD-9-CM 380.4) Active Condition [facility] Issue of Repeat Prescriptions (ICD-9-CM V68.1) Active Condition [facility] Nicotine Dependence (ICD-9-CM 305.1) Active Condition [facility] Old Myocardial Infarction (ICD-9-CM 412.) Active Condition [facility] Otitis Externa, Acute (ICD-9-CM 380.00) Active Condition [facility] Personal History of Tobacco Use (ICD-9-CM V15.82) Active Condition [facility] Postsurgical Aortocoronary Bypass Status (ICD-9-CM V45.81) Active Condition Jul 06 Entered By: ARLYN TAVERAS Comment: 1998: (BABIN-LAD, SVG-OM, SVG>RCA) [facility] Postsurgical Percutaneous Transluminal Coronary Angioplasty Status (ICD-9-CM V45 Active Condition Jul 26, 2005 Entered By: ANNA LOWERYI Comment: 07/26/05: Rotoblation/ PTCA/Cypher 2.5 X 8 stent X 1 Prox LAD [facility] S/P AICD Active Condition [facility] Medications Combined list of outpatient medications from Department of Defense and Veterans Affairs facilities.Medications provided include 1) outpatient medications from the last 15 months, and 2) patient-reported medications. Medication Details Route Status Patient Instructions Prescription Expires Prescription Number Last Dispense Date Ordering Provider Order Date Order Qty Source ASPIRIN 325MG TAB TAKE ONE TABLET BY MOUTH ONCE A DAY ORAL ACTIVE JOSE BABCOCK 2006 [facility] CARVEDILOL 25MG TAB TAKE ONE-HALF TABLET BY MOUTH TWICE A DAY ORAL ACTIVE DANIELLE DAMICO 2011 [facility] LISINOPRIL 10MG TAB TAKE ONE-HALF TABLET BY MOUTH ONCE A DAY ORAL ACTIVE DANIELLE DAMICO AMMARIE T 2011 [facility] Immunizations Combined list of available immunizations from the Department of Defense and Veterans Affairs facilities. Immunization Series Date Given Administered By Site Reaction Lot Number CVX Code Drug Proof Operator Status Comments Source PNEUMOCOCCAL, UNSPECIFIED FORMULATION 2004 109 complet ed [facility] TD(ADULT) UNSPECIFIED FORMULATION 2004 139 complet ed [facility] INFLUENZA, UNSPECIFIED FORMULATION 2003 88 complet ed [facility] FLU,3 YRS (HISTORICAL) 2000 88 complet ed [facility] Encounters Combined list of: 1) Encounters from Department of Veterans Affairs facilities going backup to the last 18 months, not all [place] inpatient encounters are included; 2) Encounters from the Department of Defense facilities going backup to 280 months. Location Location Details Encounter Type Encounter Number Reason For Visit Attending Provider ADM Date DC Date Status Disposition Source [facility] Outpatient Encounter [id number] 01/30 [facility] Social History Combined list of available smoking, tobacco, and other social history from Department of Defense and Veterans Affairs facilities. Social History Type Response Date Comment Source Tobacco smoking status NHIS CURRENT TOBACCO USER 04/14/2011 [facility] History of tobacco use TOBACCO MEDS OFFERED BUT DECLINED 04/14/2011 [facility] History of tobacco use CURRENT TOBACCO USER 08/10/2009 [facility] History of tobacco use CURRENT TOBACCO USER 05/02/2008 [facility] History of tobacco use CURRENT TOBACCO USER 03/20/2007 HE STATED HE KNOWS HE NEEDS TO STOP SMOKING AND HE IS WILLING TO TRY,HAS MORE INVOLVED CARDIAC PROBLEMS. [facility] History of tobacco use TOBACCO OFFERRED PT MEDS (PROVIDER) 01/25/2007 [facility] History of tobacco use CURRENT TOBACCO USER 01/16/2007 [facility] History of tobacco use IC/PATIENT IS SMOKER 11/28/2006 [facility] History of tobacco use CURRENT TOBACCO USER 07/01/2005 [facility] History of tobacco use CURRENT TOBACCO USER 11/19/2004 [facility] History of tobacco use CURRENT TOBACCO USER 08/19/2004 [facility] History of tobacco use CURRENT TOBACCO USER 07/19/2004 [facility] History of tobacco use CURRENT TOBACCO USER 03/17/2004 [facility] History of tobacco use CURRENT SMOKER 12/04/2000 [facility] Advance Directives List of completed, amended, or rescinded Advance Directives on record at Department of [facility] Affairs facilities. An actual copy of the Directive is not included. Date Advance Directive Provider Source 07/04/2005 ADVANCE DIRECTIVE BOBBI DUFFY IS [facility]
--- OUTSIDE RECORDS SUMMARY | 2024-06-18 13:13 | XMS_ITS | Clinical Summary ---
Author Organization [facility] Jos Christianson Address [address] [place] [address] Care Team Providers Care Couturiere Name Role Phone Unavailable Primary Care Provider Unavailabl e Allergies No known active allergies Medications carvediloL (COREG) 25 mg tablet Take 25 mg by mouth 2 times daily. 5 04/26/19 26 Active empagliflozin (JARDIANCE) 10 mg tablet Take 10 mg by mouth daily. Active furosemide (LASIX) 40 mg tablet Take 40 mg by mouth daily. 3 Active lisinopriL (PRINIVIL) 20 mg tablet Take 20 mg by mouth daily. 5 06/17/19 26 Active spironolactone (ALDACTONE) 25 mg tablet Take 25 mg by mouth daily. Active Breztri Aerosphere 160 mcg-9mcg-4.8mcg /actuation HFA aerosol inhaler Take 2 Puffs by inhalation 2 times daily. Active aspirin (ECOTRIN EC) 81 mg Tablet, Delayed Release (E.C.) Take 81 mg by mouth daily. Active atorvastatin (LIPITOR) 80 mg tablet Take 80 mg by mouth daily. Active clopidogreL (PLAVIX) 75 mg Tablet Take 75 mg by mouth. Active Active Problems No known active problems Encounters Date Type Department Care Team Description 06/18/2024 10:30 AM LEAD PRINCIPAL TECHNICAL ARCHITECT Office Visit [facility] Oncology and Hematology - [place] [address] [facility] [address] [place] [address] Fortunato Kathleen MD Polycythemia, secondary (Primary Dx) from Last 3 Months Family History * Patient is adopted Medical History Relation Name Comments No Known Problems Brother 1 No Known Problems Brother 2 No Known Problems Child 1 No Known Problems Child 2 No Known Problems Child 3 No Known Problems Child 4 No Known Problems Father Cancer Mother Heart Disease Mother Breast Cancer Sister Relation Name Status Comments Brother 1 Brother 2 Alive Child 1 Alive Child 2 Alive Child 3 Alive Child 4 Alive Father Mother Sister Social History Tobacco Use Types Packs/Day Years Used Date Smoking Tobacco: Former Cigarettes 1 50 0 06/18/1964 - 06/18/2014 Smokeless Tobacco: Never Tobacco Cessation:Counseling Given: Not Answered Alcohol Use Standard Drinks/Week Comments Not Currently 0 (1 standard drink = 0.6 oz pur e alcohol) Sex and Gender Information Value Date Recorded Sex Assigned at Not on file Legal Sex Male 8:57 AM LEAD PRINCIPAL TECHNICAL ARCHITECT Gender Identity Not on file Sexual Orientation Not on file Last Filed Vital Signs Vital Sign Reading Time Taken Comments Blood Pressure 117/77 06/18/2024 10:35 AM LEAD PRINCIPAL TECHNICAL ARCHITECT Pulse 69 06/18/2024 10:35 AM LEAD PRINCIPAL TECHNICAL ARCHITECT Temperature 36.8 C (98.3 F) 06/18/2024 10:35 AM LEAD PRINCIPAL TECHNICAL ARCHITECT Respiratory Rate 17 06/18/2024 10:3 5 AM LEAD PRINCIPAL TECHNICAL ARCHITECT Oxygen Saturation 97% 06/18/2024 10: 35 AM LEAD PRINCIPAL TECHNICAL ARCHITECT Inhaled Oxygen Concentration - - Weight 98.8 kg (217 lb 12.8 oz) 025 10:35 AM LEAD PRINCIPAL TECHNICAL ARCHITECT Height 180.3 cm (5' 11 ) 06/18/2024 10: 35 AM LEAD PRINCIPAL TECHNICAL ARCHITECT Body Mass Index 30.38 06/18/2024 10:35 AM LEAD PRINCIPAL TECHNICAL ARCHITECT Plan of Treatment Upcoming Encounters Date Type Department Care Team (Late st Contact Info) Description 07/02/2024 4:30 PM CDT Telephone Check Up [facility] Oncology and Hematology - [place] [address] [facility] [address] [place] [address] Fortunato Kathleen MD [address] [facility] [address] [place] [address] Health Maintenance Due Date Last Done Comments Traditional Medicare (ACO) A nnual Wellness Visit 1968 COLORECTAL SCREENING 1994 Colorectal Cancer Screening 1994 FIT-DNA Q 3 years 1994 FIT/FOBT Q 1 year 1994 Flex Sig/CT Colonography Q 5 years 1994 ZOSTER VACCINE (1 of 2) 07/01/1999 PNEUMOCOCCAL VACCINE 65+ YEA RS (2 of 2 - PPSV23) 06/12/2020 06/12/2019, 11/19/2004 INFLUENZA VACCINE (#1) 2023 03/13/2019 RSV VACCINE (60+ or ) (1 - 1-dose 75+ series) 2024 DTAP/TDAP/TD VACCINES (2 - Td or Tdap) 03/13/2029, 11/19/2004 Insurance MEDICARE PART A AND B
[2024-06-18 16:26] LABS: Alanine Aminotransferase 24 U/L (6-50); Albumin Level 4.4 g/dL (3.5-5.1); Alkaline Phosphatase 73 U/L (38-126); Anion Gap 12 mmol/L (4-12); Aspartate Amino Transferase 34 U/L (17-59); Bilirubin,Total 0.8 mg/dL (0.2-1.3); Blood Urea Nitrogen 12 mg/dL (9-20); Carbon Dioxide 25 mmol/L (22-30); Chloride 102 mmol/L (98-107); Estimated Glomerular Filt Rate 60; Glucose 130 mg/dL (65-110); Sodium 139 mmol/L (137-145)
[2024-06-20 12:43] LABS: Erythropoietin (EPO) 11.3 mIU/mL (2.6-18.5)
== END 2024-06-18 11:08 | disposition home or self-care (01) ==
LOC: ANHLAB 11:08
PROVIDERS: PCP Physician Assistant; Visit Provider Internal Medicine Hematology & Oncology
DX: D75.1 Secondary polycythemia (principal)
CPT/HCPCS: 36415; 80053; 81270; 82668; 85025

== ENCOUNTER 2024-08-15 15:41 | Emergency (ER) | payer MEDICARE, OTHER, SELFPAY ==
--- NOTE | ~2024-08-15 | XR_ITS ---
HISTORY: b/l low back pain, SPASMS COMPARISON: None. Reference is made to a CT examination of the chest performed 11/05/2021 TECHNIQUE: 3 view lumbar spine. FINDINGS: 13 degrees of levoscoliotic curvature of the lumbar spine is identified. There are 5 non-rib bearing lumbar vertebral bodies. Compression of the superior endplate of T12 is present, an interval change from 2021. Remaining spaces and vertebral body heights are well maintained. Severe facet arthropathy is noted more prominent within the lower lumbar spine. There are no lytic or sclerotic lesions. Paraspinal soft tissues are unremarkable. IMPRESSION: Compression of the superior endplate of T12 is present, an interval change from 2021 CT examination o f the chest, as detailed above. X-ray Reviewed, dictated and finalized at location A. IMPRESSION: Compression of the superior endplate of T12 is present, an interval change from 2021 CT examination of the chest, as detailed above. X-ray
[2024-08-15 15:41] VITALS: BP 160/93; PULSE 87; RESP 19; TEMP 36.6; O2SAT 100
[2024-08-15 16:01] VITALS: BP 144/81; PULSE 78; RESP 20; O2SAT 100
--- OUTSIDE RECORDS SUMMARY | 2024-08-15 17:46 | XMS_ITS | Clinical Summary ---
Author Organization [facility] Address [address] [facility] [place] [place] [address] Care Team Providers Care Product Responsibility Liaison Name Role Phone Unavailable Primary Care Provider [...] Encounters Date Type Department Care Team Description 08/06/2024 External Device Data STL ABSTRACTION Provider, Abstract 07/10/2024 External Device Data STL ABSTRACTION Provider, Abstract 07/10/2024 External Device Data STL ABSTRACTION Provider, Abstract 07/02/2024 4:30 PM CDT Telephone Check Up [facility] Oncology and H[facility]ology - Ariel [address] [place] [address] Fortunato Kathleen MD Polycythemia, secondary (Primary Dx) 07/02/2024 Orders Only [facility] On[facility] - [place] [address] [place] [address] Fortunato Kathleen MD 07/01/2024 External Device Data STL ABSTRACTION Provider, Abstract 06/29/2024 External Device Data STL ABSTRACTION Provider, Abstract 06/28/2024 External Device Data STL ABSTRACTION Provider, Abstract 06/27/2024 Abstract [facility] On[facility]ology - Ariel [address] [place] [address] Fortunato Kathleen MD 06/27/2024 Orders Only [facility] - Ariel [address] [place] [address] Fortunato Kathleen MD 06/26/2024 External Device Data STL ABSTRACTION Provider, Abstract 06/25/2024 External Device Data STL ABSTRACTION Provider, Abstract 06/25/2024 External Device Data STL ABSTRACTION Provider, Abstract 06/18/2024 10:30 AM INCLUSION PARAEDUCATOR Office Visit [facility] - Ariel [address] [place] [address] Fortunato Kathleen MD Polycythemia, secondary (Primary Dx) [...] on file Legal Sex Male 8:57 AM INCLUSION PARAEDUCATOR Gender Identity Not on file Sexual Orientation Not on file Last Filed Vital Signs Vital Sign Reading Time Taken Comments Blood Pressure 117/77 06/18/2024 10:35 AM INCLUSION PARAEDUCATOR Pulse 69 06/18/2024 10:35 AM INCLUSION PARAEDUCATOR Temperature 36.8 C (98.3 F) 06/18/2024 10:35 AM INCLUSION PARAEDUCATOR Respiratory Rate 17 06/18/2024 10:3 5 AM INCLUSION PARAEDUCATOR Oxygen Saturation 97% 06/18/2024 10: 35 AM INCLUSION PARAEDUCATOR Inhaled Oxygen Concentration - - Weight 98.8 kg (217 lb 12.8 oz) 025 10:35 AM INCLUSION PARAEDUCATOR Height 180.3 cm (5' 11 ) 06/18/2024 10: 35 AM INCLUSION PARAEDUCATOR Body Mass Index 30.38 06/18/2024 10:35 AM INCLUSION PARAEDUCATOR Plan of Treatment Upcoming Encounters Date Type Department Care Team (Late st Contact Info) Description 11/04/2024 11:45 AM CDT Office Visit [facility] Oncology [facility] Hematology [facility] [address] [facility] [address] [place] [address] Fortunato Kathleen MD [address] [facility] [address] [place] [address] Health Maintenance Due Date Last Done Comments COLORECTAL SCREENING 1994 Colorectal Cancer Screening 1994 FIT-DNA Q 3 years 1994 FIT/FOBT Q 1 year 1994 Flex Sig/CT Colonography Q 5 years 1994 Lung Cancer Screening 07/01/1999 ZOSTER VACCINE (1 of 2) 07/01/1999 Abdominal Aortic Aneurysm (AAA) Screening 2014 PNEUMOCOCCAL VACCINE 50+ YEA RS (2 of 2 - PPSV23) 08/07/2019 06/12/2019, 11/19/2004 INFLUENZA VACCINE (#1) 2023 03/13/2019 RSV VACCINE (60+ or ) (1 - 1-dose 75+ series) 2024 DTAP/TDAP/TD VACCINES (2 - Td or Tdap) 03/13/2029, 11/19/2004 Procedures Procedure Name Priority Date/Time Associated Diagnosis Comments CBC WITH DIFFERENTIAL Routine 06/18/2024 3:58 PM INCLUSION PARAEDUCATOR ERYTHROPOIETIN LEVEL Routine 06/18/2024 3:31 PM INCLUSION PARAEDUCATOR JAK2 EXON 12 MUTATION ANALYSIS Routine 06/18/2024 1:45 PM INCLUSION PARAEDUCATOR from Last 3 Months Results * CBC WITH DIFFERENTIAL (06/18/2024 3:58 PM INCLUSION PARAEDUCATOR) Blood us Fortunato Kathelen MD HEMATOLOGY ORDERABLES Final Res ult * ERYTHROPOIETIN LEVEL (06/18/2024 3:31 PM INCLUSION PARAEDUCATOR) Blood us Fortunato Kathleen MD CHEMISTRY ORDERABLES Final Resu lt * JAK2 EXON 12 MUTATION ANALYSIS (06/18/2024 1:45 PM INCLUSION PARAEDUCATOR) Blood us Fortunato Kathleen MD HEMATOLOGY ORDERABLES COM Final Result from Last 3 Months Insurance MEDICARE PART A AND B
--- OUTSIDE RECORDS SUMMARY | 2024-08-15 17:46 | XMS_ITS | Clinical Summary ---
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 Take 1 tablet (80 mg total) by [...] times a day with meals 04/26/19 25 Active lisinopriL (PRINIVIL,ZESTRIL) 20 mg tablet Take 1 tablet (20 mg total) by mouth daily 90 tablet 3 06/17/19 25 026 Active Active Problems Problem Noted Date Diagnosed Date Hx of CABG 04/26/2024 History of percutaneous coronary intervention Primary hypertension 04/26/2024 Chronic HFrEF (heart failure with reduced ejection fraction) 01/20/2022 NSVT (nonsustained ventricular tachycardia) 12/24 Sensorineural hearing loss (SNHL) of both ears 0 10/09/2018 ICD (implantable cardioverter-defibrillator) in place 09/19/2018 Overview (09/24/2018): Medtronic Single ICD. Dx; ICM. Gen change 09/06/2018-Noheria, chronic lead 03/19/2007. Carelink remote monitoring, office device checks Q1 yr. Ischemic cardiomyopathy 08/28/2018 Assessment & Plan (08/28/2018 1:49 AM CDT): s/p ICD placement (Medtronic). Follow with Color Making Supervisor Dr. Palomo at [facility]. ECHO in 02/2018 with reports of [...] 1998 ) and stentings. Known graft and cahto artery occlusive disease. Most recent NSTEMI in 02/2018 managed medically without intervention. - Increasing atorvastatin from 20mg to 80mg given apparent worsening of CAD occlusive disease of cahto coronaries. Continue on Aspirin 81mg QD History [...] stent placement 09/19/2018 10/19/2020 Pseudoaneurysm following procedure 09/03/2018 10/19/2020 Encounter due to AICD at end of battery life 9 10/19/2020 Overview (08/30/2018): Added automatically from request for surgery NSTEMI (non-ST elevated myoc ardial infarction) 08/28/2018 10/19/2020 Assessment & Plan (08/28/2018 1:45 [...] Encounters Date Type Department Care Team Description 06/19/2024 8:30 AM DATE NIGHT CAREGIVER Ancillary Procedure [facility] Cardiology [address] [place] [phone] ICD (implantable cardioverter-defibri llator) in place (Primary Dx); Ischemic cardiomyopathy; NSVT (nonsustained ventricular tachycardia) (HCC) 05/28/2024 Telephone [facility] Cardiology [address] [place] [address] [place] [phone] Francisca Hurd MD from Last 3 Months Immunizations Immunization Administration Dates Next Due Influenza, Trivalent, High D ose, Split, Preservative Free, Intramuscular 03/13/2019 Pneumococcal Conjugate PCV 13 06/12/2019 Tdap 03/13/2019 Medical History Medical History Date Comments Animal scratch 03/13/2019 NSTEMI (non-ST elevated myoc ardial infarction) (HCC) 08/28/2018 Encounter due to AICD at end of battery life 08/30/2018 Added automatically from req uest for surgery [id number] Pseudoaneurysm following procedure 09/03/2018 S/P coronary artery stent placement 09/19/2018 [...] on file Legal Sex Male 2:13 AM DATE NIGHT CAREGIVER Gender Identity Not on file Sexual Orientation Not on file Obstetrics History Last Filed Vital Signs Vital Sign Reading Time Taken Comments Blood Pressure 118/74 04/26/2024 2:34 PM DATE NIGHT CAREGIVER Pulse 75 04/26/2024 2:34 PM DATE NIGHT CAREGIVER Temperature 36.5 C (97.7 F) 06/12/2019 10:19 AM DATE NIGHT CAREGIVER Respiratory Rate 18 06/12/2019 10:19 AM DATE NIGHT CAREGIVER Oxygen Saturation 100% 04/26/2024 2:34 PM DATE NIGHT CAREGIVER Inhaled Oxygen Concentration - - Weight 98.4 kg (217 lb) 04/26/2024 2:34 PM DATE NIGHT CAREGIVER Height 180.3 cm (5' 11 ) 04/26/2024 2:34 PM DATE NIGHT CAREGIVER Body Mass Index 30.27 04/26/2024 2:34 PM DATE NIGHT CAREGIVER Plan of Treatment Health Maintenance Due Date Last Done Comments Colon Cancer Screening-Colonoscopy 1950 Fall Risk Assessment 1950 Hepatitis C Screening 1950 Hepatitis B Screening 07/01/1967 Zoster Vaccine (1 of 2) 07/01/1999 Abdominal Aortic Aneurysm (A AA) Screen 2014 Well Visit 65+ 2014 Depression Screening 08/28/2019 08/27/2018, 08/28/19 19 Pneumococcal vaccine 65+ (2 of 2 - PPSV23) 01/12/2022 11/17/2021, 06/12/2019, 11/19/2004 Influenza Vaccine (Season Ended) 2024 03/13/2019, 03/17/2004, 03/09/2001 DTaP/Tdap/Td Vaccine (3 - Td [...] telling anyone). Medical Devices Implanted Type Area Auto Damage Estimator Device Identifier Shelf Expiration Date Model / Serial / Lot Medtronic Cardiac Rhythm Mgmt [id number] Visia Af Mri Surescan [id number] Defibrillator Cardiac - [id number] - [id number] Implanted:Qty: 1 on 09/06/2018 by Temo Mederos MD at [facility] ICD N/A: Chest Medtronic Cardiac Rhythm Mgmt 11/05/2019 [id number] / [id number] / [employer] Shantelle [id number] Synergy 3.5mm 16mm 144cm Radiopaque 1 Access Port Inflation Lumen - [id number] - [id number] Implanted:Qty: 1 on 08/28/2018 by Abdirashid Larsen MD PhD at [facility] Stent N/A: Coronary [employer] Shantelle 05/13/2020 [id number] / [id number] / [id number] [employer] [id number] Synergy 2.5mm 38mm 144cm Radiopaque 1 Access Port Inflation Lumen - [id number] - [id number] Implanted:Qty: 1 on 08/28/2018 by Abdirashid Larsen MD PhD at [facility] Stent N/A: Coronary [employer] Shantelle 06/06/2020 [id number] / [id number] / [id number] Icd Left: Chest Procedures Procedure Name Priority Date/Time Associated Diagnosis Comments DEVICE CHECK - REMOTE Routine 06/20/2024 3:13 PM DATE NIGHT CAREGIVER Ischemic cardiomyopathy NSVT (nonsustained ventricular tachycardia) (HCC) from Last 3 Months Results * DEVICE CHECK - REMOTE (06/20/2024 3:13 PM DATE NIGHT CAREGIVER) Anatomical Region Laterality Modality Other Narrative 06/27/2024 8:10 AM DATE NIGHT CAREGIVER Medtronic Single ICD. Dx; ICM. Gen change 09/06/2018-Noheria, chronic lead 03/19/2007. Carelink remote monitoring, office device checks Q1 yr. Routine VVI ICD Remote. Transmission attached. Battery status 3.00 V, 6.1 years remaining battery life to COLLIN. Stable Charge time and Shock impedance. Stable lead impedances, pacing, and sensing threshold. Presenting rhythm: V sensed regular INDUSTRIAL RADIOGRAPHER-6.4 % (145) AT/AF episodes noted. Longest episode was 24 minutes in duration. IEGM demonstrates sinus rhythm/Cesar with PACs and PVCs. (0) Ventricular tachy arrhythmias detected. Medication: ASA 81 mg, Plavix 75 mg, carvedilol 25 mg, lisinopril 20 mg Follow up: Office Pacemaker/ICD scheduled letter sent to patient. Patient missed last office check. Letter request patient call to make appointment for in office device check CareLink remote 09/18/24 Flavio Coon RN [facility] Humble Hurd MD CV CARDIAC SERVICES PRO CEDURES Final Result from Last 3 Months Insurance MEDICARE [facility] INSURANCE [facility] MEDICARE [facility] MEDICARE [facility] INSURANCE Advance Directives For more information, please contact: [phone] * Full Code (Latest Code Status on File) Date Activated Date Inactivated Comments 08/27/2018 8:59 PM 08/29/2018 10:12 PM Care Teams Hollock Maker Relationship Specialty Start Date End Date Vika Landa PA [address] [place] [address] [place] [address] PCP - General 10/14/21 No, Physician 08/27/18
--- OUTSIDE RECORDS SUMMARY | 2024-08-15 17:46 | XMS_ITS | Referral Summary ---
Author Organization [place] [id number] [facility] Address [address] [place] [address] Care Team Providers Care Administrative Support Assoc Name Role Phone No, Physician Unavailable Vika Landa Primary Care Provider [phone] Encounters Date Type Department Care Team Description 06/19/2024 8:30 AM CLINICAL UNIT COORDINATOR Ancillary Procedure [facility] Cardiology [address] [place] [phone] ICD (implantable cardioverter-defibri llator) in place (Primary Dx); Ischemic cardiomyopathy; NSVT (nonsustained ventricular tachycardia) (HCC) 05/28/2024 Telephone [facility] Cardiology [address] [place] [phone] Francisca Hurd MD from Last 3 Months Allergies No known [...] enteric coated tabletIndications: Coronary artery disease involving [place] coronary artery of [place] heart with angina pectoris Take 1 tablet (81 mg total) by mouth daily 90 tablet 3 10/15/19 21 Active atorvastatin (LIPITOR) 80 mg tabletIndications: Coronary artery disease involving [place] coronary artery of [place] heart with angina pectoris Take 1 tablet [...] CDT): s/p ICD placement (Medtronic). Follow with Nursing Center Tutor Dr. Palomo at [facility]. ECHO in 02/2018 with reports of [...] 1998 ) and stentings. Known graft and [place] artery occlusive disease. Most recent NSTEMI in 02/2018 managed medically without intervention. - Increasing atorvastatin from 20mg to 80mg given apparent worsening of CAD occlusive disease of [place] coronaries. Continue on Aspirin 81mg QD History [...] on file Legal Sex Male 2:13 AM CLINICAL UNIT COORDINATOR Gender Identity Not on file Sexual Orientation Not on file Last Filed Vital Signs Vital Sign Reading Time Taken Comments Blood Pressure 118/74 04/26/2024 2:34 PM CLINICAL UNIT COORDINATOR Pulse 75 04/26/2024 2:34 PM CLINICAL UNIT COORDINATOR Temperature 36.5 C (97.7 F) 06/12/2019 10:19 AM CLINICAL UNIT COORDINATOR Respiratory Rate 18 06/12/2019 10:19 AM CLINICAL UNIT COORDINATOR Oxygen Saturation 100% 04/26/2024 2:34 PM CLINICAL UNIT COORDINATOR Inhaled Oxygen Concentration - - Weight 98.4 kg (217 lb) 04/26/2024 2:34 PM CLINICAL UNIT COORDINATOR Height 180.3 cm (5' 11 ) 04/26/2024 2:34 PM CLINICAL UNIT COORDINATOR Body Mass Index 30.27 04/26/2024 2:34 PM CLINICAL UNIT COORDINATOR Plan of Treatment Not on file Goals [...] telling anyone). Medical Devices Implanted Type Area Sole Blacker Device Identifier Shelf Expiration Date Model / Serial / Lot Medtronic Cardiac Rhythm Mgmt [id number] Visia Af Mri Surescan [id number] Defibrillator Cardiac - [id number] - [id number] Implanted:Qty: 1 on 09/06/2018 by Temo Mederos MD at [facility] ICD N/A: Chest Medtronic Cardiac Rhythm Mgmt 11/05/2019 [id number] / [id number] / [employer] Shantelle [id number] Synergy 3.5mm 16mm 144cm Radiopaque 1 Access Port Inflation Lumen - [id number] - [id number] Implanted:Qty: 1 on 08/28/2018 by Abdirashid Larsen MD PhD at [facility] Stent N/A: Coronary [employer] Shantelle 05/13/2020 [id number] / [id number] / [id number] [employer] Shant[employer] [id number] Synergy 2.5mm 38mm 144cm Radiopaque 1 Access Port Inflation Lumen - [id number] - [id number] Implanted:Qty: 1 on 08/28/2018 by Abdirashid Larsen MD PhD at [facility] Stent N/A: Coronary [employer] Shantelle 06/06/2020 [id number] / [id number] / [id number] Icd Left: Chest Procedures Procedure Name Priority Date/Time Associated Diagnosis Comments DEVICE CHECK - REMOTE Routine 06/20/2024 3:13 PM CLINICAL UNIT COORDINATOR Ischemic cardiomyopathy NSVT (nonsustained ventricular tachycardia) (HCC) from Last 3 Months Results * DEVICE CHECK - REMOTE (06/20/2024 3:13 PM CLINICAL UNIT COORDINATOR) Anatomical Region Laterality Modality Other Narrative 06/27/2024 8:10 AM CLINICAL UNIT COORDINATOR Medtronic Single ICD. Dx; ICM. Gen change 09/06/2018-Noheria, chronic lead 03/19/2007. Carelink remote monitoring, office device checks Q1 yr. Routine VVI ICD Remote. Transmission attached. Battery status 3.00 V, 6.1 years remaining battery life to COLLIN. Stable Charge time and Shock impedance. Stable lead impedances, pacing, and sensing threshold. Presenting rhythm: V sensed regular SURFACE GRINDER TENDER-6.4 % (145) AT/AF episodes noted. Longest episode [...] check CareLink remote 09/18/[address] [facility] Humble Hurd MD CV CARDIAC SERVICES PRO CEDURES Final Result from Last 3 Months Insurance MEDICARE [facility] INSURANCE [facility] MEDICARE [facility] MEDICARE [facility] Advance Directives For more information, please contact: [phone] * Full Code (Latest Code Status on File) Date Activated Date Inactivated Comments 08/27/2018 8:59 PM 08/29/2018 10:12 PM Care Teams Administrative Support Assoc Relationship Specialty Start Date End Date Vika Landa PA [address] [place] [address] PCP - General 10/14/21 No, Physician 08/27/18
--- OUTSIDE RECORDS SUMMARY | 2024-08-15 17:46 | XMS_ITS | Continuity of Care Document ---
Author Name [facility] Organization [facility] Care Team Providers Care Mower Sharpener Name Role Phone [facility] Unavailable Unavailable Problems Combined list of problems from Department of Defense and [facility] Affairs facilities. It does not include entries that were removed or entered in error. Problem Status Onset Date Problem Type Date of Resolution Comments Source Fungus, disease NEC Active 1 Condition Dec 04, 2000 Entered By: ALEXA BO Comment: typical jock itch involving inguinal area [facility] Acute myocardial infarction Inactive 9 Condition 12/04/2000 Dec 04, 2000 Entered By: ALEXA BO Comment: CABG 3 vessel post mi [facility] Acute myocardial infarction, unspecified site, episode of care unspecified (ICD- Active Condition [facility] ANGINA PECTORIS NEC/NOS Active Condition [place] [...] LHC/grafts. Plan PTCA prox LAD in July [facility] DIAPHRAGMATIC HERNIA Active Condition [place] ESOPHAGEAL REFLUX Active [place] Hearing loss * (ICD-9-CM 389.9) Active Condition [facility] Hyperlipidemia * (ICD-9-CM 272.4) Active Condition [facility] Impacted cerumen * (ICD-9-CM 380.4) Active Condition [facility] Issue of Repeat Prescriptions (ICD-9-CM V68.1) Active Condition [facility] Nicotine Dependence (ICD-9-CM 305.1) Active Condition [facility] Old Myocardial Infarction (ICD-9-CM 412.) Active Condition [facility] Otitis Externa, Acute (ICD-9-CM 380.00) Active Condition [facility] Personal History of Tobacco Use (ICD-9-CM V15.82) Active Condition [facility] Postsurgical Aortocoronary Bypass Status (ICD-9-CM V45.81) Active Condition Jul 06 Entered By: ARLYN TAVERAS Comment: 1998: (BABIN-LAD, SVG-OM, SVG>RCA) [facility] Postsurgical Percutaneous Transluminal Coronary Angioplasty Status (ICD-9-CM V45 Active Condition Jul 26, 2005 Entered By: ANNA LOWERYI Comment: 07/26/05: Rotoblation/ PTCA/Cypher 2.5 X 8 stent X 1 Prox LAD [facility] S/P AICD Active Condition [facility] Medications Combined list of outpatient medications from [...] A DAY ORAL ACTIVE JOSE BABCOCK 2006 [facility] CARVEDILOL 25MG TAB TAKE ONE-HALF TABLET BY MOUTH TWICE A DAY ORAL ACTIVE DANIELLE DAMICO 2011 [facility] LISINOPRIL 10MG TAB TAKE ONE-HALF TABLET BY MOUTH ONCE A DAY ORAL ACTIVE DANIELLE DAMICO AMMARIE T 2011 [facility] Immunizations Combined list of available immunizations from the Department of Defense and Veterans Affairs facilities. Immunization Series Date Given Administered By Site Reaction Lot Number CVX Code Drug Risk Tech Status Comments Source PNEUMOCOCCAL, UNSPECIFIED FORMULATION 2004 109 complet ed [facility] TD(ADULT) UNSPECIFIED FORMULATION 2004 139 complet ed [facility] INFLUENZA, UNSPECIFIED FORMULATION 2003 88 complet ed [facility] FLU,3 YRS (HISTORICAL) 2000 88 complet ed [facility] Encounters Combined list of: 1) Encounters from Department of Veterans Affairs facilities going backup to the last 18 months, not all [place] inpatient encounters are included; 2) Encounters from the Department of Defense facilities going backup to 280 months. Location Location Details Encounter Type Encounter Number Reason For Visit Attending Provider ADM Date DC Date Status Disposition Source [facility] Outpatient Encounter [id number] 01/30 [facility] Social History Combined list of available smoking, tobacco, and other social history from Department of Defense and Veterans Affairs facilities. Social History Type Response Date Comment Source Tobacco smoking status NHIS CURRENT TOBACCO USER 04/14/2011 [facility] History of tobacco use TOBACCO MEDS OFFERED BUT DECLINED 04/14/2011 [facility] History of tobacco use CURRENT TOBACCO USER 08/10/2009 [facility] History of tobacco use CURRENT TOBACCO USER 05/02/2008 [facility] History of tobacco use CURRENT TOBACCO USER 03/20/2007 HE STATED HE KNOWS HE NEEDS TO STOP SMOKING AND HE IS WILLING TO TRY,HAS MORE INVOLVED CARDIAC PROBLEMS. [facility] History of tobacco use TOBACCO OFFERRED PT MEDS (PROVIDER) 01/25/2007 [facility] History of tobacco use CURRENT TOBACCO USER 01/16/2007 [facility] History of tobacco use IC/PATIENT IS SMOKER 11/28/2006 [facility] History of tobacco use CURRENT TOBACCO USER 07/01/2005 [facility] History of tobacco use CURRENT TOBACCO USER 11/19/2004 [facility] History of tobacco use CURRENT TOBACCO USER 08/19/2004 [facility] History of tobacco use CURRENT TOBACCO USER 07/19/2004 [facility] History of tobacco use CURRENT TOBACCO USER 03/17/2004 [facility] History of tobacco use CURRENT SMOKER 12/04/2000 [facility] Advance Directives List of completed, amended, or rescinded Advance Directives on record at Department of [facility] Affairs facilities. An actual copy of the Directive is not included. Date Advance Directive Provider Source 07/04/2005 ADVANCE DIRECTIVE BOBBI DUFFY IS [facility]
[2024-08-15] MEDS: methocarbamoL 500 MG TABLET PO (17:53)
[2024-08-15] MEDS: dexAMETHasone SOD PHOS INJ 10 MG/ML 1 ML VIAL IV PUSH (17:53)
[2024-08-15] MEDS: HYDROmorphone HCL INJ (*CRX) 2 MG/ML VIAL 0.5 MG IV PUSH ×2 (17:54→20:11)
--- NOTE | 2024-08-15 18:14 | ED.BACK ---
HPI - Back Pain/Injury General Chief Complaint: Back Pain/Injury Stated Complaint: low back pain/spasm Time Seen by Provider: 08/15/24 16:59 History of Present Illness HPI Narrative: 74-year-old male with a past medical history including coronary disease, cardiomyopathy with AICD, history of CABG. Today patient presents to the emergency room with chief complaint of spasms in his lower back bilaterally. Patient denies any paresthesias or numbness in his legs and he is able to ambulate with the assistance of a cane. He states that the spasms have been increasing in intensity over last 2 weeks. He has been taking Tylenol at home without any relief of symptoms. Tried some icy Hot and local numbing agents without any significant improvement. Denies any chest pain, shortness a breath, nausea, vomiting, abdominal pain, upper back pain, neuropathy. He has no saddle anesthesias or incontinence issues. No trauma or falls according to himself and the family members. Patient has been in his normal state of health recently with no changes to his health or medications. Related Data Home Medications ?Medication ?Instructions ?Recorded ?Confirmed ?Last Taken ?Type albuterol sulfate 0.63 mg/3 mL 0.63 mg inhalation Q6H PRN Wheezing 09/06/21 01/25/22 09/06/21 12:01 History solution for nebulization albuterol sulfate 90 mcg/actuation 2 puff inhalation Q4-6H 09/06/21 01/25/22 09/05/21 History aerosol inhaler aspirin 81 mg tablet 81 mg PO DAILY 09/06/21 01/25/22 09/05/21 History atorvastatin 80 mg tablet 80 mg PO DAILY 09/06/21 01/25/22 09/05/21 History clopidogrel 75 mg tablet 75 mg PO DAILY 09/06/21 01/25/22 09/05/21 History carvedilol 6.25 mg tablet (Coreg) 12.5 mg PO Q12HR 01/25/22 01/25/22 Unknown History spironolactone 25 mg tablet 25 mg PO DAILY 01/25/22 01/25/22 Unknown History Allergies Allergy/AdvReac Type Severity Reaction Status Date / Time No Known Allergies Allergy Unknown Verified 08/15/24 15:48 Review of Systems Review of Systems: As reviewed above in HPI [facility] Past Medical History Medical History MADHU (obstructive sleep apnea) ICD (implantable cardioverter-defibrillator) in place Bradycardia PVCs (premature ventricular contractions) Ischemic cardiomyopathy Acute on chronic combined systolic and diastolic CHF (congestive heart failure) Cardiac defibrillator in situ HTN (hypertension), malignant Hyperlipidemia COPD (chronic obstructive pulmonary disease) CHF (congestive heart failure) Myocardial infarction CAD (coronary artery disease) Surgical History Surgical History History of coronary artery stent placement X2 S/P triple vessel bypass History of tonsillectomy Family History Family History Mother Acute myocardial infarction Sibling Breast cancer Social History Social History Social History: The patient lives at home with his . He has 4 children. 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 The patient occasionally has a social drink. The patient stated that he quit smoking at the beginning of COVID 19. He is retired. Code status full code Smoking packs per day: 1 Smoking cigarettes per day: 20.0 Years smoked: 50 Smoking pack-years: 50.00 Smoking status: Former smoker Tobacco type: cigarettes Second hand tobacco smoke exposure: No Alcohol intake: former Spiritual care concerns: No Exam Narrative: GENERAL: [Well-appearing, well-nourished, and in no acute distress.] HEAD: [Normocephalic, atraumatic.] EYES: [PERRLA and EOMI.] ENT: Nares clear, no rhinorrhea or epistaxis. Mucous membranes moist. NECK: Supple. CHEST: [Clear to auscultation. No respiratory distress.] HEART: [Regular rate and rhythm]. No murmur heard. [Normal peripheral pulses.] ABDOMEN: [Soft, nondistended], [nontender], [No rigidity or guarding] EXTREMITIES: Normal range of motion. [No edema.] Able to plantar and dorsiflex with EHL and FHL 5/5. Able to flex at the hips bilaterally 5/5, knee flexion extension full bilaterally. No midline tenderness to the cervical thoracic or lumbar region. Some bilateral paraspinal muscle tenderness around the hips. SKIN: Warm, dry, no rash. NEURO: [No focal deficits]. Alert and oriented [x3.] PSYCH: [Normal mood and affect.] Course Vital Signs Vital signs: Vital Signs Temperature 36.6 C 08/15/24 15:41 Pulse Rate 87 08/15/24 15:41 Respiratory Rate 19 08/15/24 15:41 Blood Pressure 160/93 H 08/15/24 15:41 Pulse Oximetry 100 08/15/24 15:41 Oxygen Delivery Room Air 08/15/24 15:41 Temperature 36.6 C 08/15/24 15:41 Pulse Rate 60 08/15/24 19:31 Respiratory Rate 12 08/15/24 19:31 Blood Pressure 140/80 08/15/24 19:31 Pulse Oximetry 99 08/15/24 19:31 Oxygen Delivery Room Air 08/15/24 15:41 MDM - Back Pain/Injury MDM Narrative Medical decision making narrative: 74-year-old male with a history of cardiac disease presenting to the emergency depart with bilateral paraspinal muscle tenderness. He states that he has been having back spasms in his low lumbar region near the hips. Denies any falls or injury. He states he has been taking Tylenol and topical therapies without any relief of symptoms. No paresthesias, no anesthesias. No saddle anesthesia and no urinary incontinence or fecal incontinence. Full range of motion on examination no midline tenderness. And EHL and FHL 5/5 strength bilaterally. He has normal vital signs. Likely patient has some musculoskeletal back pain and back spasms. Will evaluate x-rays of the lumbar region and provide him a combination medications for therapy including hydromorphone, Decadron and Robaxin. Patient will be re-evaluated for therapies to see if we can discharge him home with a combination of therapies to try. X-ray show a slight compression of the superior endplate of T12 which is an interval change from 2021 but no obvious fracture. Patient was re-evaluated after pain control medications and felt significantly improved. No longer having muscle spasms in his back. He was ambulated with his normal walker and had no assistance. Patient felt comfortable going home at this time with a combination medications including [place], Robaxin, lidocaine patches and steroids for the next several days. Patient's questions were answered as well as his family members questions. He was referred to his primary care provider for re-evaluation and given strict return precautions. Medical Records Attestation: I reviewed the patient's medical records. Imaging Data Attestation: I personally reviewed and interpreted this imaging study as follows: My impression: Impressions Lumbar Spine X-Ray 08/15/24 18:12 IMPRESSION: Compression of the superior endplate of T12 is present, an interval change from 2021 CT examination of the chest, as detailed above. X-ray Discharge Plan Discharge Clinical Impression: Low back pain, Muscle spasm of back Patient Disposition: Home Condition: Stable Instructions: Antibiotic Form, Acute Low Back Pain (ED) Additional Instructions: Your x-ray shows a slight compression of the endplate of T12 which is a vertebra. No obvious fracture or significant deformity. The remaining bones and vertebra are all intact, this is likely contributing but not the definitive cause of your back pain. We will send you home with some muscle relaxers, steroids and pain control medications to keep you mobile and moving. If you experience any worsening pain return to the hospital otherwise follow-up with your regular doctor. You might benefit from physical therapy. Return to the ER if you have increased pain in your back, you develop lower extremity weakness/numbness/paralysis, you have numbness or tingling in your private parts, or you are unable to control your ability to urinate/stool. Patient Language: [place] Prescriptions: New hydrocodone-acetaminophen 5-325 mg tablet 1 tablet PO Q8H PRN (Reason: pain) Qty: 14 0RF methocarbamol 750 mg tablet 750 mg PO TID PRN (Reason: pain) Qty: 20 0RF lidocaine 5 % adhesive patch,medicated 1 patch topical DAILY Qty: 15 0RF Rx Instructions: leave on most painful area for up to 12 hrs prednisone 50 mg tablet 50 mg PO DAILY 5 Days Qty: 5 0RF No Action [id number] 160-9-4.8 mcg/actuation HFA aerosol inhaler 2 inh inhalation BID Qty: 10.7 3RF spironolactone 25 mg Tablet 25 mg PO DAILY carvedilol [Coreg] 6.25 mg tablet 12.5 mg PO Q12HR atorvastatin 80 mg Tablet 80 mg PO DAILY aspirin 81 mg Tablet 81 mg PO DAILY clopidogrel 75 mg Tablet 75 mg PO DAILY albuterol sulfate 90 mcg/actuation Hfa Aerosol Inhaler 2 puff INHALATION Q4-6H albuterol sulfate 0.63 mg/3 mL Solution For Nebulization 0.63 mg INHALATION Q6H PRN (Reason: Wheezing) lisinopril 5 mg Tablet 5 mg PO QAM Qty: 30 0RF Jardiance 10 mg Tablet 10 mg PO QAM Qty: 30 2RF Follow-up/Referrals: UNKNOWN,DOCTOR [Primary Care Provider] - Time of Disposition: 19:59
[2024-08-15 19:31] VITALS: BP 140/80; PULSE 60; RESP 12; O2SAT 99
--- NOTE | 2024-08-15 19:48 | PC.NURSE ---
Pt road tested at this time. Pt able to get in and out of bed by himself. Ambulatory out of room with walker w steady gait.
--- NOTE | 2024-08-15 20:15 | PC.NURSE ---
Pt began n/v after dilaudid. VO for Zofran obtained from ERP
[2024-08-15] MEDS: ONDANSETRON INJ 4 MG/2 ML VIAL IV PUSH (20:17)
== END 2024-08-15 20:36 | disposition home or self-care (01) ==
PROVIDERS: Emergency Provider Student in an Organized Health Care Education/Training Program
DX: M62.830 Muscle spasm of back (principal); M54.50 Low back pain, unspecified; I25.10 Atherosclerotic heart disease of native coronary artery without angina pectoris; I25.5 Ischemic cardiomyopathy; I25.2 Old myocardial infarction; I11.0 Hypertensive heart disease with heart failure; I50.43 Acute on chronic combined systolic (congestive) and diastolic (congestive) heart failure; J44.9 Chronic obstructive pulmonary disease, unspecified; E78.5 Hyperlipidemia, unspecified; G47.33 Obstructive sleep apnea (adult) (pediatric); Z95.810 Presence of automatic (implantable) cardiac defibrillator; Z95.1 Presence of aortocoronary bypass graft; Z95.5 Presence of coronary angioplasty implant and graft; Z87.891 Personal history of nicotine dependence; Z79.82 Long term (current) use of aspirin; Z79.02 Long term (current) use of antithrombotics/antiplatelets; Z79.84 Long term (current) use of oral hypoglycemic drugs; Z79.899 Other long term (current) drug therapy
CPT/HCPCS: 72100; 96374; 96375; 96376; 99284; A9270; J1100; J1171; J2405

== ENCOUNTER 2024-11-04 10:54 | Outpatient (CLI) | payer MEDICARE, SELFPAY ==
--- OUTSIDE RECORDS SUMMARY | 2024-11-04 11:02 | XMS_ITS | Data Portability ---
Author Organization [place] [facility] [employer], Main Office Address [address] [place] [address] Assessment No assessment recorded. Plan of Treatment Reminders Order Date Submit Date Provider Last Modified By Organization Details Last Modified Time Details Appointments Follow Up 15 2024 09:15A Dalia Delgado NP Not available Not available Not available Lab noninvasi ve colorecta l cancer DNA + occult blood screening , QL, stool 2023 024 [employer] (Cologuard Orders Only), [address], [address], [place], [address], 04/03/2024 07:34:56 hepatitis C virus Ab, serum 2023 024 [facility] (Lab), [address] [place], [address], 03/27/2024 23:40:21 lipid panel, serum 2023 024 [facility] (Lab), [address] [place], [address], 03/27/2024 23:40:22 TSH, serum or plasma 2023 024 [facility] (Lab), [address] [place], [address], 03/27/2024 23:40:22 CBC w/ auto diff 2023 024 [facility] (Lab), [address] [place], [address], 03/27/2024 23:40:22 CMP, serum or plasma 2023 024 ARTEMIO [facility] (Lab), [address] [place], [address], 03/27/2024 23:40:21 unlisted lab - hemoglobi n A1C 496 2023 024 [email or web address] [facility] (Lab), [address] [place], [address], 04/03/2024 07:34:56 lipid panel, serum [address] (Lab), [address] [place], [address], 09/01/2023 09:56:00 PSA, serum or plasma [address] (Lab), [address] [place], [address], 09/01/2023 09:56:00 CMP, serum or plasma [address] (Lab), [address] [place], [address], 09/01/2023 09:56:00 CBC w/ auto diff [address] (Lab), [address] [place], [address], 09/01/2023 09:56:00 glycohemo globin, total, blood [address] (Lab), [address] [place], [address], 09/01/2023 09:56:00 Referral physical therapist referral - Please call patient to schedule. [address] (Outpatient Physical Therapy), [address], [place], [address], 09/19/2024 11:02:15 podiatris t referral - Please call patient to schedule. Note from provider: Needs nail trims and has dry, pruritic rash to left foot, history of vein removal for heart surgery in left. 2023 024 alba Guido, [address] [place], [address], Ph [phone] 06/26/2024 08:54:49 Procedures None recorded. Surgeries None recorded. Imaging None recorded. Medication Orders hydrocodo ne 5 mg-acetam inophen 325 mg tablet 2024 025 [facility], [address] [place], [address], 08/19/2024 11:38:47 clotrimaz ole-betam ethasone 1 %-0.05 % topical cream 2023 024 [facility], [address] [place], [address], 03/27/2024 11:00:12 Patient TargetsNo targets recorded. Patient Instructions Encounter Date Encounter Id Patient Instructions Last Modified By Organization Details Last Modified Time 08/25/2023 [id number] dementia rating scale-2* [email or web address] Not available 08/28/2023 08:49:46 multi-dimensiona l health assessment questionnaire* [email or web address] Not available 08/28/2023 08:49:50 care plan* Not available 08/24 16:34:59 advance care planning: care instructions Not available 08/25/2023 16:34:59 advance directiv es: care instructions Not available 08/25/2023 16:34:58 [place] Advance Directives Not available 08/25/2023 16:34:59 Personalized a lt Plan and Screening Recommendations Advance Directives - Do you have one? No Advance Directives - Do we have your advance directive on file in your health record? Primary Prevention/Interven tion (prevents or decreases the chance of common diseases from occurring) Smoking Risk: Non Smoker Alcohol Misuse Screening: Negative Weight: Overweight Physical activity: Appropriate physical activity Nutrition: Average Fall Risk (screened today): Low Vaccines Pneumococcal: Recommended today, but you have declined Influenza: Recommended today, but you have declined Chronic Disease Risks Stroke: Intermediate Risk Active diagnosis, Continue current treatment plan Heart Attack: Intermediate Risk Active diagnosis, Continue current treatment plan Clogging of the Arteries: Low risk Active diagnosis, Continue current treatment plan Diabetes: Low Risk Active diagnosis, Continue current treatment plan Secondary Prevention/Interven tion (detects treatable diseases before they may cause symptoms, disability, or ) Prostate Cancer Screening: No PSA screening necessary Colon Cancer Screening: No screening necessary Date Screening Last Performed: Eye Disease Screening: Your next exam in: Dementia Risk: Low Depression Screening: Negative Active diagnosis, Continue current treatment plan Not available 08/25/2023 16:31:18 03/27/2024 [id number] Follow up in 6 months Prescriptions sent to pharmacy Obtain labs Tests: Referral: Dr. GuidoNnaxtt-qxhesjxb-uvo l trim and left foot dryness/rash Recommend: Follow up with Pool Technician Pneumococcal vaccine Shingles vaccine [email or web address] Not available 03/27/2024 11:12:08 Reason for Referral [employer] Referral for Prudence a pedis Please call patient to schedule.Note from provider: Needs nail trims and has dry, pruritic rash to left foot, history of vein removal for heart surgery in left. Referring Physician: Veronica Infante, Internal Medicine, Encounter Date: 03/27/2024 Physical Therapist Referral for Spasm of back muscles Please call patient to schedule. Referring Physician: Rosalinda Delgado, Family Medicine, Encounter Date: 08/19/2024 Results Created Date Observation Date Name Description Value Unit Range Abnormal Flag Note LastModifiedBy Organization Detail LastModifiedTime 11/18/1911/17/2021 urina lysis , dipst ick Color Dark Yellow Not Available _[facility]_[address] , [place], [address], 11/17/2021 14:53:57 11/18/1911/17/2021 urina lysis , dipst ick Appearance Slight ly Cloudy Not Available [address], [place], [address], 11/17/2021 14:53:57 11/18/19 22 11/17/2021 urina lysis , dipst ick Glucose (reference range: negative mg/dl) Negati ve Not Available [address], [place], [address], 11/17/2021 14:53:57 11/18/19 22 11/17/2021 urina lysis , dipst ick Bilirubin (reference range: negative mg/dl) Negati ve Not Available [address], [place], [address], 11/17/2021 14:53:57 11/18/19 22 11/17/2021 urina lysis , dipst ick Ketone (reference range: negative mg/dl) Negati ve Not Available [address], [place], [address], 11/17/2021 14:53:57 11/18/19 22 11/17/2021 urina lysis , dipst ick Specific [place] (reference range: 1.005-1.030) 1.020 Not Available [place] [address], [place], [address], 11/17/2021 14:53:57 11/18/19 22 11/17/2021 urina lysis , dipst ick Blood (reference range: negative Dwain/ l) Negati ve Not Available [address], [place], [address], 11/17/2021 14:53:57 11/18/19 22 11/17/2021 urina lysis , dipst ick pH (reference range: 5-7) 5.0 Not Available [address] , [place], [address], 11/17/2021 14:53:57 11/18/19 22 11/17/2021 urina lysis , dipst ick Protein (reference range: negative mg/dl) Negati ve Not Available [address] , [place], [address], 11/17/2021 14:53:57 11/18/19 22 11/17/2021 urina lysis , dipst ick Urobilinogen (reference range: 0.2-1 mg/dl) 0.2 Not Available [address], [place], [address], 11/17/2021 14:53:57 11/18/19 22 11/17/2021 urina lysis , dipst ick Nitrite (reference rage: negative mg/dl) negati ve Not Available [address] , [place], [address], 11/17/2021 14:53:57 11/18/19 22 11/17/2021 urina lysis , dipst ick Leukocytes (reference range: negative dannielle/ l) Negati ve Not Available [address] , [place], [address], 11/17/2021 14:53:57 09/09/19 22 09/08/2021 NM, lung scan, quant itati ve diffe renti al pulmo nary perfu ruperto No observ ation record ed. [id number] [address], [place], [address], 06/23/2022 00:59:34 11/06/19 22 11/05/2021 LDCT, chest , for lung yoseph peoples No observ ation record ed. [id number] [facility] [address], [place], [address], 06/23/2022 00:59:34 Result Notes None recorded. Problems Name Problem SNOMED Code Status Onset Date Resolution Date Notes Provider Name and Address Organization Details Recorded Time Chronic obstructive pulmonary disease 63593802 Active 2021 Veronica Infante APRN [address], [address], [place], [address], [employer] 4 09:26:15 Coronary atherosclerosi s 712645960 Active 2021 Veronica Infante APRN [address], [address], [place], [address], [employer] 4 09:26:18 Hyperlipidemia 77520176 Active 2021 Veronica Infante APRN [address], [address], [place], [address], [employer] 4 09:26:21 Essential hypertension 20337142 Active 2021 Veroncia Infante APRN [address], [address], [place], [address], [employer] 4 09:26:19 Upper respiratory infection 94874115 Active 2023 PIETRO Shaw [address], [address], [place], [address], [employer] 4 11:33:56 Tinea pedis 8486614 Active 2023 Veronica Infante APRN [address], [address], [place], [address], [employer] 4 10:54:46 Abnormal heart beat 051452349 Active 2023 Veronica Infante APRN [address], [address], [place], [address], [employer] 4 11:08:08 Erythrocytosis 794836775 Active 2023 Veronica Infante APRN [address] [facility] [address], [place] [address] [address], [place], [address], [facility] [employer] [facility] 4 16:30:58 Spasm of back muscles 397296459 Active 2024 PIETRO Shaw [address] [facility] [address], [address] [address], [place], [address], [facility] [employer] [facility] 5 11:18:30 Low back pain 454531139 Active 2024 PIETRO Shaw [address], [place] [address], [place], [address], [facility] [employer] [facility] 5 11:23:12 Cardiac defibrillator in situ 992193260 Active 2024 PIETRO Shaw [address] [facility], [address] [address], [place], [address], [facility] [employer] [facility] 5 11:27:25 Problem Notes None recorded. Procedures Surgical History Date Name Laterality Status Provider Name and Address Organization Details Recorded Time Medicare Wellness CPT Code, subsequent completed Luma Johns RN [facility] [employer] [facility] 08/25/2023 16:00:56 placement of stent in pulmonary artery completed GERALD Michel [facility] [employer] [facility] 08/19/2024 11:11:22 Imaging Results None recorded. Procedure Notes None recorded. Medical Equipment None [...] completed Not Available Not Available Not Available hydrocodone 5 mg-acetamin ophen 325 mg tablet Take 1 tablet every day by oral route. 2024 active Not Available Not Available Not Avai lable lisinopril 20 mg tablet Take 1 tablet [...] completed Not Available Not Available Not Available methocarbam ol 750 mg tablet Take 1 tablet 3 times a day by oral route. active Not Available Not Available No t Available clotrimazol e-betametha sone 1 %-0.05 % [...] Not Available Not Available Not Avai lable prednisone 50 mg tablet Take 1 tablet every day by oral route for 5 days. active Not Available Not Available No t Available lisinopril 5 mg tablet TAKE 1 TABLET [...] Not Available Not Available Vitals Date Recorded Body height Body mass index (BMI) Body weight Body temperature Heart rate Oxygen saturation Oxygen saturation in Arterial blood by Pulse oximetry Systolic And Diastolic Provider Name and Address Organization Details Last Updated DateTime 5 177.8 cm 30.7 kg/m2 72316.7 7 g 97.4 [degF] 88 /min 96 % 96 % 116/86 mm[Hg] GERALD Michel [place] [employer] [facility] 5 10:59:37 Date Recorded Body weight Body mass index (BMI) Body height Body temperature Heart rate Oxygen saturation Oxygen saturation in Arterial blood by Pulse oximetry Systolic And Diastolic Provider Name and Address Organization Details Last Updated DateTime 4 96635.5 4 g 31.1 kg/m2 177.8 cm 96.8 [degF] 91 /min 97 % 97 % 130/92 mm[Hg] Luma Johns RN [facility] [employer] 4 16:07:10 Date Recorded Oxygen saturation Oxygen saturation in Arterial blood by Pulse oximetry Heart rate Body temperature Body weight Systolic And Diastolic Provider Name and Address Organization Details Last Updated DateTime 2 97 % 97 % 110 /min 97.1 [degF] 82202.7 7 g 128/74 mm[Hg] Not Available [facility] 3 00:57:32 Date Recorded Oxygen saturation Oxygen saturation in Arterial blood by Pulse oximetry Heart rate Body temperature Body weight Systolic And Diastolic Provider Name and Address Organization Details Last Updated DateTime 2 99.01 % 99.01 % 78 /min 98.1 [degF] 98795.2 1 g 146/80 mm[Hg] Not Available [facility] 3 00:57:32 Date Recorded Body height Body mass index (BMI) Body weight Body temperature Heart rate Oxygen saturation Oxygen saturation in Arterial blood by Pulse oximetry Systolic And Diastolic Provider Name and Address Organization Details Last Updated DateTime 4 177.8 cm 31.1 kg/m2 06066.5 4 g 96.8 [degF] 112 /min 99 % 99 % 142/86 mm[Hg] Luma Johns RN [facility] [employer] 4 10:43:12 Social History Question Answer Notes LastModified by Organizat ion Details LastModified Time Tobacco Smoking Status Former Smoker quit 10 years ago GERALD Michel, [facility] [employer] 08/19/2024 11:07:22 What Is Your Level Of Caffeine Consumption? Moderate Information not available 08/19/2024 In The 14 Days Before Symptom Onset, Have You Had Close Contact With A Laboratory-confi rmed COVID-19 While That Case Was Ill? No [id number] Information not available 06/23/2022 In The 14 Days Before Symptom Onset, Have You Had Close Contact With A Person Who Is Under Investigation For COVID-19 While That Person Was Ill? No [id number] Information not available 06/23/2022 What Type Of Diet Are You Following? REGULAR [id number] Information not available 06/23/2022 Have There Been Any Changes To Your Family Or Social Situation? No Information not available 08/19/2024 Where Do You Live? SingleLevelHouse Information not available 08/19/2024 What Was The Date Of Your Most Recent Tobacco Screening? 08/19/2024 Information not available 08/19/2024 Do You Have Any Pets? No Information not available 08/19/2024 What Is Your Relationship Status? Information not available 08/19/2024 Do You Use Your Seat Belt Or Car Seat Routinely? Yes Information not available 08/19/2024 Do You Have Smoke And Carbon Monoxide Detectors In Your Home? Yes Information not available 08/19/2024 Are You Passively Exposed To Smoke? No Information not available 08/19/2024 Are There Any Smokers In Your House? No Information not available 08/19/2024 Do You Participate In Social Media? No Information not available 08/19/2024 Do You Use Sunscreen Routinely? No Information not available 08/19/2024 Have You Recently Traveled Abroad? No Information not available 08/19/2024 Are You Currently In School? No Information not available 08/19/2024 Do You Have Any Dietary Restrictions? No [id number] Information not available 06/23/2022 Sex: Unknown Functional Status Question Answer Note LastModified by Organizat ion Details LastModified Time Do you use any illicit or recreational drugs? No Information not available 08/19/2024 What is your level of alcohol consumption? None Information not available 08/19/2024 Are you currently employed? No Information not available 08/19/2024 What is your exercise level? Occasional Information not available 08/19/2024 Mental Status Question Answer Note LastModified by Organization D etails LastModified Time Do you feel stressed (tense, restless, nervous, or anxious, or unable to sleep at night)? [id number] Information not available 08/19/2024 Family History Relationship Description Onset Age of this Age Resolved Age Notes LastModified by Organization Details LastModified Time Father Hypertensive disorder [id number] Not available 06/23/2022 00:57:05 Mother Family history of malignant neoplasm [id number] Not available 06/23/2022 00:57:05 Medical History No medical history recorded. Immunizations Vaccine Type Date Status Note Provider Nam e and Address Organization Details Recorded Time Tdap 2 completed Not Available [facility] 06/23/2022 00:59:26 Pneumococcal conjugate PCV 13 2 completed Not Available [facility] 06/23/2022 00:59:26 Tdap 9 completed Veronica Infante APRN [address], [address], [place], [address], [email or web address] 03/19/2024 09:25:06 Pneumococcal conjugate PCV 13 0 completed Veronica Infante APRN [address], [address], [place], [address], [email or web address] 03/19/2024 09:25:07 Influenza, high-dose, trivalent, PF 9 completed Veronica Infante APRN [address], [address], [place], [address], [email or web address] 03/19/2024 09:25:07 Past Encounters Encounter ID Performer Location Encounter Start Date Encounter Closed Date Diagnosis/Indication Diagnosis SNOMED-CT Code Diagnosis ICD10 Code Diagnosis Note [id number] HARDEEP Nguyễn [facility] Primary [facility] [place] [address] [facility] [address] [place] [address] 09/01/2021 00:00:00 09/01/2021 14:18:30 [id number] [facility] [place] [address] [facility] [address] [place] [address] 11/17/2021 00:00:00 11/17/2021 16:11:06 [id number] Floresita Ramsey MD [facility] [place] [address] [facility] [address] [place] [address] 08/25/2023 15:57:20 08/25/2023 16:53:01 Adult health examination 216018854 Z00.00 Screening for disorder 080103140 Z13.9 Hyperlipid emia screening 304569129 Z13.220 Essential hypertension 35513107 I10 Screening for malignant neoplasm of prostate 424793456 Z12.5 Diabetes m ellitus screening 358216432 Z13.1 [id number] Jefferson dalton MD [facility] Primary Care [facility] [address] [facility] [address] [place] [address] 03/27/2024 10:18:15 03/27/2024 11:28:48 Hyperlipidemia 54094335 E78.5 Hepatitis C screening 41 8126071 Z11.59 Screening for malignant neoplasm of colon 761489942 Z12.11 Tinea pedis 4562328 B35. 3 Chronic ob structive pulmonary disease 99109556 J44.9 Refuses pulmonolog ist. [id number] PIETRO Shaw [facility] Primary Care [facility] [address] [facility] [address] [place] [address] 08/19/2024 10:48:25 08/19/2024 11:35:41 Spasm of back muscles 878014291 M62.830 Low back pain 731063151 M54.50 Coronary atherosclerosis 117094854 I25.10 Cardiac de fibrillator in situ 846825857 Z95.810 Health Concerns Section Related Observation LastModified by Organization Detai ls LastModified Time None Recorded Concern Status LastModified by Organization Details LastModified Time None Recorded Advance Directives Directive None Recorded Payers Insurance Date Sequence Insurance Name Policy Number Policy Paul Covered Member ID Paul Member ID Guarantor Name 08/16/2024 1 [place] Lamont Bustillo [id number] Lamont Bustillo 03/27/2024 2 [facility] (MEDICARE SUPPLEMENT) Lamont Bustillo [id number] Lamont Bustillo Notes Date Note Type Note Provider Name and Address Organization Details Recorded Time 08/25/2023 text/html pt is here for medicare wellness PIETRO Goddard [address], [place], [address], [email or web address] 08/29/2023 08:09:24 03/27/2024 text/html Lamont presents today to establish care. He states that he has bruising to his arms. He also states that he has a rash area to his foot that is dry and itching. 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 Veronica Infante APRN [address], [facility] [address], [place], [address], [email or web address] 03/27/2024 11:16:36 08/19/2024 text/html Patient is a 74 year old male that presents to the office to establish care. Patient was previously seeing PIETRO Teague. Patient sees Cardiology every months. Patient was recently in the hospital for muscle spasms, was prescribed Hydrocodone, Prednisone and Methocarbamol. PIETRO Shaw [address], [facility] [address], [place], [address], [email or web address] 08/19/2024 12:15:26
--- OUTSIDE RECORDS SUMMARY | 2024-11-04 11:02 | XMS_ITS | Clinical Summary ---
Author Organization [place] [id number] [facility] Address [address] [place] [address] Care Team Providers Care Environmental Field Services Technician Name Role Phone No, Physician Unavailable Vika Landa Primary Care Provider [phone] Allergies No known active allergies Medications albuterol [...] enteric coated tabletIndications: Coronary artery disease involving [place] coronary artery of [place] heart with angina pectoris Take 1 tablet (81 mg total) by mouth daily 90 tablet 3 10/15/19 21 Active atorvastatin (LIPITOR) 80 mg tabletIndications: Coronary artery disease involving [place] coronary artery of [place] heart with angina pectoris Take 1 tablet [...] CDT): s/p ICD placement (Medtronic). Follow with Head Banquet Waitress Dr. Palomo at [facility]. ECHO in 02/2018 with reports of [...] year. 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 Most recent NSTEMI in 02/2018 managed medically without intervention. - Increasing atorvastatin from 20mg to 80mg given apparent worsening of CAD occlusive disease of [place] coronaries. Continue on Aspirin 81mg QD History [...] Encounters Date Type Department Care Team Description 09/18/2024 9:45 AM CDT Ancillary Procedure [facility] Medical Group Cardiology [address] [place] [id number] 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 [Z95.810] (Primary Dx); Ischemic cardiomyopathy; NSVT (nonsustained ventricular tachycardia) (HCC) from Last 3 Months Immunizations Immunization Administration Dates Next Due Influenza, Trivalent, High D ose, Split, Preservative Free, Intramuscular 03/13/2019 Pneumococcal Conjugate PCV 13 06/12/2019 Tdap 03/13/2019 Medical History Medical History Date Comments Animal scratch 03/13/2019 NSTEMI (non-ST elevated myoc ardial infarction) (HCC) 08/28/2018 Encounter due to AICD at end of battery life 08/30/2018 Added automatically from req uest for surgery Pseudoaneurysm following procedure 09/03/2018 S/P coronary artery [...] on file Legal Sex Male 2:13 AM DRAPERY INSPECTOR Gender Identity Not on file Sexual Orientation Not on file Obstetrics History Last Filed Vital Signs Vital Sign Reading Time Taken Comments Blood Pressure 118/74 04/26/2024 2:34 PM DRAPERY INSPECTOR Pulse 75 04/26/2024 2:34 PM DRAPERY INSPECTOR Temperature 36.5 C (97.7 F) 06/12/2019 10:19 AM DRAPERY INSPECTOR Respiratory Rate 18 06/12/2019 10:19 AM DRAPERY INSPECTOR Oxygen Saturation 100% 04/26/2024 2:34 PM DRAPERY INSPECTOR Inhaled Oxygen Concentration - - Weight 98.4 kg (217 lb) 04/26/2024 2:34 PM DRAPERY INSPECTOR Height 180.3 cm (5' 11) 04/26/2024 2:34 PM DRAPERY INSPECTOR Body Mass Index 30.27 04/26/2024 2:34 PM DRAPERY INSPECTOR Plan of Treatment Health Maintenance Due Date [...] 01/12/2022 11/17/2021, 06/12/2019, 11/19/2004 Influenza Vaccine (#1) 2024 9, 03/17/2004, 03/09/2001 DTaP/Tdap/Td Vaccine (3 - [...] telling anyone). Medical Devices Implanted Type Area Web Site Specialist Device Identifier Shelf Expiration Date Model / Serial / Lot Medtronic Cardiac Rhythm Mgmt [id number] Visia Af Mri Surescan [id number] Defibrillator Cardiac - [id number] - [id number] Implanted:Qty: 1 on 09/06/2018 by Temo Mederos MD at [facility] ICD N/A: Chest Medtronic Cardiac Rhythm Mgmt 11/05/2019 [id number] / [id number] / [employer] Shantelle [id number] Synergy 3.5mm 16mm 144cm Radiopaque 1 Access Port Inflation Lumen - [id number] - [id number] Implanted:Qty: 1 on 08/28/2018 by Abdirashid Larsen MD PhD at [facility] Stent N/A: Coronary [employer] Shantelle 05/13/2020 [id number] / [id number] / [id number] [employer] [id number] Synergy 2.5mm 38mm 144cm Radiopaque 1 Access Port Inflation Lumen - [id number] - [id number] Implanted:Qty: 1 on 08/28/2018 by Abdirashid Larsen MD PhD at [facility] Stent N/A: Coronary [employer] Shantelle 06/06/2020 [id number] / [id number] / [id number] Icd Left: Chest Procedures Procedure Name Priority Date/Time Associated Diagnosis Comments DEVICE CHECK - REMOTE Routine 09/19/2024 6:17 PM CDT Ischemic cardiomyopathy NSVT (nonsustained ventricular tachycardia) (HCC) from Last 3 Months Results * DEVICE CHECK - REMOTE (09/19/2024 6:17 PM CDT) Anatomical Region Laterality Modality Other Narrative 09/20/2024 3:47 PM CDT Medtronic Visia Single ICD. Dx; ICM. Gen change 09/06/2018-Noheria, chronic lead 03/19/2007. Carelink remote monitoring. Routine VVI Carelink remote Interrogation of the patient's device demonstrates that the ICD is functioning appropriately according to the solutions architect consultant's recommendations. Appropriate battery voltage, charge time, shock impledances, lead impedances, stable ventricular pacing and sensing thresholds. There were no ventricular arrhythmias noted. 353 Atrial arrhythmias recorded, review of available iegm's reveals SR with frequent PACs and PVCs. See scanned report Next Carelink is scheduled for 12/25/2024. Carmen Wise RN us Ripa Humble Hurd MD CV CARDIAC SERVICES PRO CEDURES Final Result from Last 3 Months Insurance MEDICARE [facility] INSURANCE [facility] MEDICARE [facility] Address: [facility] [address] [place] [address] [employer] MEDICARE [facility] INSURANCE Advance Directives For more information, please contact: [phone] * Full Code (Latest Code Status on File) Date Activated Date Inactivated Comments 08/27/2018 8:59 PM 08/29/2018 10:12 PM Care Teams Environmental Field Services Technician Relationship Specialty Start Date End Date Vika Landa PA [address] [place] [address] PCP - General 10/14/21 No, Physician 08/27/18
--- OUTSIDE RECORDS SUMMARY | 2024-11-04 11:02 | XMS_ITS | Referral Summary ---
Author Organization [place] [id number] [facility] Address [address] [place] [address] Care Team Providers Care Chyron Operator Name Role Phone No, Physician Unavailable Vika Landa Primary Care Provider [phone] Encounters Date Type Department Care Team Description 09/18/2024 9:45 AM CDT Ancillary Procedure [facility] Medical Group Cardiology [address] [place] [id number] 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 [Z95.810] (Primary Dx); Ischemic cardiomyopathy; NSVT (nonsustained ventricular tachycardia) (HCC) from Last 3 Months Allergies No known [...] enteric coated tabletIndications: Coronary artery disease involving [place] coronary artery of quile[place] heart with angina pectoris Take 1 tablet (81 mg total) by mouth daily 90 tablet 3 10/15/19 21 Active atorvastatin (LIPITOR) 80 mg tabletIndications: Coronary artery disease involving [place] coronary artery of quileute heart with angina pectoris Take 1 tablet [...] CDT): s/p ICD placement (Medtronic). Follow with Concrete Finisher Apprentice Dr. Palomo at [facility]. ECHO in 02/2018 with reports of severe [...] CABG (1998) and stentings. Known graft and quile[place] artery occlusive disease. Most recent NSTEMI in 02/2018 managed medically without intervention. - Increasing atorvastatin from 20mg to 80mg given apparent worsening of CAD occlusive disease of quile[place] coronaries. 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 Gender Identity Not on file Sexual Orientation Not on file Last Filed Vital Signs Vital Sign Reading Time Taken Comments Blood Pressure 118/74 04/26/2024 2:34 PM SCHOOL COMMUNITY RELATIONS COORDINATOR Pulse 75 04/26/2024 2:34 PM SCHOOL COMMUNITY RELATIONS COORDINATOR Temperature 36.5 C (97.7 F) 06/12/2019 10:19 AM SCHOOL COMMUNITY RELATIONS COORDINATOR Respiratory Rate 18 06/12/2019 10:19 AM SCHOOL COMMUNITY RELATIONS COORDINATOR Oxygen Saturation 100% 04/26/2024 2:34 PM SCHOOL COMMUNITY RELATIONS COORDINATOR Inhaled Oxygen Concentration - - Weight 98.4 kg (217 lb) 04/26/2024 2:34 PM SCHOOL COMMUNITY RELATIONS COORDINATOR Height 180.3 cm (5' 11) 04/26/2024 2:34 PM SCHOOL COMMUNITY RELATIONS COORDINATOR Body Mass Index 30.27 04/26/2024 2:34 PM SCHOOL COMMUNITY RELATIONS COORDINATOR Plan of Treatment Not on file [...] telling anyone). Medical Devices Implanted Type Area [facility] Attendant Device Identifier Shelf Expiration Date Model / Serial / Lot Medtronic Cardiac Rhythm Mgmt [id number] Visia Af Mri Surescan [id number] Defibrillator Cardiac - [id number] - [id number] Implanted:Qty: 1 on 09/06/2018 by Temo Mederos MD at [facility] ICD N/A: Chest Medtronic Cardiac Rhythm Mgmt 11/05/2019 [id number] / [id number] / [employer] Shantelle [id number] Synergy 3.5mm 16mm 144cm Radiopaque 1 Access Port Inflation Lumen - [id number] - [id number] Implanted:Qty: 1 on 08/28/2018 by Abdirashid Larsen MD PhD at [facility] Stent N/A: Coronary [employer] [place] [employer] Shantelle 05/13/2020 [id number] / [id number] / [id number] [employer] [place] [id number] Synergy 2.5mm 38mm 144cm Radiopaque 1 Access Port Inflation Lumen - [id number] - [id number] Implanted:Qty: 1 on 08/28/2018 by Abdirashid Larsen MD PhD at [facility] Stent N/A: Coronary [place] [employer] Shantelle 06/06/2020 [id number] / [id number] / [id number] Icd Left: Chest Procedures Procedure Name Priority [...] ICD is functioning appropriately according to the type soldering machine tender's recommendations. Appropriate battery voltage, charge time, shock [...] Result from Last 3 Months Insurance MEDICARE [facility] INSURANCE [facility] MEDICARE [facility] MEDICARE [facility] INSURANCE Advance Directives For more information, please contact: [phone] * Full Code (Latest Code Status on File) Date Activated Date Inactivated Comments 08/27/2018 8:59 PM 08/29/2018 10:12 PM Care Teams Chyron Operator Relationship Specialty Start Date End Date Vika Landa PA [address] [place] [address] [place] [address] PCP - General 10/14/21 No, Physician 08/27/18
--- OUTSIDE RECORDS SUMMARY | 2024-11-04 11:02 | XMS_ITS | Clinical Summary ---
Author Organization [facility] Address [address] [facility] [place] [address] Care Team Providers Care Lead Ramp Service Man Name Role Phone Unavailable Primary Care Provider [...] Encounters Date Type Department Care Team Description 10/08/2024 External Device Data STL ABSTRACTION Provider, Abstract 09/12/2024 External Device Data STL ABSTRACTION Provider, Abstract 09/12/2024 External Device Data ST[place] ABSTRACTION Provider, Abstract 09/11/2024 External Device Data ST[place] ABSTRACTION Provider, Abstract 09/11/2024 External Device Data ST[place] ABSTRACTION Provider, Abstract 09/10/2024 External Device Data ST[place] ABSTRACTION Provider, Abstract 08/06/2024 External Device Data ST[place] ABSTRACTION Provider, Abstract from Last 3 Months Family History * [...] on file Legal Sex Male 8:57 AM HOSE INSPECTOR AND PATCHER Gender Identity Not on file Sexual Orientation Not on file Last Filed Vital Signs Vital Sign Reading Time Taken Comments Blood Pressure 117/77 06/18/2024 10:35 AM HOSE INSPECTOR AND PATCHER Pulse 69 06/18/2024 10:35 AM HOSE INSPECTOR AND PATCHER Temperature 36.8 C (98.3 F) 06/18/2024 10:35 AM HOSE INSPECTOR AND PATCHER Respiratory Rate 17 06/18/2024 10:3 5 AM HOSE INSPECTOR AND PATCHER Oxygen Saturation 97% 06/18/2024 10: 35 AM HOSE INSPECTOR AND PATCHER Inhaled Oxygen Concentration - - Weight 98.8 kg (217 lb 12.8 oz) 025 10:35 AM HOSE INSPECTOR AND PATCHER Height 180.3 cm (5' 11) 06/18/2024 10: 35 AM HOSE INSPECTOR AND PATCHER Body Mass Index 30.38 06/18/2024 10:35 AM HOSE INSPECTOR AND PATCHER Plan of Treatment Upcoming Encounters Date Type Department Care Team (Late st Contact Info) Description 11/04/2024 11:45 AM CDT Office Visit [facility] - [place] [address] [facility] [facility] [address] [place] [address] Fortunato Kathleen MD [address] [facility] [address] [place] [address] Health Maintenance Due Date Last [...] of 2 - PPSV23) 08/07/2019 06/12/2019, 11/19/2004 RSV VACCINE (60+ or ) (1 - 1-dose 75+ series) 2024 INFLUENZA VACCINE (#1) 2024 03/13/2019 DTAP/TDAP/TD VACCINES (2 - Td or Tdap) 03/13/2029, 11/19/2004 Insurance MEDICARE PART A AND B
--- OUTSIDE RECORDS SUMMARY | 2024-11-04 11:02 | XMS_ITS | Encounter Summary ---
Author Name [facility] Organization [facility] [place] Address [address] [place] [address] Support Name Relationship Address Phone WINSTON PERALTA Next of Kin [address] [place] [address] KATHRYN WINSTON Emergency Contact [address] [place] [address] Selected Encounter This section includes the information on record at [place] for the Encounter. Date/Time Encounter Type Encounter Description Reason Provider Source Oct 07, 2024 03:29 PM Outpatient Encounter GENERAL INTERNAL MEDICINE [facility] Encounter Template Text not used by [place] Social History: Smoking Status (Most current) and Tobacco Use (All prior to encounter date) This section includes the most current, and the historical, smoking and tobacco- related health factors from the [place] facility where the Encounter took place. Current Smoking Status This section includes the most current smoking, or tobacco-related health factor, from the [place] facility where the Encounter took place. Date/Time Current Smoking Status Comment Elisabet deng Apr 14, 2011 02:34 PM CURRENT TOBACCO USER [facility] Tobacco Use History This section includes a history of the smoking, or tobacco-related health factors, that were collected on or before the date of the Encounter. The data comes from the [place] facility where the Encounter took place. Date/Time Smoking Status/Tobacco Use Comment Philip barajas Apr 14, 2011 02:34 PM TOBACCO MEDS OFFERED BUT DECLINED [facility] Aug 10, 2009 10:49 AM CURRENT TOBACCO USER [facility] May 02, 2008 02:29 PM CURRENT TOBACCO USER [facility] Mar 20, 2007 01:46 PM CURRENT TOBACCO USER HE STATED HE KNOWS HE NEEDS TO STOP SMOKING AND HE IS WILLING TO TRY,HAS MORE INVOLVED CARDIAC PROBLEMS. [facility] Jan 25, 2007 12:21 PM CURRENT TOBACCO USER [facility] Jan 25, 2007 12:21 PM TOBACCO OFFERRED PT MEDS (PROVIDER) [facility] Jan 25, 2007 12:21 PM TOBACCO OFFERRED STOP SMOKING CLINIC [facility] Jan 16, 2007 12:00 PM CURRENT TOBACCO USER [facility] Nov 28, 2006 10:47 PM IC/PATIENT IS SMOKER [facility] Nov 28, 2006 10:47 PM PATIENT GIVEN TOBACCO HANDOUT [facility] Jul 01, 2005 04:43 PM CURRENT TOBACCO USER [facility] Jul 01, 2005 04:43 PM SMOKER 1-2 PACKS [facility] Nov 19, 2004 10:48 AM CURRENT TOBACCO USER [facility] Nov 19, 2004 10:48 AM SMOKER 1-2 PACKS [facility] Nov 19, 2004 10:48 AM TOBACCO PRECONTEMPLATION STAGE [facility] Aug 19, 2004 10:28 AM CURRENT TOBACCO USER [facility] Aug 19, 2004 10:28 AM SMOKER 1-2 PACKS [facility] Aug 19, 2004 10:28 AM TOBACCO PRECONTEMPLATION STAGE [facility] Jul 19, 2004 02:48 PM CURRENT TOBACCO USER [facility] Jul 19, 2004 02:48 PM SMOKER 1-2 PACKS [facility] Jul 19, 2004 02:48 PM TOBACCO PRECONTEMPLATION STAGE [facility] Mar 17, 2004 01:03 PM CURRENT TOBACCO USER [facility] Mar 17, 2004 01:03 PM SMOKER 1-2 PACKS [facility] Advance Directives: All historical and current Section Date Range: From patient's date of to the date document was created. This section includes ALL of a patient's completed or amended VA Advance and Rescinded Directives. The entries below indicate that a directive exists for the patient, but an actual copy is not included with this document. The data comes from all [place] facilities. Date Advance Directives Provider Source Jul 04, 2005 ADVANCE DIRECTIVE BOBBI DUFFY IS [facility] Encounter Notes: All associated encounter notes This section contains the clinical notes associated to the Encounter. Date/Time Encounter Note(s) Provider Source Aug 15, 2024 03:29 PM NONVA NOTE: LOCAL TITLE: COMMUNITY CARE-[facility] SELF PRESENTING CARE COORD PLAN STANDARD TITLE: NONVA NOTE DATE OF NOTE: AUG 15, 2024@15:29 ENTRY DATE: OCT 07, 2024@15:29:33 AUTHOR: BRIAN NAVARRO EXP COSIGNER: URGENCY: STATUS: COMPLETED COMMUNITY CARE-[facility] SELF PRESENTING CARE COORD PLAN 657 STL Has ADDENDA Emergency Notification Intake Date Presenting to the Facility: Jul Method of Contact: Notified from [employer] worklist Notification ID: [id number] Referral #: Closed - Submit for [facility] Hospital Name: Hospital: [facility] Address: [address] [place] [address] City: [place] State: [place] Zip Code: [address] [facility] Facility Point of Contact: Name: Taina Lakhani Chief complaint: Back Pain Primary Diagnosis: Disposition Unknown at time of intake note entry Faxed request for records to [facility] /mandy/ BRIAN NAVARRO [facility] FENDER REPAIRER Signed: 10/07/2024 15:32 10/09/2024 ADDENDUM STATUS: COMPLETED Records r/t this episode of care can be found in [facility]. Please review attached DC summary and place any necessary referrals/consults DERREK to avoid non-payment for follow-up services. // JULY [place] ADVANCED GOLDBEATER Signed: 10/09/2024 11:33 BRIAN NAVARRO [facility]
--- OUTSIDE RECORDS SUMMARY | 2024-11-04 11:02 | XMS_ITS | Continuity of Care Document ---
Author Name [facility] Organization [facility] Care Team Providers Care Educational Institution Curator Name Role Phone [facility] Unavailable Unavailable Problems Combined list of problems from Department of Defense and [facility] Affairs facilities. It does not include entries that were removed or entered in error. Problem Status Onset Date Problem Type Date of Resolution Comments Source Fungus, disease NEC Active 1 Condition Dec 04, 2000 Entered By: ALEXA BO Comment: typical jock itch involving inguinal area [facility] Acute myocardial infarction Inactive 9 Condition 12/04/2000 Dec 04, 2000 Entered By: ALEXA BO Comment: CABG 3 vessel post mi [facility] Acute myocardial infarction, unspecified site, episode of care unspecified (ICD- Active Condition [facility] ANGINA PECTORIS NEC/NOS Active Condition [...] LHC/grafts. Plan PTCA prox LAD in July [facility] DIAPHRAGMATIC HERNIA Active Condition [place] [facility] ESOPHAGEAL REFLUX Active [place] [facility] Hearing loss * (ICD-9-CM 389.9) Active Condition [facility] Hyperlipidemia * (ICD-9-CM 272.4) Active Condition [facility] Impacted cerumen * (ICD-9-CM 380.4) Active Condition [facility] Issue of Repeat Prescriptions (ICD-9-CM V68.1) Active Condition [facility] Nicotine Dependence (ICD-9-CM 305.1) Active Condition [facility] Old Myocardial Infarction (ICD-9-CM 412.) Active Condition [facility] Otitis Externa, Acute (ICD-9-CM 380.00) Active Condition [facility] Personal History of Tobacco Use (ICD-9-CM V15.82) Active Condition [facility] Postsurgical Aortocoronary Bypass Status (ICD-9-CM V45.81) Active Condition Jul 06 Entered By: ARLYN TAVERAS Comment: 1998: (BABIN-LAD, SVG-OM, SVG>RCA) [facility] Postsurgical Percutaneous Transluminal Coronary Angioplasty Status (ICD-9-CM V45 Active Condition Jul 26, 2005 Entered By: ANNA LOWERYI Comment: 07/26/05: Rotoblation/ PTCA/Cypher 2.5 X 8 stent X 1 Prox LAD [facility] S/P AICD Active Condition [facility] Medications Combined list of outpatient medications from [...] A DAY ORAL ACTIVE JOSE BABCOCK 2006 [facility] CARVEDILOL 25MG TAB TAKE ONE-HALF TABLET BY MOUTH TWICE A DAY ORAL ACTIVE DANIELLE DAMICO 2011 [facility] LISINOPRIL 10MG TAB TAKE ONE-HALF TABLET BY MOUTH ONCE A DAY ORAL ACTIVE DANIELLE DAMICO AMMARIE T 2011 [facility] Immunizations Combined list of available immunizations from the Department of Defense and Veterans Affairs facilities. Immunization Series Date Given Administered By Site Reaction Lot Number CVX Code Drug Pattern Finisher Status Comments Source PNEUMOCOCCAL, UNSPECIFIED FORMULATION 2004 109 complet ed [facility] TD(ADULT) UNSPECIFIED FORMULATION 2004 139 complet ed [facility] INFLUENZA, UNSPECIFIED FORMULATION 2003 88 complet ed [facility] FLU,3 YRS (HISTORICAL) 2000 88 complet ed [facility] Encounters Combined list of: 1) Encounters from Department of Veterans Affairs facilities going backup to the last 18 months, not all [place] inpatient encounters are included; 2) Encounters from the Department of [facility] facilities going backup to 280 months. Location Location Details Encounter Type Encounter Number Reason For Visit Attending Provider ADM Date DC Date Status Disposition Source [facility] Outpatient Encounter [id number] 01/30 [facility] Outpatient Encounter [id number] MONI NOLAND 10/07 [facility] Social History Combined list of available smoking, tobacco, and other social history from [facility] and [facility] facilities. Social History Type Response Date Comment Source Tobacco smoking status NHIS CURRENT TOBACCO USER 04/14/2011 [facility] History of tobacco use TOBACCO MEDS OFFERED BUT DECLINED 04/14/2011 [facility] History of tobacco use CURRENT TOBACCO USER 08/10/2009 [facility] History of tobacco use CURRENT TOBACCO USER 05/02/2008 [facility] History of tobacco use CURRENT TOBACCO USER 03/20/2007 HE STATED HE KNOWS HE NEEDS TO STOP SMOKING AND HE IS WILLING TO TRY,HAS MORE INVOLVED CARDIAC PROBLEMS. [facility] History of tobacco use TOBACCO OFFERRED PT MEDS (PROVIDER) 01/25/2007 [facility] History of tobacco use CURRENT TOBACCO USER 01/16/2007 [facility] History of tobacco use IC/PATIENT IS SMOKER 11/28/2006 [facility] History of tobacco use CURRENT TOBACCO USER 07/01/2005 [facility] History of tobacco use CURRENT TOBACCO USER 11/19/2004 [facility] History of tobacco use CURRENT TOBACCO USER 08/19/2004 [facility] History of tobacco use CURRENT TOBACCO USER 07/19/2004 [facility] History of tobacco use CURRENT TOBACCO USER 03/17/2004 [facility] History of tobacco use CURRENT SMOKER 12/04/2000 [facility] Advance Directives List of completed, amended, or rescinded Advance Directives on record at Department of Veterans Affairs facilities. An actual copy of the Directive is not included. Date Advance Directive Provider Source 07/04/2005 ADVANCE DIRECTIVE BOBBI DUFFY [facility]
[2024-11-04 11:10] LABS: Hematocrit 47.9 % (42.0-52.0); Hemoglobin 16.1 g/dL (14.0-18.0); Mean Corpuscular HGB Conc 33.6 g/dl (32-36); Mean Corpuscular Hemoglobin 30.4 pg (26-34); Mean Corpuscular Volume 90.5 fl (80-100); Platelet Count Result 175 k/mm3 (150-375); Red Blood Count 5.29 M/mm3 (4.6-6.20); White Blood Count 6.7 K/mm3 (4.5-10.0)
== END 2024-11-04 10:55 | disposition home or self-care (01) ==
PROVIDERS: Visit Provider Internal Medicine Hematology & Oncology
DX: D75.1 Secondary polycythemia (principal)
CPT/HCPCS: 36415; 85027

== ENCOUNTER 2024-11-30 23:52 | Emergency (ER) | payer MEDICARE, OTHER, SELFPAY ==
--- NOTE | ~2024-11-30 | CT_ITS ---
EXAMINATION: CT brain wo con DATE: 12/01/2024 00:32 INDICATION: Dizziness TECHNIQUE: Computed tomography (CT) of the head was performed without intravenous contrast. Sagittal and coronal reconstructions were performed. The mA was adjusted according to patient size. Iterative reconstruction technique was employed. The dose-length product was 681.00 mGy-cm. COMPARISON: None FINDINGS: No acute intracranial hemorrhage, acute infarction or abnormal extra axial fluid collection. Symmetri c prominence of the sulci and subarachnoid spaces overlying the convexities consistent with mild age- appropriate diffuse cerebral volume loss. Ventricles are normal and symmetric. No mass/mass effect. Minimal bilateral mastoid effusions. There is debris/permanent at the right external auditory canal. The orbits and paranasal sinuses are normal. Intracranial calcified cerebral atherosclerosis is noted . IMPRESSION: 1. Normal aging brain. No acute intracranial process. Reviewed, dictated and finalized at location A.
--- NOTE | ~2024-11-30 | XR_ITS ---
EXAMINATION: XR chest 1V portable DATE: 12/01/2024 00:59 INDICATION: Dizziness TECHNIQUE: frontal view of the chest was obtained. COMPARISON: Chest radiograph dated 09/07/2021 FINDINGS: The lungs remain clear with no focal airspace opacities, pulmonary edema, pleural effusion or pneumot horax. Cardiomegaly. Median sternotomy wires and mediastinal surgical clips are seen, likely from marge or coronary artery bypass grafting. Single lead cardiac pacemaker/AICD with lead tip at the right britney tricle. Old healed left clavicle fracture deformity. IMPRESSION: 1. Cardiomegaly. No acute cardiopulmonary disease. Reviewed, dictated and finalized at location A.
--- NOTE | ~2024-11-30 | CT_ITS ---
EXAMINATION: CTA BRAIN/CAROTID DATE: 12/01/2024 00:32 INDICATION: Acute stroke with left vision loss in left upper extremity weakness TECHNIQUE: Computed tomographic angiography (CTA) of the head and neck was performed with 100 mL Omni paque-350 intravenous contrast. Multiplanar reconstructions and maximum intensity projection 3D-recon structions of the carotid arteries and of the intracranial arteries were created by the technologist on a separate workstation. Automated exposure control and iterative reconstruction technique were emp loyed.The dose-length product was 1129.86 mGy-cm. COMPARISON: None. FINDINGS: Carotid arteries: Mild nonhemodynamically significant atherosclerotic plaque along the normal caliber aortic arch and t he great vessels arising from the arch. There is 40% stenosis of the right carotid bulb relative to n ormal distal artery lumen diameter (NASCET criteria). There is 10% stenosis of the left carotid bulb relative to normal distal artery lumen diameter. 1.5 cm rim calcified left thyroid nodule. Cervical s oft tissues are otherwise unremarkable. Mild cervical spondylosis. Expiratory phase of imaging in the lungs with mild dependent atelectasis in the visualized upper lungs and increased AP diameter of the trachea with concave posterior wall. Intracranial arteries Right vertebral artery is mildly dominant. There is nonhemodynamically significant atherosclerotic pl aque at the bilateral carotid siphons. There is no hemodynamically significant stenosis in the verteb ral, basilar and internal carotid arteries. Both A1 and P1 segments are patent. There are no aneurys ms identified. Cerebral arterial arborization appears symmetric. IMPRESSION: 1. 40% stenosis of the right carotid bulb relative to normal distal artery lumen diameter (NASCET cri teria). 2. 10% stenosis of the left carotid bulb relative to normal distal artery lumen diameter. 3. Unremarkable cerebral CT angiogram with no hemodynamically significant stenosis, thrombosis or ane urysm. 4. Indeterminate 1.5 cm rim calcified left thyroid nodule nodule which would meet criteria for ultras ound-guided biopsy. Reviewed, dictated and finalized at location A. IMPRESSION: 1. 40% stenosis of the right carotid bulb relative to normal distal artery lume n diameter (NASCET criteria). 2. 10% stenosis of the left carotid bulb relative to normal distal artery lumen diameter. 3. Unremarkable cerebral CT angiogram with no hemodynamically significant steno sis, thrombosis or aneurysm. 4. Indeterminate 1.5 cm rim calcified left thyroid nodule nodule which would me et criteria for ultrasound-guided biopsy.
--- OUTSIDE RECORDS SUMMARY | 2024-11-30 23:56 | XMS_ITS | Clinical Summary ---
Author Organization [facility] Jackmarty pate Heath Address [address] [place] [address] Care Team Providers Care Deportation Examiner Name Role Phone Unavailable Primary Care Provider [...] Encounters Date Type Department Care Team Description 11/27/2024 External Device Data STL ABSTRACTION Provider, Abstract 11/04/2024 11:45 AM CDT Office Visit [facility] Oncology and Hematology - Ariel [address] [place] [phone] Fortunato Kathleen MD Polycythemia, secondary (Primary Dx) 10/08/2024 External Device Data STL ABSTRACTION Provider, [...] on file Legal Sex Male 8:57 AM JEWEL SETTER Gender Identity Not on file Sexual Orientation Not on file Last Filed Vital Signs Vital Sign Reading Time Taken Comments Blood Pressure 120/79 11/04/2024 11:13 AM CDT Pulse 83 11/04/2024 11:13 AM CDT Temperature 36.4 C (97.5 F) 11/04/2024 11:13 AM CDT Respiratory Rate 16 11/04/2024 11:13 AM CDT Oxygen Saturation 96% 11/04/2024 11:13 AM CDT Inhaled Oxygen Concentration - - Weight 97.1 kg (214 lb) 11/04/2024 11:13 AM CDT Height 180.3 cm (5' 11) 06/18/2024 10:35 AM JEWEL SETTER Body Mass Index 29.85 06/18/2024 10:35 AM JEWEL SETTER Plan of Treatment Upcoming Encounters Date Type Department Care Team (Late st Contact Info) Description 05/12/2025 11:00 AM JEWEL SETTER Office Visit [facility] Oncology and Hematology - Ariel [address] [place] [address] Fortunato Kathleen MD [address] [facility] [address] [place] [phone] Health Maintenance Due Date Last Done Comments COLORECTAL SCREENING 1994 Colorectal Cancer Screening 1994 FIT-DNA Q 3 years 1994 FIT/FOBT Q 1 year 1994 Flex Sig/CT Colonography Q 5 years 1994 Lung Cancer Screening 07/01/1999 ZOSTER VACCINE (1 of 2) 07/01/1999 Abdominal Aortic Aneurysm (A AA) Screening 2014 PNEUMOCOCCAL VACCINE 50+ YEA RS (2 of 2 - PPSV23, PCV20, or PCV21) 01/12/2022 11/17/2021, 06/12/2019, 11/19/2004 RSV VACCINE (60+ or ) (1 - 1-dose 75+ series) 2024 INFLUENZA VACCINE (#1) 2024 03/13/2019 DTAP/TDAP/TD VACCINES (3 - T d or Tdap) 11/18/2031 11/17/2021, 03/13/2019, 11/19/2004 Insurance MEDICARE PART A AND B [address] [place] [id number]
--- OUTSIDE RECORDS SUMMARY | 2024-11-30 23:56 | XMS_ITS | Continuity of Care Document ---
Author Name [facility] Organization [facility] Care Team Providers Care Marketing Specialist Name Role Phone [facility] Unavailable Unavailable Problems Combined list of problems from Department of Defense and [facility] Affairs facilities. It does not include entries that were removed or entered in error. Problem Status Onset Date Problem Type Date of Resolution Comments Source Fungus, disease NEC Active 1 Condition Dec 04, 2000 Entered By: ALEXA BO Comment: typical jock itch involving inguinal area [facility] Acute myocardial infarction Inactive 9 Condition 12/04/2000 Dec 04, 2000 Entered By: ALEXA BO Comment: CABG 3 vessel post mi [facility] Acute myocardial infarction, unspecified site, episode of care unspecified (ICD- Active Condition [facility] ANGINA PECTORIS NEC/NOS [...] LHC/grafts. Plan PTCA prox LAD in July [facility] DIAPHRAGMATIC HERNIA Active Condition [place] ESOPHAGEAL REFLUX Active [place] Hearing loss * (ICD-9-CM 389.9) Active Condition [facility] Hyperlipidemia * (ICD-9-CM 272.4) Active Condition [facility] Impacted cerumen * (ICD-9-CM 380.4) Active Condition [facility] Issue of Repeat Prescriptions (ICD-9-CM V68.1) Active Condition [facility] Nicotine Dependence (ICD-9-CM 305.1) Active Condition [facility] Old Myocardial Infarction (ICD-9-CM 412.) Active Condition [facility] Otitis Externa, Acute (ICD-9-CM 380.00) Active Condition [facility] Personal History of Tobacco Use (ICD-9-CM V15.82) Active Condition [facility] Postsurgical Aortocoronary Bypass Status (ICD-9-CM V45.81) Active Condition Jul 06 Entered By: ARLYN TAVERAS Comment: 1998: (BABIN-LAD, SVG-OM, SVG>RCA) [facility] Postsurgical Percutaneous Transluminal Coronary Angioplasty Status (ICD-9-CM V45 Active Condition Jul 26, 2005 Entered By: ANNA LOWERYI Comment: 07/26/05: Rotoblation/ PTCA/Cypher 2.5 X 8 stent X 1 Prox LAD [facility] S/P AICD Active Condition [facility] Medications Combined list of outpatient [...] A DAY ORAL ACTIVE JOSE BABCOCK 2006 [facility] CARVEDILOL 25MG TAB TAKE ONE-HALF TABLET BY MOUTH TWICE A DAY ORAL ACTIVE DANIELLE DAMICO 2011 [facility] LISINOPRIL 10MG TAB TAKE ONE-HALF TABLET BY MOUTH ONCE A DAY ORAL ACTIVE DANIELLE DAMICO AMMARIE T 2011 [facility] Immunizations Combined list of available immunizations from the Department of Defense and Veterans Affairs facilities. Immunization Series Date Given Administered By Site Reaction Lot Number CVX Code Drug Head Of Quality Status Comments Source PNEUMOCOCCAL, UNSPECIFIED FORMULATION 2004 109 complet ed [facility] TD(ADULT) UNSPECIFIED FORMULATION 2004 139 complet ed [facility] INFLUENZA (HISTORICAL) 2003 88 complet ed [facility] FLU,3 YRS (HISTORICAL) 2000 88 complet ed [facility] Encounters Combined list of: 1) Encounters from Department of Veterans Affairs facilities going backup to the last 18 months, not all [place] inpatient encounters are included; 2) Encounters from the Department of [facility] facilities going backup to 280 months. Location Location Details Encounter Type Encounter Number Reason For Visit Attending Provider ADM Date DC Date Status Disposition Source [facility] Outpatient Encounter [id number] 01/30 [facility] N [facility] Outpatient Encounter [id number] MONI NOLAND 10/07 [facility] Outpatient Encounter [id number] 11[facility]11 [facility] Social History Combined list of available smoking, tobacco, and other social history from Department of [facility] and Veterans Affairs facilities. Social History Type Response Date Comment Source Tobacco smoking status NHIS CURRENT TOBACCO USER 04/14/2011 [facility] History of tobacco use TOBACCO MEDS OFFERED BUT DECLINED 04/14/2011 [facility] History of tobacco use CURRENT TOBACCO USER 08/10/2009 [facility] History of tobacco use CURRENT TOBACCO USER 05/02/2008 [facility] History of tobacco use CURRENT TOBACCO USER 03/20/2007 HE STATED HE KNOWS HE NEEDS TO STOP SMOKING AND HE IS WILLING TO TRY,HAS MORE INVOLVED CARDIAC PROBLEMS. [facility] History of tobacco use TOBACCO OFFERRED PT MEDS (PROVIDER) 01/25/2007 [facility] History of tobacco use CURRENT TOBACCO USER 01/16/2007 [facility] History of tobacco use IC/PATIENT IS SMOKER 11/28/2006 [facility] History of tobacco use CURRENT TOBACCO USER 07/01/2005 [facility] History of tobacco use CURRENT TOBACCO USER 11/19/2004 [facility] History of tobacco use CURRENT TOBACCO USER 08/19/2004 [facility] History of tobacco use CURRENT TOBACCO USER 07/19/2004 [facility] History of tobacco use CURRENT TOBACCO USER 03/17/2004 [facility] History of tobacco use CURRENT SMOKER 12/04/2000 [facility] Plan of Care List of future care activities from Department of [facility] Affairs facilities. Additional future care activities may be listed in the Assessment and Plan section. Date/Time Care Activity Care Activity Detail Facili ty 12/18/2024 AMBULATORY - MEDICINE AMBULATORY - MEDICI [facility] Advance Directives List of completed, amended, or rescinded Advance Directives on record at Department of [facility] Affairs facilities. An actual copy of the Directive is not included. Date Advance Directive Provider Source 07/04/2005 ADVANCE DIRECTIVE BOBBI DUFFY [facility]
--- OUTSIDE RECORDS SUMMARY | 2024-11-30 23:56 | XMS_ITS | Clinical Summary ---
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 heart with angina pectoris Take 1 tablet (80 mg total) by mouth daily 90 tablet 3 021 Active clopidogreL (PLAVIX) 75 mg tabletIndications :myocardial infarction prevention,cardio vascular disease Take 1 tablet (75 mg total) by mouth daily 90 tablet 3 021 Active budesonide-glycop yr-formoterol (Breztri Aerosphere) 160-9-4.8 mcg/actuation HFA aerosol inhaler Inhale 2 puffs 2 (two) times a day Active empagliflozin (JARDIANCE) 10 mg tabletIndications :type 2 diabetes mellitus Take 1 tablet (10 mg total) by mouth daily Active spironolactone (ALDACTONE) 25 mg tablet daily Active carvediloL (COREG) 25 mg tabletIndications :Ischemic cardiomyopathy Take 1 tablet (25 mg total) by mouth 2 (two) times a day with meals 025 2025 Active lisinopriL (PRINIVIL,ZESTRIL ) 20 mg tablet Take 1 tablet (20 mg total) by mouth daily 90 tablet 3 025 2025 Active albuterol 0.63 mg/3 mL nebulizer solutionIndicatio ns:Chronic obstructive pulmonary disease, unspecified COPD type (HCC) Take 3 mL (0.63 mg total) by nebulization every 6 (six) hours as needed for wheezing 75 mL 3 025 2025 Active albuterol HFA (ProAir HFA) 90 mcg/actuation inhalerIndication s:Chronic obstructive pulmonary disease, unspecified COPD type (HCC) Inhale 2 puffs every 4 (four) hours as needed for wheezing or shortness of breath 3 each 3 025 2025 Active furosemide (LASIX) 40 mg tabletIndications :Chronic HFrEF (heart failure with reduced ejection fraction) (HCC) Take 1 tablet (40 mg total) by mouth daily as needed (edema or shortness of breath) 90 tablet 1 025 Active albuterol 0.63 mg/3 mL nebulizer solutionIndicatio ns:Shortness of breath Take 3 mL (0.63 mg total) by nebulization every 6 (six) hours as needed for wheezing 75 mL 3 021 2024 Discontinued albuterol HFA (ProAir HFA) 90 mcg/actuation inhalerIndication s:Chronic obstructive pulmonary disease, unspecified COPD type (HCC) Inhale 2 puffs every 4 (four) hours as needed for wheezing or shortness of breath 3 Inhaler 3 021 2024 Discontinued furosemide (LASIX) 40 mg tablet Take 1 tablet (40 mg total) by mouth daily 30 tablet 11 023 2024 Discontinued(R eorder) Active Problems Problem Noted Date Diagnosed Date [...] CDT): s/p ICD placement (Medtronic). Follow with [facility] Pal[facility]. ECHO in 02/2018 with reports of [...] CABG (1998) and stentings. Known graft and lummi artery occlusive disease. Most recent NSTEMI in 02/2018 managed medically without intervention. - Increasing atorvastatin from 20mg to 80mg given apparent worsening of CAD occlusive disease of lummi coronaries. Continue on Aspirin 81mg QD History [...] Encounters Date Type Department Care Team Description 11/21/2024 10:30 AM CDT Office Visit [facility] Cardiology [address] [place] [address] Nilda Quiroga NP Chronic HFrEF (heart failure with reduced ejection fraction) ([facility]) (Primary Dx); Ischemic cardiomyopathy; ICD (implantable cardioverter-defibr illator) in place [Z95.810]; Coronary artery disease involving lummi coronary artery of lummi heart without angina pectoris; Chronic obstructive pulmonary disease, unspecified COPD type (HCC) 11/07/2024 Telephone [facility] [address] [place] [address] Nilda Quiroga NP 09/18/2024 9:45 AM CDT Ancillary Procedure [facility] [address] [facility] [address] [place] [phone] ICD (implantable cardioverter-defibr illator) in place [Z95.810] (Primary Dx); Ischemic cardiomyopathy; NSVT (nonsustained ventricular tachycardia) ([facility]) from Last 3 Months Immunizations Immunization Administration Dates Next Due Influenza, Trivalent, High D ose, Split, Preservative Free, Intramuscular 03/13/2019 Pneumococcal Conjugate PCV 13 06/12/2019 Tdap 03/13/2019 Medical History Medical History Date Comments Animal scratch 03/13/2019 NSTEMI (non-ST elevated myoc ardial infarction) ([facility]) 08/28/2018 Encounter due to AICD at end of battery life 08/30/2018 Added automatically from [facility] for surgery [id number] Pseudoaneurysm following procedure 09/03/2018 S/P coronary artery stent placement 09/19/2018 Continuous dependence on cig arette smoking 03/13/2019 Family History Medical History Relation Name Comments No Known Problems Father No Known Problems Mother Relation Name Status Comments Father Mother Social History Tobacco Use Types Packs/Day Years Used Date Smoking Tobacco: Former Cigarettes 1 15.1 S tarted: 08/23/2018 Smokeless Tobacco: Never Tobacco Cessation:Counseling Given: Not Answered Comments:last cigarette 4 days ago Alcohol Use Standard Drinks/Week Comments Not Currently 0 (1 standard drink = 0.6 oz pur e alcohol) PHQ-2 Answer Date Recorded PHQ-2 Score 0 12/12/2018 Sex and Gender Information Value Date Recorded Sex Assigned at Not on file Legal Sex Male 2:13 AM MALLET CUTTER Gender Identity Not on file Sexual Orientation Not on file Obstetrics History Last Filed Vital Signs Vital Sign Reading Time Taken Comments Blood Pressure 118/74 11/21/2024 10:30 AM CDT Pulse 77 11/21/2024 10:30 AM CDT Temperature 36.5 C (97.7 F) 06/12/2019 10:19 AM MALLET CUTTER Respiratory Rate 18 06/12/2019 10:19 AM MALLET CUTTER Oxygen Saturation 99% 11/21/2024 10:30 AM CDT Inhaled Oxygen Concentration - - Weight 94.8 kg (209 lb) 11/21/2024 10:30 AM CDT Height 180.3 cm (5' 11) 11/21/2024 10:30 AM CDT Body Mass Index 29.15 11/21/2024 10:30 AM CDT Plan of Treatment Health Maintenance Due Date [...] telling anyone). Medical Devices Implanted Type Area Tape Recording Machine Operator Device Identifier Shelf Expiration Date Model / Serial / Lot Medtronic Cardiac Rhythm Mgmt [id number] Visia Af Mri Surescan [id number] Defibrillator Cardiac - [id number] - [id number] Implanted:Qty: 1 on 09/06/2018 by Temo Mederos MD at [facility] ICD N/A: Chest Medtronic Cardiac Rhythm Mgmt 11/05/2019 [id number] / [id number] / [employer] Shantelle [id number] Synergy 3.5mm 16mm 144cm Radiopaque 1 Access Port Inflation Lumen - [id number] - [id number] Implanted:Qty: 1 on 08/28/2018 by Abdirashid Larsen MD PhD at [facility] Stent N/A: Coronary [employer] Shantelle 05/13/2020 [id number] / [id number] / [id number] [employer] [id number] Synergy 2.5mm 38mm 144cm Radiopaque 1 Access Port Inflation Lumen - [id number] - [id number] Implanted:Qty: 1 on 08/28/2018 by Abdirashid Larsen MD PhD at [facility] Stent N/A: Coronary [employer] Shantelle 06/06/2020 [id number] / [id number] / [id number] Icd Left: Chest Procedures Procedure Name Priority [...] ICD is functioning appropriately according to the recycle worker's recommendations. Appropriate battery voltage, charge time, shock [...] Result from Last [address] [facility] MEDICARE [facility] MEDICARE [facility] MEDICARE SUPPLEMENT Advance Directives For more information, please contact: [phone] * Full Code (Latest Code Status on File) Date Activated Date Inactivated Comments 08/27/2018 8:59 PM 08/29/2018 10:12 PM Care Teams Training And Development Rep Relationship Specialty Start Date End Date Vika Landa PA [address] [place] [address] PCP - General 10/14/21 No, Physician 08/27/18
--- OUTSIDE RECORDS SUMMARY | 2024-11-30 23:56 | XMS_ITS | Encounter Summary ---
Author Name [facility] Organization [facility] Address [address] [place] [id number] Support Name Relationship Address Phone WINSTON PERALTA Next of Kin [address] [place] [address] KATHRYN WINSTON Emergency Contact [address] [place] [address] Selected Encounter This section includes the information on record at [place] for the Encounter. Date/Time Encounter Type Encounter Description Reason Provider Source Oct 07, 2024 03:29 PM Outpatient Encounter GENERAL INTERNAL MEDICINE ARON NOLAND Mian Encounter Template Text not used by [place] Plan of Treatment: Future Appointments (+ 6 months) and Future Tests (+/- 45 days) The Plan of Treatment section includes future care activities for the patient from all [place] treatmentfacilities. This section includes future appointments and future orders which are active, pending or scheduled. Future Appointments This section includes appointments that were scheduled to occur 6 months from the date of the Encounter, up to a maximum of 20 appointments. The data comes from all [place] treatment facilities. Appointment Date/Time Appointment Type Appointme nt Facility Name Dec 18, 2024 01:00 PM AMBULATORY - MEDICINE [facility] Social History: Smoking Status (Most current) and Tobacco Use (All prior to encounter date) This section includes the most current, and the historical, smoking and tobacco- related health factors from the [place] facility where the Encounter took place. Current Smoking Status This section includes the most current smoking, or tobacco-related health factor, from the [place] facility where the Encounter took place. Date/Time Current Smoking Status Garrett deng Apr 14, 2011 02:34 PM CURRENT TOBACCO USER [facility] Tobacco Use History This section includes a history of the smoking, or tobacco-related health factors, that were collected on or before the date of the Encounter. The data comes from the [place] facility where the Encounter took place. Date/Time Smoking Status/Tobacco Use Comment F acility Apr 14, 2011 02:34 PM TOBACCO MEDS OFFERED BUT DECLINED [facility] Aug 10, 2009 10:49 AM CURRENT TOBACCO USER [facility] May 02, 2008 02:29 PM CURRENT TOBACCO USER [facility] Mar 20, 2007 01:46 PM CURRENT TOBACCO USER HE STATED HE KNOWS HE NEEDS TO STOP SMOKING AND HE IS WILLING TO TRY,HAS MORE INVOLVED CARDIAC PROBLEMS. [facility] Jan 25, 2007 12:21 PM CURRENT TOBACCO USER [facility] Jan 25, 2007 12:21 PM TOBACCO OFFERRED PT MEDS (PROVIDER) [facility] Jan 25, 2007 12:21 PM TOBACCO OFFERRED STOP SMOKING CLINIC [facility] Jan 16, 2007 12:00 PM CURRENT TOBACCO USER [facility] Nov 28, 2006 10:47 PM IC/PATIENT IS SMOKER [facility] Nov 28, 2006 10:47 PM PATIENT GIVEN TOBACCO HANDOUT [facility] Jul 01, 2005 04:43 PM CURRENT TOBACCO USER [facility] Jul 01, 2005 04:43 PM SMOKER 1-2 PACKS [facility] Nov 19, 2004 10:48 AM CURRENT TOBACCO USER [facility] Nov 19, 2004 10:48 AM SMOKER 1-2 PACKS [facility] Nov 19, 2004 10:48 AM TOBACCO PRECONTEMPLATION STAGE [facility] Aug 19, 2004 10:28 AM CURRENT TOBACCO USER [facility] Aug 19, 2004 10:28 AM SMOKER 1-2 PACKS [facility] Aug 19, 2004 10:28 AM TOBACCO PRECONTEMPLATION STAGE [facility] Jul 19, 2004 02:48 PM CURRENT TOBACCO USER [facility] Jul 19, 2004 02:48 PM SMOKER 1-2 PACKS [facility] Jul 19, 2004 02:48 PM TOBACCO PRECONTEMPLATION STAGE [facility] Mar 17, 2004 01:03 PM CURRENT TOBACCO USER [facility] Mar 17, 2004 01:03 PM SMOKER 1-2 PACKS [facility] Advance Directives: All historical and current Section Date Range: From patient's date of to the date document was created. This section includes ALL of a patient's completed or amended [place] Advance and Rescinded Directives. The entries below indicate that a directive exists for the patient, but an actual copy is not included with this document. The data comes from all [place] facilities. Date Advance Directives Provider Source Jul 04, 2005 ADVANCE DIRECTIVE TATIBOBBI KNAPP IS [facility] Encounter Notes: All associated encounter notes This [...] Facility: Jul Method of Contact: Notified from [facility] worklist Notification ID: [id number] [facility] Referral #: Closed - Submit for [facility] Name: Hospital: [facility] Address: [facility] [address] City: [place] State: [place] Zip Code: [address] [facility] Facility Point of Contact: Name: Taina Lakhani Chief complaint: Back Pain Primary Diagnosis: Disposition Unknown at time of intake note entry Faxed request for records to [facility] /mandy/ BRIAN NAVARRO [facility] NON DESTRUCTIVE EVALUATION TECHNICIAN Signed: 10/07/2024 15:32 10/09/2024 ADDENDUM STATUS: COMPLETED Records r/t this episode of care can be found in [facility]. Please review attached DC summary and place any necessary referrals/consults DERREK to avoid non-payment for follow-up services. /es/ J[place]Y [place] ADVANCED OYSTERMAN Signed: 10/09/2024 11:33 BRIAN NAVARRO [facility]
[2024-12-01 00:02] VITALS: BP 133/85; PULSE 77; RESP 17; TEMP 36.4; O2SAT 98
--- NOTE | 2024-12-01 00:04 | ECG_ITS ---
Test Date: 2024-12-01 00:41:10 Measurements Intervals [place] Rate: 61 P: 59 VT: 210 QRS: 210 QRSD: 179 T: 27 QT: 490 QTc: 495 Interpretive Statements SINUS RHYTHM WITH FIRST DEGREE AV BLOCK RIGHT AXIS DEVIATION RIGHT BUNDLE BRANCH BLOCK BASELINE ARTIFACT- I, III, AVL, AVF ABNORMAL ECG No previous ECG available for comparison Electronically Signed On 12-01-2024 07:51:50 CDT by Perez Ariza D.O.
[2024-12-01 00:18] LABS: Hematocrit 48.2 % (42.0-52.0); Hemoglobin 16.2 g/dL (14.0-18.0); Immature Granulocyte Percent A 0.2 % (0-0.5); Lymphocytes Absolute Auto 1.52 K/mm3 (0.9-3.2); Mean Corpuscular HGB Conc 33.6 g/dl (32-36); Mean Corpuscular Hemoglobin 30.5 pg (26-34); Mean Corpuscular Volume 90.6 fl (80-100); Nucleated Red Blood Cells Absolute Auto 0.000 K/mm3 (0.0-0.012); Nucleated Red Blood Cells Perc 0.0 % (0.0-0.2); Platelet Count Result 181 k/mm3 (150-375); Red Blood Count 5.32 M/mm3 (4.6-6.20); White Blood Count 8.1 K/mm3 (4.5-10.0)
[2024-12-01 00:20] LABS: Estimated CRCL calculation 45 ml/min; Estimated Glomerular Filt Rate 54
--- NOTE | 2024-12-01 00:21 | ED.NEUROSD ---
HPI - Neuro Symptoms/Deficit General Chief Complaint: Neuro Symptoms/Deficit Stated Complaint: headache x12 hours Time Seen by Provider: 12/01/24 00:14 History of Present Illness HPI Narrative: 74-year-old male with a past medical history including coronary artery disease, cardiomyopathy with AICD, history of CABG. He presents to the emergency department with acute neurological deficits the onset approximately 1 hour prior to arrival 11:00 p.m.. Patient states he was sitting down watching TV when all the sudden he had vision loss and blurry vision. He we can complaining of neck pain on the right side of his neck and pain behind his right eye. He knows that he was having difficulty manipulating his left arm and dropped the remote from his left hand and felt numbness and weakness in the left upper extremity. No history of strokes in the past, no traumatic injuries. Was otherwise in his normal state of health. Takes aspirin and Plavix but no other anticoagulation. Family is present at bedside and provides collateral formation and corroborates patient's story. Last known well approximate 11:00 p.m. patient immediately evaluated as a potential stroke with obvious neurological deficits including left superior homonymous quadrantanopia and left upper extremity numbness with slight drift. Stroke was activated at this time with CT head and CT angiography of the head neck. Blood glucose was normal 115. Laboratory studies obtained. Related Data Home Medications ?Medication ?Instructions ?Recorded ?Confirmed ?Last Taken ?Type albuterol sulfate 0.63 mg/3 mL 0.63 mg inhalation Q6H PRN Wheezing 09/06/21 01/25/22 09/06/21 12:01 History solution for nebulization albuterol sulfate 90 mcg/actuation 2 puff inhalation Q4-6H 09/06/21 01/25/22 09/05/21 History aerosol inhaler aspirin 81 mg tablet 81 mg PO DAILY 09/06/21 01/25/22 09/05/21 History atorvastatin 80 mg tablet 80 mg PO DAILY 09/06/21 01/25/22 09/05/21 History clopidogrel 75 mg tablet 75 mg PO DAILY 09/06/21 01/25/22 09/05/21 History carvedilol 6.25 mg tablet (Coreg) 12.5 mg PO Q12HR 01/25/22 01/25/22 Unknown History spironolactone 25 mg tablet 25 mg PO DAILY 01/25/22 01/25/22 Unknown History Allergies Allergy/AdvReac Type Severity Reaction Status Date / Time No Known Allergies Allergy Unknown Verified 08/15/24 15:48 Review of Systems Review of Systems: As reviewed above in [facility] Past Medical History Medical History MADHU (obstructive sleep apnea) ICD (implantable cardioverter-defibrillator) in place Bradycardia PVCs (premature ventricular contractions) Ischemic cardiomyopathy Acute on chronic combined systolic and diastolic CHF (congestive heart failure) Cardiac defibrillator in situ HTN (hypertension), malignant Hyperlipidemia COPD (chronic obstructive pulmonary disease) CHF (congestive heart failure) Myocardial infarction CAD (coronary artery disease) Surgical History Surgical History History of coronary artery stent placement X2 S/P triple vessel bypass History of tonsillectomy Family History Family History Mother Acute myocardial infarction Sibling Breast cancer Social History Social History Social History: The patient lives at home with his . He has 4 children. His is the durable power deputy prosecuting attorney for healthcare. The patient occasionally has a social drink. The patient stated that he quit smoking at the beginning of COV 19. He is retired. Code status full code Smoking packs per day: 1 Smoking cigarettes per day: 20.0 Years smoked: 50 Smoking pack-years: 50.00 Smoking status: Former smoker Tobacco type: cigarettes Second hand tobacco smoke exposure: No Alcohol intake: former Spiritual care concerns: No Exam Narrative: GENERAL: [Well-appearing, well-nourished, and in no acute distress.] HEAD: [Normocephalic, atraumatic.] EYES: [PERRLA and EOMI.] ENT: Nares clear, no rhinorrhea or epistaxis. Mucous membranes moist. NECK: Supple. CHEST: [Clear to auscultation. No respiratory distress.] HEART: [Regular rate and rhythm]. No murmur heard. [Normal peripheral pulses.] ABDOMEN: [Soft, nondistended], [nontender], [No rigidity or guarding] EXTREMITIES: Normal range of motion. [No edema.] SKIN: Warm, dry, no rash. NEURO: Left superior homonymous quadrantanopia, left upper extremity drift mild, left upper extremity sensory deficit mild. No slurring speech, awake alert oriented answers questions appropriately. No lower extremity symptoms. No ataxia in the upper extremities. No truncal ataxia. PSYCH: [Normal mood and affect.] Course Vital Signs Vital signs: Vital Signs Temperature 36.4 C L 12/01/24 00:02 Pulse Rate 77 12/01/24 00:02 Respiratory Rate 17 12/01/24 00:02 Blood Pressure 133/85 12/01/24 00:02 Pulse Oximetry 98 12/01/24 00:02 Oxygen Delivery Room Air 12/01/24 00:02 Temperature 36.4 C L 12/01/24 00:02 Pulse Rate 61 12/01/24 00:30 Respiratory Rate 15 12/01/24 00:30 Blood Pressure 135/88 12/01/24 00:30 Pulse Oximetry 97 12/01/24 01:24 Oxygen Delivery Room Air 12/01/24 00:02 MDM - Neuro Symptoms/Deficit MDM Narrative Medical decision making narrative: 74-year-old male with a past medical history including coronary artery disease, cardiomyopathy with AICD, history of CABG. He presents to the emergency department with acute neurological deficits the onset approximately 1 hour prior to arrival 11:00 p.m.. Patient states he was sitting down watching TV when all the sudden he had vision loss and blurry vision. He we can complaining of neck pain on the right side of his neck and pain behind his right eye. He knows that he was having difficulty manipulating his left arm and dropped the remote from his left hand and felt numbness and weakness in the left upper extremity. No history of strokes in the past, no traumatic injuries. Was otherwise in his normal state of health. Takes aspirin and Plavix but no other anticoagulation. Family is present at bedside and provides collateral formation and corroborates patient's story. Last known well approximate 11:00 p.m. patient immediately evaluated as a potential stroke with obvious neurological deficits including left superior homonymous quadrantanopia and left upper extremity numbness with slight drift. Stroke was activated at this time with CT head and CT angiography of the head neck. Blood glucose was normal 115. Laboratory studies obtained. Left superior homonymous quadrantanopia, left upper extremity drift mild, left upper extremity sensory deficit mild. No slurring speech, awake alert oriented answers questions appropriately. No lower extremity symptoms. No ataxia in the upper extremities. No truncal ataxia. NIH stroke scale 3. Patient is normal vital signs here, CT head and CT angiography obtained. Laboratory studies ordered. Patient is within thrombolytics window with no obvious contraindications after discussion with patient's family and review of the EMR and current medication list. Awaiting CT results and will discussed with Stroke Neurology at [facility] as a consult with recommendations. CT head shows no acute intracranial findings, CT angiography shows no large vessel occlusion but occlusion of the P2/P3 segment of the right side consistent with his symptomatology and likely causing his stroke symptoms. No acute findings within the neck. Arterial structure without any flow limitations in the neck. Spoke to the radiologist who recommended neurology consultation and evaluation which is currently underway. Spoke to the [facility] transfer system and was connected with the on-call stroke neurologist Dr. Pichardo. We went over patient's clinical exam findings including left superior quadrant anopia and left-sided arm deficits with his low NIH stroke scale score. Patient is in the therapeutic window for TNK and has no contraindications based on review of the EMR, conversations with the patient and the family member at bedside and the neurologist on the phone. Recommendations are to initiate TNK after risks and benefits analysis discussion with the family. Spoke to the emergency physician at the [facility] ED Dr. Garcia who accepted the patient is a direct ER to ER transfer as acute ischemic stroke. Family member and patient comfortable with the transfer process. Weight based TNK administered at 23.5 mg after we went over the risks and benefits as well as alternatives to thrombolytics therapy. Patient and family were comfortable with the risks and we successfully administered the medication. There is significant delay with ground transportation to another facility at this time with multiple hour delay according to our personal secretary thus decision was made to transfer him via air evac for expedient care. Air evac has arrived and patient has been transfer success with any further intervention or complications. Medical Records Attestation: I reviewed the patient's medical records. Lab Data Attestation: I reviewed the patient's lab results. 12/01/24 00:11 12/01/24 00:18 Labs: Lab Results 12/01/24 12/01/2425 Range/Units 00:04 00:11 00:18 WBC 8.1 (4.5-10.0) K/mm3 RBC 5.32 (4.6-6.20) M/mm3 Hgb 16.2 (14.0-18.0) g/dL Hct 48.2 (42.0-52.0) % MCV 90.6 (80-100) fl MCH 30.5 (26-34) pg MCHC 33.6 (32-36) g/dl RDW 12.4 (11.5-14.5) % Plt Count 181 (150-375) k/mm3 MPV 10.8 H (7.4-10.4) fl Immature Gran % (Auto) 0.2 (0-0.5) % Neut % (Auto) 71.6 (45.5-73.1) % Lymph % (Auto) 18.8 (18.3-44.2) % Leake % (Auto) 4.0 (2.6-8.5) % Eos % (Auto) 4.4 (0-4.4) % Baso % (Auto) 1.0 (0.2-1.2) % Lymph # (Auto) 1.52 (0.9-3.2) K/mm3 Leake # (Auto) 0.3 (0.1-0.6) K/mm3 Eos # (Auto) 0.4 H (0-0.3) K/mm3 Baso # (Auto) 0.1 (0.0-0.1) K/mm3 Abs Immat Gran (auto) 0.02 (0.00-0.031) K/mm3 Absolute Neuts (auto) 5.8 (1.3-6.7) K/mm3 Absolute Nucleated RBC 0.000 (0.0-0.012) K/mm3 Nucleated RBC % 0.0 (0.0-0.2) % PT 14.1 (11.1-14.7) Seconds INR 1.1 APTT 24.3 (22.3-36.8) Seconds Sodium 137 (137-145) mmol/L Potassium 4.0 (3.4-5.0) mmol/L Chloride 105 (98-107) mmol/L Carbon Dioxide 25 (22-30) mmol/L Anion Gap 7 (4-12) mmol/L BUN 14 (9-20) mg/dL Creatinine 1.10 1.30 (0.7-1.3) mg/dL Estim Creat Clear Calc 53 45 ml/min Estimated GFR > 60 54 L (59 - ) Glucose 96 (65-110) mg/dL POC Capillary Glucose 115 H (65-105) mg/dl Lactic Acid (0.7-2.0) mmol/L Calcium 9.3 (8.4-10.2) mg/dL Total Bilirubin 0.7 (0.2-1.3) mg/dL AST 21 (17-59) U/L ALT 15 (6-50) U/L Alkaline Phosphatase 73 (38-126) U/L Ammonia (9-30) umol/L Troponin I < 0.012 (0.000-0.034) ng/mL Total Protein 6.6 (6.3-8.2) g/dL Albumin 4.1 (3.5-5.1) g/dL Urine Color (Yellow) Urine Appearance (Clear) Urine pH (5.0-9.0) Ur Specific Patterson (1.001-1.035) Urine Protein (Negative) mg/dL Urine Glucose (UA) (Negative) mg/dL Urine Ketones (Negative) mg/dL Ur Blood (Man) (Negative) Urine Nitrate (Negative) Urine Bilirubin (Negative) Urine Urobilinogen (<2.0) mg/dL Add Ur Microanalysis Leukocyte Esterase Rfl (Negative) ARIELLE/UL Urine RBC (0-2) /hpf Urine WBC (0-3) /hpf Ur Squamous Epith Cells (Few) /hpf Urine Bacteria /hpf Urine Casts Urine Opiates Screen (Negative) Urine Methadone Screen (Negative) Ur Barbiturates Screen (Negative) Ur Phencyclidine Scrn (Negative) Ur Amphetamine Screen (Negative) U Benzodiazepines Scrn (Negative) Urine Cocaine Screen (Negative) U Cannabinoids Screen (Negative) Blood Type Antibody Screen 12/01/24 12/01/24 Range/Units 00:36 01:30 WBC (4.5-10.0) K/mm3 RBC (4.6-6.20) M/mm3 Hgb (14.0-18.0) g/dL Hct (42.0-52.0) % MCV (80-100) fl MCH (26-34) pg MCHC (32-36) g/dl RDW (11.5-14.5) % Plt Count (150-375) k/mm3 MPV (7.4-10.4) fl Immature Gran % (Auto) (0-0.5) % Neut % (Auto) (45.5-73.1) % Lymph % (Auto) (18.3-44.2) % Leake % (Auto) (2.6-8.5) % Eos % (Auto) (0-4.4) % Baso % (Auto) (0.2-1.2) % Lymph # (Auto) (0.9-3.2) K/mm3 Leake # (Auto) (0.1-0.6) K/mm3 Eos # (Auto) (0-0.3) K/mm3 Baso # (Auto) (0.0-0.1) K/mm3 Abs Immat Gran (auto) (0.00-0.031) K/mm3 Absolute Neuts (auto) (1.3-6.7) K/mm3 Absolute Nucleated RBC (0.0-0.012) K/mm3 Nucleated RBC % (0.0-0.2) % PT (11.1-14.7) Seconds INR APTT (22.3-36.8) Seconds Sodium (137-145) mmol/L Potassium (3.4-5.0) mmol/L Chloride (98-107) mmol/L Carbon Dioxide (22-30) mmol/L Anion Gap (4-12) mmol/L BUN (9-20) mg/dL Creatinine (0.7-1.3) mg/dL Estim Creat Clear Calc ml/min Estimated GFR (59 - ) Glucose (65-110) mg/dL POC Capillary Glucose (65-105) mg/dl Lactic Acid 1.6 (0.7-2.0) mmol/L Calcium (8.4-10.2) mg/dL Total Bilirubin (0.2-1.3) mg/dL AST (17-59) U/L ALT (6-50) U/L Alkaline Phosphatase (38-126) U/L Ammonia < 9 L (9-30) umol/L Troponin I (0.000-0.034) ng/mL Total Protein (6.3-8.2) g/dL Albumin (3.5-5.1) g/dL Urine Color Dark yellow (Yellow) Urine Appearance Clear (Clear) Urine pH 5.0 (5.0-9.0) Ur Specific Patterson > 1.045 H (1.001-1.035) Urine Protein Negative (Negative) mg/dL Urine Glucose (UA) Negative (Negative) mg/dL Urine Ketones Negative (Negative) mg/dL Ur Blood (Man) Negative (Negative) Urine Nitrate Negative (Negative) Urine Bilirubin Negative (Negative) Urine Urobilinogen 1.0 (<2.0) mg/dL Add Ur Microanalysis Reviewed Leukocyte Esterase Rfl Negative (Negative) ARIELLE/UL Urine RBC 0-2 (0-2) /hpf Urine WBC 0-5 (0-3) /hpf Ur Squamous Epith Cells None seen (Few) /hpf Urine Bacteria None seen /hpf Urine Casts 0-2 Urine Opiates Screen Negative (Negative) Urine Methadone Screen Negative (Negative) Ur Barbiturates Screen Negative (Negative) Ur Phencyclidine Scrn Negative (Negative) Ur Amphetamine Screen Negative (Negative) U Benzodiazepines Scrn Negative (Negative) Urine Cocaine Screen Negative (Negative) U Cannabinoids Screen Negative (Negative) Blood Type A Positive Antibody Screen Negative Imaging Data Attestation: I personally reviewed and interpreted this imaging study as follows: My impression: Acute occlusion of the right P2/P3 segment, no intracranial hemorrhage Critical Care Time Critical Care Time Critical Care Time: Yes Total Critical Care Time: 75 Discharge Plan Discharge Clinical Impression: Acute ischemic right [employer] stroke, Left homonymous superior quadrantanopia, Neurologic deficit due to acute ischemic cerebrovascular accident (CVA) Patient Disposition: Acute Care Hospital Condition: Serious Patient Language: Kinyarwanda Prescriptions: No Action [id number] 160-9-4.8 mcg/actuation HFA aerosol inhaler 2 inh inhalation BID Qty: 10.7 3RF spironolactone 25 mg Tablet 25 mg PO DAILY carvedilol [Coreg] 6.25 mg tablet 12.5 mg PO Q12HR atorvastatin 80 mg Tablet 80 mg PO DAILY aspirin 81 mg Tablet 81 mg PO DAILY clopidogrel 75 mg Tablet 75 mg PO DAILY albuterol sulfate 90 mcg/actuation Hfa Aerosol Inhaler 2 puff INHALATION Q4-6H albuterol sulfate 0.63 mg/3 mL Solution For Nebulization 0.63 mg INHALATION Q6H PRN (Reason: Wheezing) lisinopril 5 mg Tablet 5 mg PO QAM Qty: 30 0RF Jardiance 10 mg Tablet 10 mg PO QAM Qty: 30 2RF hydrocodone-acetaminophen 5-325 mg tablet 1 tablet PO Q8H PRN (Reason: pain) Qty: 14 0RF methocarbamol 750 mg tablet 750 mg PO TID PRN (Reason: pain) Qty: 20 0RF lidocaine 5 % adhesive patch,medicated 1 patch topical DAILY Qty: 15 0RF Rx Instructions: leave on most painful area for up to 12 hrs prednisone 50 mg tablet 50 mg PO DAILY 5 Days Qty: 5 0RF Follow-up/Referrals: UNKNOWN,DOCTOR [Primary Care Provider] - Time of Disposition: 01:53 Quality Stroke Date of last known normal: 11/30/24 Time of last known normal: 23:00 Stroke Scale Stroke Scale 1: Stroke scale date:: 12/01/24 Stroke scale time:: 00:10 1a Level of consciousness: alert-0 1b Level of consciousness questions: answers both correctly-0 1c Level of consciousness commands: obeys both correctly-0 2 Best gaze: normal-0 3 Visual: partial hemianopia-1 (Left superior quadrant anopia) 4 Facial palsy: normal-0 5a Motor: left arm: drift-1 5b Motor: right arm: no drift-0 6a Motor: left leg: no drift-0 6b Motor: right leg: no drift-0 7 Limb ataxia: absent-0 8 Sensory: pinprick less sharp-1 9 Best language: no aphasia-0 10 Dysarthria: normal-0 11 Extinction and inattention: no abnormality-0 Level:: 3
[2024-12-01 00:28] LABS: INR 1.1; Prothrombin Time 14.1 Seconds (11.1-14.7)
[2024-12-01 00:29] LABS: Alanine Aminotransferase 15 U/L (6-50); Albumin Level 4.1 g/dL (3.5-5.1); Alkaline Phosphatase 73 U/L (38-126); Anion Gap 7 mmol/L (4-12); Aspartate Amino Transferase 21 U/L (17-59); Bilirubin,Total 0.7 mg/dL (0.2-1.3); Blood Urea Nitrogen 14 mg/dL (9-20); Calcium 9.3 mg/dL (8.4-10.2); Carbon Dioxide 25 mmol/L (22-30); Chloride 105 mmol/L (98-107); Estimated CRCL calculation 53 ml/min; Estimated Glomerular Filt Rate > 60; Glucose 96 mg/dL (65-110); Partial Thromboplastin Time 24.3 Seconds (22.3-36.8); Potassium 4.0 mmol/L (3.4-5.0); Sodium 137 mmol/L (137-145); Total Protein 6.6 g/dL (6.3-8.2)
[2024-12-01 00:30] VITALS: BP 135/88; PULSE 61; PULSE 69; RESP 15; O2SAT 97
--- NOTE | 2024-12-01 00:32 | PCRCNOTE ---
[facility] unable to obtain ABG. Per Dr. Zayas the order will be discontinued as patient will be transferred to another facility.
[2024-12-01 00:41] LABS: Troponin I < 0.012 ng/mL (0.000-0.034)
--- OUTSIDE RECORDS SUMMARY | 2024-12-01 00:43 | XMS_ITS | Clinical Summary ---
Author Organization [place] [id number] [facility] Address [address] [place] [address] Care Team Providers Care Appliance Installer Name Role Phone No, Physician Unavailable Vika Landa Primary Care Provider [phone] Allergies No known active allergies Medications aspirin 81 mg enteric coated tabletIndications :Coronary artery disease involving [place] coronary artery of [place] heart with angina pectoris Take 1 tablet (81 mg total) by mouth daily 90 tablet 3 021 Active atorvastatin (LIPITOR) 80 mg tabletIndications :Coronary artery disease involving [place] coronary artery of [place] heart with angina pectoris Take 1 tablet (80 mg total) by mouth daily 90 tablet 021 Active clopidogreL (PLAVIX) 75 mg tabletIndications [...] CDT): s/p ICD placement (Medtronic). Follow with Director Skills Dr. Palomo at [facility]. ECHO in 02/2018 with reports [...] CABG (1998) and stentings. Known graft and [place] artery occlusive disease. Most recent NSTEMI in 02/2018 managed medically without intervention. - Increasing atorvastatin from 20mg to 80mg given apparent worsening of CAD occlusive disease of [place] coronaries. Continue on Aspirin 81mg QD History [...] Description 11/21/2024 10:30 AM CDT Office Visit [facility] [address] [place] [address] Nilda Quiroga NP Chronic HFrEF (heart failure with reduced ejection fraction) ([facility]) (Primary Dx); Ischemic cardiomyopathy; ICD (implantable cardioverter-defibr illator) in place [Z95.810]; Coronary artery disease involving [place] coronary artery of [place] heart without angina pectoris; Chronic obstructive pulmonary disease, unspecified COPD type (HCC) 11/07/2024 Telephone [facility] [address] [place] [address] Nilda Quiroga NP 09/18/2024 9:45 AM CDT Ancillary Procedure [facility] [address] [facility] [address] [place] [phone] ICD (implantable cardioverter-defibr illator) in place [Z95.810] (Primary Dx); Ischemic cardiomyopathy; NSVT (nonsustained ventricular tachycardia) ([facility]) from Last 3 Months Immunizations Immunization Administration Dates Next Due Influenza, Trivalent, High D ose, Split, Preservative Free, Intramuscular 03/13/2019 Pneumococcal Conjugate PCV 13 06/12/2019 Tdap 03/13/2019 Medical History Medical History Date Comments Animal scratch 03/13/2019 NSTEMI (non-ST elevated myoc ardial infarction) ([facility]) 08/28/2018 Encounter due to AICD at end of battery life 08/30/2018 Added automatically from [employer] uest for surgery [id number] Pseudoaneurysm following procedure 09/03/2018 S/P coronary artery [...] on file Legal Sex Male 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 Medical Devices Implanted Type Area Cement Storage Worker Device Identifier Shelf Expiration Date Model / Serial / Lot Medtronic Cardiac Rhythm Mgmt [id number] Visia Af Mri Surescan [id number] Defibrillator Cardiac - [id number] - [id number] Implanted:Qty: 1 on 09/06/2018 by Temo Mederos MD at [facility] ICD N/A: Chest Medtronic Cardiac Rhythm Mgmt 11/05/2019 [id number] / [id number] / [employer] [id number] Synergy 3.5mm 16mm 144cm Radiopaque 1 Access Port Inflation Lumen - [id number] - [id number] Implanted:Qty: 1 on 08/28/2018 by Abdirashid Larsen MD PhD at [facility] Stent N/A: Coronary [employer] 05/13/2020 [id number] / [id number] / [id number] [employer] [id number] Synergy 2.5mm 38mm 144cm Radiopaque 1 Access Port Inflation Lumen - [id number] - [id number] Implanted:Qty: 1 on 08/28/2018 by Abdirashid Larsen MD PhD at [facility] Stent N/A: Coronary [employer] 06/06/2020 [id number] / [id number] / [id number] Icd Left: Chest Procedures Procedure Name Priority [...] ICD is functioning appropriately according to the field service engineer's recommendations. Appropriate battery voltage, charge time, shock [...] Result from Last 3 Months Insurance MEDICARE [facility] Address: [id number] ATTN FEE BASIS [address] [place] [address] MEDICARE [facility] MEDICARE [facility] MEDICARE SUPPLEMENT Advance Directives For more information, please contact: [phone] * Full Code (Latest Code Status on File) Date Activated Date Inactivated Comments 08/27/2018 8:59 PM 08/29/2018 10:12 PM Care Teams Appliance Installer Relationship Specialty Start Date End Date Vika Landa PA [address] [place] [address] PCP - General 10/14/21 No, Physician 08/27/18
--- OUTSIDE RECORDS SUMMARY | 2024-12-01 00:43 | XMS_ITS | Clinical Summary ---
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 Gender Identity Not on file Sexual Orientation [...] 180.3 cm (5' 11) 06/18/2024 10:35 AM METAL AND PLASTIC HEATER Body Mass Index 29.85 06/18/2024 10:35 AM METAL AND PLASTIC HEATER Plan of Treatment Upcoming Encounters Date Type Department Care Team (Late st Contact Info) Description 05/12/2025 11:00 AM METAL AND PLASTIC HEATER Office Visit [facility] - [place] [address] [facility] [place] [address] Fortunato Kathleen MD [address] [facility] [address] [place] [address] Health Maintenance Due Date Last Done Comments [...] MEDICARE PART A AND B [address] [place] [id number]
--- OUTSIDE RECORDS SUMMARY | 2024-12-01 00:43 | XMS_ITS | Continuity of Care Document ---
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 It does not include entries that were removed or entered in error. Problem Status Onset Date Problem Type Date of Resolution Comments Source Fungus, disease NEC Active 1 Condition Dec 04, 2000 Entered By: ALEXA BO Comment: typical jock itch involving inguinal area [facility] Acute myocardial infarction Inactive 9 Condition 12/04/2000 Dec 04, 2000 Entered By: ALEXA BO Comment: CABG 3 vessel post mi [facility] Acute myocardial infarction, unspecified site, episode of care unspecified (ICD- Active Condition [facility] ANGINA PECTORIS NEC/NOS Active Condition [...] LHC/grafts. Plan PTCA prox LAD in July [facility] DIAPHRAGMATIC HERNIA Active Condition [place]) ESOPHAGEAL REFLUX Active Condition [place] Hearing loss * (ICD-9-CM 389.9) Active Condition [facility] Hyperlipidemia * (ICD-9-CM 272.4) Active Condition [facility] Impacted cerumen * (ICD-9-CM 380.4) Active Condition [facility] Issue of Repeat Prescriptions (ICD-9-CM V68.1) Active Condition [facility] Nicotine Dependence (ICD-9-CM 305.1) Active Condition [facility] Old Myocardial Infarction (ICD-9-CM 412.) Active Condition [facility] Otitis Externa, Acute (ICD-9-CM 380.00) Active Condition [facility] Personal History of Tobacco Use (ICD-9-CM V15.82) Active Condition [facility] Postsurgical Aortocoronary Bypass Status (ICD-9-CM V45.81) Active Condition Jul 06 Entered By: ARLYN TAVERAS Comment: 1998: (BABIN-LAD, SVG-OM, SVG>RCA) [facility] Postsurgical Percutaneous Transluminal Coronary Angioplasty Status (ICD-9-CM V45 Active Condition Jul 26, 2005 Entered By: ANNA LOWERYI Comment: 07/26/05: Rotoblation/ PTCA/Cypher 2.5 X 8 stent X 1 Prox LAD [facility] S/P AICD Active Condition [facility] Medications Combined list of outpatient medications [...] A DAY ORAL ACTIVE JOSE BABCOCK 2006 [facility] CARVEDILOL 25MG TAB TAKE ONE-HALF TABLET BY MOUTH TWICE A DAY ORAL ACTIVE DANIELLE DAMICO 2011 [facility] LISINOPRIL 10MG TAB TAKE ONE-HALF TABLET BY MOUTH ONCE A DAY ORAL ACTIVE DANIELLE DAMICO AMMARIE T 2011 [facility] Immunizations Combined list of available immunizations from the Department of Defense and Veterans Affairs facilities. Immunization Series Date Given Administered By Site Reaction Lot Number CVX Code Drug Vacuum Form Operator Status Comments Source PNEUMOCOCCAL, UNSPECIFIED FORMULATION 2004 109 complet ed [facility] TD(ADULT) UNSPECIFIED FORMULATION 2004 139 complet ed [facility] INFLUENZA (HISTORICAL) 2003 88 complet ed [facility] FLU,3 YRS (HISTORICAL) 2000 88 complet ed [facility] Encounters Combined list of: 1) Encounters from Department of Veterans Affairs facilities going backup to the last 18 months, not all [place] inpatient encounters are included; 2) Encounters from the Department of [facility] facilities going backup to 280 months. Location Location Details Encounter Type Encounter Number Reason For Visit Attending Provider ADM Date DC Date Status Disposition Source [facility] Outpatient Encounter [id number] 01/30 [facility] N [facility] Outpatient Encounter [id number] MONI NOLAND 10/07 [facility] Outpatient Encounter [id number] 11/11 [facility] Social History Combined list of available smoking, tobacco, and other social history from Department of [facility] and Veterans Affairs facilities. Social History Type Response Date Comment Source Tobacco smoking status NHIS CURRENT TOBACCO USER 04/14/2011 [facility] History of tobacco use TOBACCO MEDS OFFERED BUT DECLINED 04/14/2011 [facility] History of tobacco use CURRENT TOBACCO USER 08/10/2009 [facility] History of tobacco use CURRENT TOBACCO USER 05/02/2008 [facility] History of tobacco use CURRENT TOBACCO USER 03/20/2007 HE STATED HE KNOWS HE NEEDS TO STOP SMOKING AND HE IS WILLING TO TRY,HAS MORE INVOLVED CARDIAC PROBLEMS. [facility] History of tobacco use TOBACCO OFFERRED PT MEDS (PROVIDER) 01/25/2007 [facility] History of tobacco use CURRENT TOBACCO USER 01/16/2007 [facility] History of tobacco use IC/PATIENT IS SMOKER 11/28/2006 [facility] History of tobacco use CURRENT TOBACCO USER 07/01/2005 [facility] History of tobacco use CURRENT TOBACCO USER 11/19/2004 [facility] History of tobacco use CURRENT TOBACCO USER 08/19/2004 [facility] History of tobacco use CURRENT TOBACCO USER 07/19/2004 [facility] History of tobacco use CURRENT TOBACCO USER 03/17/2004 [facility] History of tobacco use CURRENT SMOKER 12/04/2000 [facility] Plan of Care List of future care activities from Department of [facility] Affairs facilities. Additional future care activities may be listed in the Assessment and Plan section. Date/Time Care Activity Care Activity Detail Facili ty 12/18/2024 AMBULATORY - MEDICINE AMBULATORY - MEDICI [facility] Advance Directives List of completed, amended, or rescinded Advance Directives on record at Department of [facility] Affairs facilities. An actual copy of the Directive is not included. Date Advance Directive Provider Source 07/04/2005 ADVANCE DIRECTIVE BOBBI DUFFY [place]
[2024-12-01 00:56] LABS: Ammonia < 9 umol/L (9-30)
[2024-12-01] MEDS: TENECTEPLASE 50 MG/10 ML VIAL 23.5 MG IV PUSH (01:13)
--- NOTE | 2024-12-01 01:15 | PC.NURSE ---
elkin double check , vickie khan
--- NOTE | 2024-12-01 01:22 | PC.NURSE ---
This RN called and gave report to Nina MURILLO.
[2024-12-01 01:24] VITALS: O2SAT 97
[2024-12-01 01:58] LABS: Cannabinoid Screen Urine Negative (Negative)
--- NOTE | 2024-12-01 02:08 | PCRCNOTE ---
ABG delayed: patient gone to imaging
[2024-12-01 02:15] LABS: Need Manual Microscopic Reviewed; Non Pathogenic Casts 0-2
[2024-12-01 02:28] LABS: Add Urine Microscopic? YES; Appearance Urine Clear (Clear); Glucose Urine UA Negative (Negative); Leukocyte Esterase Ur Negative LEU/UL (Negative); Nitrate Urine Negative (Negative); Specific Grav Ur > 1.045 (1.001-1.035)
== END 2024-12-01 01:54 | disposition short-term general hospital (02) ==
LOC: ANHED 12-01 00:41
PROVIDERS: Emergency Provider Student in an Organized Health Care Education/Training Program
DX: I63.89 Other cerebral infarction (principal); H53.8 Other visual disturbances; I25.10 Atherosclerotic heart disease of native coronary artery without angina pectoris; I11.0 Hypertensive heart disease with heart failure; I50.9 Heart failure, unspecified; I25.2 Old myocardial infarction; J44.9 Chronic obstructive pulmonary disease, unspecified; Z87.891 Personal history of nicotine dependence
CPT/HCPCS: 36415; 37195; 70450; 70496; 70498; 71045; 80053; 80307; 81001; 82140; 82948; 83605; 84484; 85025; 85610; 85730; 86850; 86900; 86901; 93005; 99285; J3101; Q9967